=== PATIENT | male | born 1955 | race Caucasian/White ===

== ENCOUNTER 2022-02-26 17:17 | Emergency (ER) | payer MEDICARE, BC, SELFPAY ==
[2022-02-26 17:37] VITALS: BP 167/69; PULSE 69; RESP 18; TEMP 37.7; O2SAT 98; BMI 35.0
--- NOTE | 2022-02-26 17:44 | DI.RAD.S_ITS ---
PROCEDURE: XR CHEST 1V INDICATIONS: Shortness of breath TECHNIQUE: One view of the chest was acquired. COMPARISON: None. FINDINGS: Surgical changes and devices: None. Lungs and pleura: Lungs are clear. No pleural effusions or pneumothorax. There is linear platelike atelectasis on the right mid lung. Mediastinum: Mediastinal contours appear normal. Heart size is normal. Bones and chest wall: No suspicious bony lesions. Overlying soft tissues appear unremarkable. IMPRESSION: No acute cardiopulmonary abnormality. Dictated by: Daquan Alexander M.D. on 02/26/2022 at 18:36 Approved by: Daquan Alexander M.D. on 02/26/2022 at 18:36
[2022-02-26 18:28] LABS: Influenza A - CEPHEID Flu A NEGATIVE (NEGATIVE); Influenza B - CEPHEID Flu B NEGATIVE (NEGATIVE); Respiratory Syncytial Virus Negative (Negative)
[2022-02-26 18:50] LABS: COVID-19 CEPHEID 4-PLEX PCR Negative (Negative)
[2022-02-26 20:06] LABS: Add Manual Diff / Slide Review NO; Basophils Absolute Auto 0 /uL (0-100); Basophils Percent Auto 0.4 % (0-2); Eosinophils Absolute Auto 100 /uL (0-450); Eosinophils Percent Auto 1.1 % (2-4); Hematocrit 39.5 % (41-53); Hemoglobin 13.5 g/dL (13.5-17.5); Lymphocytes Absolute Auto 500 /uL (1100-4500); Lymphocytes Percent Auto 7.1 % (25-40); Mean Corpuscular HGB Conc 34.3 % (30-36); Mean Corpuscular Hemoglobin 29.3 PG (26-34); Mean Corpuscular Volume 85.6 fL (80-100); Monocytes Absolute Auto 600 /uL (0-900); Monocytes Percent Auto 7.5 % (3-14); Neutrophils Absolute Auto 6200 /uL (1500-7000); Neutrophils Percent Auto 83.9 % (50-75); Platelet Count 222 X10^3/uL (150-400); Red Blood Cell Count 4.61 X10^6/uL (4.5-5.9); Red Cell Distribution Width 14.7 % (11.6-14.8); White Blood Cell Count 7.4 X10^3/uL (4.5-11.0)
[2022-02-26 20:12] LABS: INR 1.1 (0.9-1.3); Prothrombin Time 13.1 SECONDS (10.1-12.7)
[2022-02-26 20:17] LABS: Lactate (Lactic Acid) 1.3 mmol/L (0.7-2.1)
[2022-02-26 20:18] LABS: Alanine Aminotransferase 43 IU/L (<50); Albumin 4.2 g/dL (3.5-5.0); Albumin Globulin Ratio 1.5 (1.0-2.8); Alkaline Phosphatase 68 U/L (38-126); Aspartate Aminotransferase 27 IU/L (17-59); BUN Creatinine Ratio 12.2 (6-22); Bilirubin Total 0.6 mg/dL (0.2-1.3); Blood Urea Nitrogen 12 mg/dL (9-20); Calcium 8.9 mg/dL (8.4-10.2); Carbon Dioxide 29 mmol/L (22-32); Chloride 98 mmol/L (98-107); Estimated Glomerular Filt Rate > 60 mL/min (>60); Globulin 2.8 g/dL (1.7-4.1); Glucose 156 mg/dL (80-110); HEMOLYSIS < 15 (0-50); Potassium 3.5 mmol/L (3.4-5.1); Sodium 135 mmol/L (137-145)
[2022-02-26 20:30] LABS: NT-proBNP (BNP-Adult 18+) 131 pg/mL (<125); Troponin I 0.018 ng/mL (0.01-0.034)
--- NOTE | 2022-02-26 22:30 | ED_ITS ---
HPI - General Adult General Chief complaint: Shortness of Breath/Dyspnea Stated complaint: fever is going up, cough Time Seen by Provider: 02/26/22 22:15 Source: patient Mode of arrival: Ambulatory Limitations: no limitations History of Present Illness HPI narrative: 66-year-old male who is here for evaluation for approximately 5 days of fever, shortness of breath, sore throat, sinus congestion. He did have COVID a little over 1 month ago but the symptoms he was experiencing at that time have resolved. He seemed to be new symptoms. No known sick contacts. No travel. has no symptoms. No vomiting. No change in bowel habits. Related Data Previous Rx's Medication Instructions Recorded albuterol sulfate 90 mcg/actuation 2 puff inhalation Q4-6H PRN 02/26/22 aerosol inhaler shortness of breath or wheezing #8.5 grams benzonatate 100 mg capsule 100 mg PO TID PRN cough #14 caps 02/26/22 Review of Systems Constitutional Constitutional: Reports system reviewed and no additional complaints, except as documented ENT Ears, Nose, Mouth, and Throat: Reports system reviewed and no additional complaints, except as documented Cardiovascular Cardiovascular: Reports system reviewed and no additional complaints, except as documented Respiratory Respiratory: Reports system reviewed and no additional complaints, except as documented Gastrointestinal Gastrointestinal: Reports system reviewed and no additional complaints, except as documented Integumentary/Breasts Skin/Breast: Reports system reviewed and no additional complaints, except as documented Hematologic/Lymphatic On Anticoagulants: No Allergic/Immunologic Allergic/Immunologic: Reports system reviewed and no additional complaints, except as documented Patient History alcohol intake frequency: a few times a month Substance Use Type: does not use Exam Initial Vital Signs Initial Vital Signs: Vital Signs Temperature 100 F H 02/26/22 17:37 Pulse Rate 69 02/26/22 17:37 Respiratory Rate 18 02/26/22 17:37 Blood Pressure 167/69 H 02/26/22 17:37 Pulse Oximetry 98 02/26/22 17:37 Oxygen Delivery Method 02/26/22 17:37 Const General: cooperative, healthy appearing, comfortable, well developed and No ill appearing Limitations: mental status not altered HENMT Head: normal to inspection and normocephalic Ears: TM's normal bilaterally Nose: external nose normal Mouth: oral mucosae normal and moist mucous membranes Resp Effort & Inspection: normal respiratory effort Auscultation: clear to auscultation bilaterally Cardio Rate: regular rate Rhythm: regular rhythm GI Inspection: non-distended Palpation: soft, No firm and No tender Skin Lesions: no lesions Neuro General: patient alert, patient awake, patient oriented x3 and moves all extremities Speech: speech normal Extrem General: capillary refill normal Psych Appearance: grossly normal and well kempt Course Orders Ordered: ED Orders 02/26/22 17:43 Covid-19 + FLU A/B + RSV - PCR Stat Throat Culture Stat 02/26/22 17:44 XR chest 1V Stat EKG-12 Lead Stat Measure peak expiratory flow ONCE RT Consult Eval and Treat NOW 02/26/22 19:43 Complete Blood Count AUTO DIFF Stat Comprehensive Metabolic Panel Stat Lactate (Lactic Acid) Stat NT-proBNP (BNP-Adult 18+) Stat Prothrombin Time INR Stat Troponin I Stat Vital Signs Vital signs: Vital Signs - 8 hr 02/26/22 22:47 Pulse Rate 58 L Respiratory Rate 16 Blood Pressure 138/68 Pulse Oximetry 95 Oxygen Delivery Method Room Air Medical Decision Making Lab Data Lab results reviewed: Yes I reviewed the patient's lab results. Result diagrams: 02/26/22 19:43 02/26/22 19:43 Labs: Lab Results 02/26/22 02/26/22 02/26/22 Range/Units 17:43 19:43 19:43 WBC 7.4 (4.5-11.0) X10^3/uL RBC 4.61 (4.5-5.9) X10^6/uL Hgb 13.5 (13.5-17.5) g/dL Hct 39.5 L (41-53) % MCV 85.6 (80-100) fL MCH 29.3 (26-34) PG MCHC 34.3 (30-36) % RDW 14.7 (11.6-14.8) % Plt Count 222 (150-400) X10^3/uL Neut % (Auto) 83.9 H (50-75) % Lymph % (Auto) 7.1 L (25-40) % Newton % (Auto) 7.5 (3-14) % Eos % (Auto) 1.1 L (2-4) % Baso % (Auto) 0.4 (0-2) % Neut # (Auto) 6200 (1587-4683) /uL Lymph # (Auto) 500 L (3452-8899) /uL Newton # (Auto) 600 (0-900) /uL Eos # (Auto) 100 (0-450) /uL Baso # (Auto) 0 (0-100) /uL PT 13.1 H (10.1-12.7) SECONDS INR 1.1 (0.9-1.3) Sodium (137-145) mmol/L Potassium (3.4-5.1) mmol/L Chloride (98-107) mmol/L Carbon Dioxide (22-32) mmol/L BUN (9-20) mg/dL Creatinine (0.66-1.25) mg/dL Estimated GFR (>60) mL/min BUN/Creatinine Ratio (6-22) Glucose (80-110) mg/dL Lactate (0.7-2.1) mmol/L Calcium (8.4-10.2) mg/dL Total Bilirubin (0.2-1.3) mg/dL AST (17-59) IU/L ALT (<50) IU/L Alkaline Phosphatase (38-126) U/L Troponin I (0.01-0.034) ng/mL NT-Pro-B Natriuret Pep (<125) pg/mL Total Protein (6.3-8.2) g/dL Albumin (3.5-5.0) g/dL Globulin (1.7-4.1) g/dL Albumin/Globulin Ratio (1.0-2.8) SARS-CoV-2 (PCR) Negative (Negative) Influenza A (RT-PCR) Flu a negative (NEGATIVE) Influenza B (RT-PCR) Flu b negative (NEGATIVE) RSV (PCR) Negative (Negative) 02/26/22 02/26/22 Range/Units 19:43 19:43 WBC (4.5-11.0) X10^3/uL RBC (4.5-5.9) X10^6/uL Hgb (13.5-17.5) g/dL Hct (41-53) % MCV (80-100) fL MCH (26-34) PG MCHC (30-36) % RDW (11.6-14.8) % Plt Count (150-400) X10^3/uL Neut % (Auto) (50-75) % Lymph % (Auto) (25-40) % Newton % (Auto) (3-14) % Eos % (Auto) (2-4) % Baso % (Auto) (0-2) % Neut # (Auto) (2828-6159) /uL Lymph # (Auto) (2081-2679) /uL Newton # (Auto) (0-900) /uL Eos # (Auto) (0-450) /uL Baso # (Auto) (0-100) /uL PT (10.1-12.7) SECONDS INR (0.9-1.3) Sodium 135 L (137-145) mmol/L Potassium 3.5 (3.4-5.1) mmol/L Chloride 98 (98-107) mmol/L Carbon Dioxide 29 (22-32) mmol/L BUN 12 (9-20) mg/dL Creatinine 0.98 (0.66-1.25) mg/dL Estimated GFR > 60 (>60) mL/min BUN/Creatinine Ratio 12.2 (6-22) Glucose 156 H (80-110) mg/dL Lactate 1.3 (0.7-2.1) mmol/L Calcium 8.9 (8.4-10.2) mg/dL Total Bilirubin 0.6 (0.2-1.3) mg/dL AST 27 (17-59) IU/L ALT 43 (<50) IU/L Alkaline Phosphatase 68 (38-126) U/L Troponin I 0.018 (0.01-0.034) ng/mL NT-Pro-B Natriuret Pep 131 H (<125) pg/mL Total Protein 7.0 (6.3-8.2) g/dL Albumin 4.2 (3.5-5.0) g/dL Globulin 2.8 (1.7-4.1) g/dL Albumin/Globulin Ratio 1.5 (1.0-2.8) SARS-CoV-2 (PCR) (Negative) Influenza A (RT-PCR) (NEGATIVE) Influenza B (RT-PCR) (NEGATIVE) RSV (PCR) (Negative) Point of Care Testing Rapid Strep A Negative Point of care testing: Point of Care Testing Rapid Strep A Negative Imaging Data Chest x-ray: Radiologist's Impression: [address] [address] XRay Report Signed Patient: Brayden Guo MR#: [id number] : 1955 Acct:[id number] Age/Sex: 66 / M Date of Service: 02/26/22 Loc: ED Accession Number: [id number] ?? Procedure: XR chest 1V Ordering Provider: David Beatty MD PROCEDURE:? XR CHEST 1V ? INDICATIONS:? Shortness of breath ? TECHNIQUE:? One view of the chest was acquired.? ? COMPARISON:? None. ? FINDINGS:? ? Surgical changes and devices:? None.? ? Lungs and pleura:? Lungs are clear.? No pleural effusions or pneumothorax.? There is linear platelike atelectasis on the right mid lung. ? Mediastinum:? Mediastinal contours appear normal.? Heart size is normal.? ? Bones and chest wall:? No suspicious bony lesions.? Overlying soft tissues appear unremarkable.? ? IMPRESSION:? No acute cardiopulmonary abnormality. ? ? ? Dictated by: Daquan Alexander M.D. on 02/26/2022 at 18:36 ? ? Approved by: Daquan Alexander M.D. on 02/26/2022 at 18:36?? MDM Narrative Medical decision making narrative: Patient is well-appearing. His COVID flu and RSV are negative. His chest x-ray is unremarkable. He has clear lung exam. No respiratory distress. Patient does have a URI like presentation. I did discuss this with him that we did not test for every possibility of a potential viral illness. There is no indication for antibiotics. We did discuss things he could try to help with his cough. We talked about [id number] medications. He states at night he is having some issues with wheezing so a prescription for albuterol was prescribed. He was given return precautions. He expressed understanding and agreement. Discharge Plan Departure Patient Disposition: Home Clinical Impression: Cough, Upper respiratory infection Instructions: DI for Cough -- Adult Activity Restrictions/Additional Instructions: You can take Tylenol or ibuprofen for any fevers. Prescription for a cough medication and also an inhaler was sent to the pharmacy of your choice and police take them as needed and as directed. Return to the emergency department for any new or worsening symptoms. Prescriptions: New benzonatate 100 mg capsule 100 mg PO TID PRN (Reason: cough) Qty: 14 0RF albuterol sulfate 90 mcg/actuation HFA aerosol inhaler 2 puff inhalation Q4-6H PRN (Reason: shortness of breath or wheezing) Qty: 8.5 0RF Stand Alone Forms: Patient Portal/API
[2022-02-26 22:47] VITALS: BP 138/68; PULSE 58; RESP 16; O2SAT 95
== END 2022-02-26 22:48 | disposition home or self-care (01) ==
PROVIDERS: Emergency Medicine; Emergency Provider Emergency Medicine
DX: J06.9 Acute upper respiratory infection, unspecified (principal); R05.9 Cough, unspecified; Z20.822 Contact with and (suspected) exposure to COVID-19
CPT/HCPCS: 0241U; 36415; 71045; 80053; 83605; 83880; 84484; 85025; 85610; 87070; 87880; 99283; 99284

== ENCOUNTER → 2022-12-29 12:59 | Outpatient (CLI) | payer MEDICARE, BC, SELFPAY | PROVIDERS: Visit Provider Physician Assistant | DX: R30.0 Dysuria (principal) | CPT/HCPCS: 87086 ==

== ENCOUNTER 2023-08-10 15:51 | Emergency (ER) | payer MEDICARE, BC, SELFPAY ==
[2023-08-10] VITALS (9 sets, daily range): BP systolic 150–191; BP diastolic 79–95; PULSE 59–75; RESP 16; TEMP 36.8; O2SAT 94–99; BMI 31.8
--- NOTE | 2023-08-10 19:34 | ED.GENADULT ---
HPI - General Adult General Chief complaint: Urogenital-Male Stated complaint: pst sx complication, surgery on 08/06 Time Seen by Provider: 08/10/23 19:34 Source: patient Mode of arrival: Family Vehicle History of Present Illness HPI narrative: 68-year-old gentleman with a history of asthma, hypertension, gout, diabetes, hyperlipidemia who reportedly had bladder surgery August 06 at [facility]. He has a history of prostate cancer in 2014 had brachytherapy, had a prostatectomy in 2019 and has had urinary incontinence since. He had a urethral stricture and the plan was to dilate the stricture and place a prosthetic valve however there was enough scar tissue that is valve was not able to be placed. Plan B was to open the stricture, have him return and create about flap with oral tissue at some point in the future. He has not appointment to see his oncologist (currently PSA levels are undetectable) on the and is supposed to contact [facility] to schedule telemedicine visit sometime in the next couple of days. He is scheduled to have his Butler catheter taken out tomorrow morning. He comes in today complaining that there is increasing discomfort, and mild purulent discharge from the meatus. He has not having fevers, cough, chills. He does not feel ill. He has not having increased abdominal pain. Vital signs do not suggest any evidence of sepsis. Related Data Home Medications Medication Instructions Recorded Confirmed allopurinol 100 mg tablet 100 mg PO DAILY 12/29/22 12/29/22 amlodipine 10 mg tablet 10 mg PO DAILY 12/29/22 12/29/22 hydrochlorothiazide 25 mg tablet 25 mg PO DAILY 12/29/22 12/29/22 lisinopril 40 mg tablet 40 mg PO DAILY 12/29/22 12/29/22 metformin 1,000 mg tablet 1,000 mg PO BID 12/29/22 12/29/22 potassium chloride 20 mEq 20 meq PO BID 12/29/22 12/29/22 tablet,extended release rosuvastatin PO 12/29/22 12/29/22 Previous Rx's Medication Instructions Recorded albuterol sulfate 90 mcg/actuation 2 puff inhalation Q4-6H PRN 02/26/22 aerosol inhaler shortness of breath or wheezing #8.5 grams benzonatate 100 mg capsule 100 mg PO TID PRN cough #14 caps 02/26/22 Allergies Allergy/AdvReac Type Severity Reaction Status Date / Time sulfamethoxazole Allergy Mild Rash Verified 12/29/22 13:00 [From Bactrim] trimethoprim [From Bactrim] Allergy Mild Rash Verified 12/29/22 13:00 Review of Systems Review of Systems Narrative: Pertinent positive and negative findings as per HPI Patient History Medical History (Updated 08/10/23 @ 20:21 by Deborah Franz MD) Hypertension Prostate cancer Social History Smoking Status: Former smoker Smoking Status: Former smoker alcohol intake frequency: a few times a month Substance Use Type: does not use Exam Initial Vital Signs Initial Vital Signs: Vital Signs Temperature 98.2 F 08/10/23 15:56 Pulse Rate 75 08/10/23 15:56 Respiratory Rate 16 08/10/23 15:56 Blood Pressure 163/95 H 08/10/23 15:56 Pulse Oximetry 96 08/10/23 15:56 Oxygen Delivery Method Room Air 08/10/23 15:56 General: Alert appropriate in no acute distress Respiratory: Able to speak in full sentences, no obvious respiratory distress Skin: No obvious rashes, warm and dry Abdomen: Nontender, good bowel tones Neurologic: Grossly intact no obvious asymmetries or abnormalities Psych: appropriate insight and affect, cooperative Genitals: He does not have any erosions at the penile meatus but the meatus does look somewhat irritated there is a minor amount of purulent discharge. There was no tenderness along the shaft of the penis and no suprapubic tenderness Course Vital Signs Vital signs: Vital Signs - 8 hr 08/10/23 15:56 08/10/23 19:14 08/10/23 19:15 Temperature 98.2 F Pulse Rate 75 69 Respiratory Rate 16 Blood Pressure 163/95 H 161/88 H Pulse Oximetry 96 95 Oxygen Delivery Method Room Air 08/10/23 19:15 08/10/23 19:30 08/10/23 19:30 Temperature Pulse Rate 63 61 Respiratory Rate Blood Pressure 150/79 H Pulse Oximetry 95 94 Oxygen Delivery Method 08/10/23 20:00 08/10/23 20:00 08/10/23 20:30 Temperature Pulse Rate 65 65 Respiratory Rate Blood Pressure 164/82 H Pulse Oximetry 95 99 Oxygen Delivery Method 08/10/23 20:30 08/10/23 21:00 08/10/23 21:00 Temperature Pulse Rate 59 L Respiratory Rate Blood Pressure 177/91 H 178/92 H Pulse Oximetry 97 Oxygen Delivery Method 08/10/23 21:30 08/10/23 21:30 Temperature Pulse Rate 59 L Respiratory Rate Blood Pressure 191/90 H Pulse Oximetry 98 Oxygen Delivery Method Medical Decision Making MDM Narrative Medical decision making narrative: CC: Pain from Butler catheter Complicating co-morbidities: History of prostate cancer, urethral stricture, surgery at [facility] with discharge yesterday. Data collected from: patient Medical records reviewed: Patient actually is quite a good historian, no other medical records are immediately available Differential considered: Irritation to the catheter, urinary tract infection, latex sensitivity, traction from the catheter Exam documented above, pertinent findings include: Minor discharge from the meatus around the catheter, urine itself looks unremarkable. No significant irritation to the meatus itself Discussion: 68-year-old gentleman with irritation from his Butler catheter that scheduled to be removed in less than 12 hours. It was placed postoperatively after urethral stricture was dilated. With shared decision-making we opted to simply remove the Butler catheter with the understanding that it would need to be replaced he is unable to void in the emergency department. With water and bladder increasingly full he is able to void with minimal difficulty, 300 cc out. We will have him keep his follow up appointments with both Urology as a tele medicine appointment and oncology coming up this Thursday. Encouraged him to return if he has worsening symptoms Discharge Plan Departure Patient Disposition: Home Clinical Impression: Butler catheter problem Qualifiers: Encounter type: initial encounter Qualified Code(s): T83.9XXA - Unspecified complication of genitourinary prosthetic device, implant and graft, initial encounter Activity Restrictions/Additional Instructions: Thank you for coming in today Typically symptoms like you are having our because your body is reacting to the catheter itself, infection, the catheter is pulling. At this point I suspect that your body is responding to the material of the catheter. As you are supposed to have catheter out tomorrow, which taken it out in the emergency department. You are able to void in the ER. If you find that you are unable to void through the evening or into the sales service promoter hours, you will need to return and have the catheter replaced. At this point, I do not think that you need any additional antibiotics or other treatment If you find that you are getting worse or develop any new symptoms, please feel free to return to the emergency department for further evaluation. Please do keep your follow up appointments with Urology and your oncologist. Prescriptions: No Action potassium chloride 20 mEq tablet extended release 20 meq PO BID lisinopril 40 mg tablet 40 mg PO DAILY hydrochlorothiazide 25 mg tablet 25 mg PO DAILY amlodipine 10 mg tablet 10 mg PO DAILY metformin 1,000 mg tablet 1,000 mg PO BID allopurinol 100 mg tablet 100 mg PO DAILY rosuvastatin PO benzonatate 100 mg capsule 100 mg PO TID PRN (Reason: cough) Qty: 14 0RF albuterol sulfate 90 mcg/actuation HFA aerosol inhaler 2 puff inhalation Q4-6H PRN (Reason: shortness of breath or wheezing) Qty: 8.5 0RF Referrals: Miscellaneous,Doctor, MD [Primary Care Provider] - Stand Alone Forms: Patient Portal/API
--- NOTE | 2023-08-10 20:25 | PC.NURSE ---
per verbal order from Dr. Franz this RN removed his mohamud catheter and gave him a big glass of ice water
== END 2023-08-10 21:40 | disposition home or self-care (01) ==
PROVIDERS: Emergency Provider Emergency Medicine
DX: T83.9XXA Unspecified complication of genitourinary prosthetic device, implant and graft, initial encounter (principal); Z98.890 Other specified postprocedural states
CPT/HCPCS: 99281

== ENCOUNTER 2023-08-12 08:52 | Emergency (ER) | payer MEDICARE, BC, SELFPAY ==
[2023-08-12 08:58] VITALS: BP 161/109; PULSE 77; PULSE 89; RESP 18; TEMP 36.8; O2SAT 97; O2SAT 98; BMI 31.8
[2023-08-12 09:00] VITALS: PULSE 78; O2SAT 97
--- NOTE | 2023-08-12 09:14 | ED.MALEGU ---
HPI - Male Genitourinary General Chief complaint: Urogenital-Male Stated complaint: Infection in his Penis Time Seen by Provider: 08/12/23 09:03 Source: patient Mode of arrival: Ambulatory History of Present Illness HPI Narrative: Patient 68-year-old male history of asthma hypertension gout diabetes pulmonary embolism in 2019 after radical prostatectomy had recent bladder surgery on August 06 [place] presents today with discharge from penis. He was seen and evaluated here on August 09 with Butler catheter in place. Butler catheter was removed he reports that he has been urinating he has urinary incontinence since 2019 in his prostatectomy. He continues to have the same. However he reports that there is some brownish spots. Denies any fever or abdominal pain. He is a postop follow-up appointment in a couple of days. Related Data Home Medications Medication Instructions Recorded Confirmed allopurinol 100 mg tablet 100 mg PO DAILY 12/29/22 12/29/22 amlodipine 10 mg tablet 10 mg PO DAILY 12/29/22 12/29/22 hydrochlorothiazide 25 mg tablet 25 mg PO DAILY 12/29/22 12/29/22 lisinopril 40 mg tablet 40 mg PO DAILY 12/29/22 12/29/22 metformin 1,000 mg tablet 1,000 mg PO BID 12/29/22 12/29/22 potassium chloride 20 mEq 20 meq PO BID 12/29/22 12/29/22 tablet,extended release rosuvastatin PO 12/29/22 12/29/22 Previous Rx's Medication Instructions Recorded albuterol sulfate 90 mcg/actuation 2 puff inhalation Q4-6H PRN 02/26/22 aerosol inhaler shortness of breath or wheezing #8.5 grams benzonatate 100 mg capsule 100 mg PO TID PRN cough #14 caps 02/26/22 cephalexin 500 mg capsule 500 mg PO BID 7 days #14 caps 08/12/23 Allergies Allergy/AdvReac Type Severity Reaction Status Date / Time sulfamethoxazole Allergy Mild Rash Verified 08/12/23 09:02 [From Bactrim] trimethoprim [From Bactrim] Allergy Mild Rash Verified 08/12/23 09:02 Patient History Medical History Hypertension Prostate cancer Social History Smoking Status: Former smoker Smoking Status: Former smoker alcohol intake frequency: a few times a month Substance Use Type: does not use Exam Initial Vital Signs Initial Vital Signs: Vital Signs Temperature 98.2 F 08/12/23 08:58 Pulse Rate 77 08/12/23 08:58 Respiratory Rate 18 08/12/23 08:58 Blood Pressure 161/109 H 08/12/23 08:58 Pulse Oximetry 98 08/12/23 08:58 Oxygen Delivery Method Room Air 08/12/23 08:58 GENERAL: 68 year old patient appears stated age. Well-developed patient, in mild distress. HEENT: Atraumatic. Normocephalic. EOMI, neck supple CARDIOVASCULAR: Peripheral pulses intact RESPIRATORY: Speaks in full sentences respiratory distress GASTROINTESTINAL: Soft nontender no distention : Nurse F in room for evaluation, meatus is nonbloody no gross discharge no obvious sores penis itself appears healthy EXTREMITIES: No edema or joint tenderness. BACK: Nontender without deformity or crepitance. No flank tenderness. NEURO: AOx3. SKIN: No rash or erythema of visible areas Course Orders Ordered: ED Orders 08/12/23 09:45 Ictotest Urine Stat UA Complete [Urinalysis and Microscopic] Stat Urine Culture Stat Vital Signs Vital signs: Vital Signs - 8 hr 08/12/23 08:58 08/12/23 08:58 08/12/23 08:58 Temperature 98.2 F Pulse Rate 77 89 Respiratory Rate 18 Blood Pressure 161/109 H 161/109 H Pulse Oximetry 98 97 Oxygen Delivery Method Room Air 08/12/23 09:00 08/12/23 09:30 08/12/23 10:14 Temperature Pulse Rate 78 69 69 Respiratory Rate Blood Pressure 135/73 Pulse Oximetry 97 95 95 Oxygen Delivery Method Room Air Room Air MDM - Male Genitourinary Lab Data Labs: Lab Results 08/12/23 Range/Units 09:45 Urine Color Yellow Urine Appearance Cloudy Urine pH 6.0 (4.5-8.0) Ur Specific [place] 1.015 (1.000-1.035) Urine Protein 3+ H (Negative) Urine Glucose (UA) Negative (Negative) g/dL Urine Ketones 1+ H (NEGATIVE) Urine Occult Blood 3+ H (Negative) Urine Nitrate Positive H (Negative) Urine Bilirubin 2+ H (NEGATIVE) Ur Bilirubin Confirm Negative (Negative) Urine Urobilinogen 1.0 (0.2) E.U./dL Ur Leukocyte Esterase Trace H (NEGATIVE) Urine RBC 10-30/hpf H (0-5/HPF) Urine WBC 5-10/hpf H (0-5/HPF) Ur Squamous Epith Cells 1-5 /hpf (0-5/HPF) Urine Bacteria Few (2-10) H (None) Hyaline Casts 0-1/lpf (None) Ur Culture Indicated? Specimen cultured Vol Urine Centrifuged Low vol <10ml (spun) A MDM Narrative Medical decision making narrative: Patient is a 68-year-old male with recent Butler catheter placement presenting today with some bloody discharge from his penis. No obvious sore or ulcer is noted on exam. Urinalysis is positive for nitrates and UTI. He again has no tachycardia hypotensive or fever. Reasonable to start him on 7 days of antibiotics. I discussed with him strict return precautions which she understands. Reports that he has had sepsis previously. Discharge Plan Departure Patient Disposition: Home Clinical Impression: Urinary tract infection Instructions: DI for Urinary Tract Infection (UTI) Activity Restrictions/Additional Instructions: *You have been diagnosed with UTI *What to do: At this time stay hydrated start antibiotics you should start feeling better in about 2-3 days *Continue to take medications as directed Keflex 500 mg twice a day for 7 days *Follow up with your primary care provider in 2-3 days or call [phone] *Return to ER if you should have increasing confusion decreasing intake of increasing abdominal pain or any new, worsening or concerning symptoms Prescriptions: New cephalexin 500 mg capsule 500 mg PO BID 7 Days Qty: 14 0RF No Action potassium chloride 20 mEq tablet extended release 20 meq PO BID lisinopril 40 mg tablet 40 mg PO DAILY hydrochlorothiazide 25 mg tablet 25 mg PO DAILY amlodipine 10 mg tablet 10 mg PO DAILY metformin 1,000 mg tablet 1,000 mg PO BID allopurinol 100 mg tablet 100 mg PO DAILY rosuvastatin PO benzonatate 100 mg capsule 100 mg PO TID PRN (Reason: cough) Qty: 14 0RF albuterol sulfate 90 mcg/actuation HFA aerosol inhaler 2 puff inhalation Q4-6H PRN (Reason: shortness of breath or wheezing) Qty: 8.5 0RF Referrals: Miscellaneous,DoctorMD [Primary Care Provider] - Stand Alone Forms: Patient Portal/API
--- NOTE | 2023-08-12 09:28 | PC.NURSE ---
Pt has chronic incontinence since surgery in 2020. Recent surgery on his bladder experienced complications and were unable to complete surgery to regain continence. Pt states planning to skin graft his bladder, allow that to heal, then move forward with regaining continence. Reports small amount of brown discharge/dribbling. Producing bright red urine prior to arrival.
[2023-08-12 09:30] VITALS: PULSE 69; O2SAT 95
[2023-08-12 09:50] LABS: Appearance Urine UA CLOUDY; Bilirubin Urine UA 2+ (NEGATIVE); Color Urine UA YELLOW; Glucose Urine UA NEGATIVE (Negative); Ketones Urine UA 1+ (NEGATIVE); Leukocyte Esterase Urine UA TRACE (NEGATIVE); Nitrite Urine UA POSITIVE (Negative); Occult Blood Urine UA 3+ (Negative); Protein Urine UA 3+ (Negative); Specific Gravity Urine UA 1.015 (1.000-1.035)
[2023-08-12 10:02] LABS: Bacteria Urine Few (2-10); Culture Indicated Urine Specimen Cultured; Hyaline Casts Urine 0-1/LPF; RBC Urine 10-30/HPF (0-5/HPF); Squamous Epithelial Cell Urine 1-5 /HPF (0-5/HPF); Urine Volume Low Vol <10mL (spun); WBC Urine 5-10/HPF (0-5/HPF)
[2023-08-12 10:14] VITALS: BP 135/73; PULSE 69; O2SAT 95
[2023-08-12 12:03] LABS: Ictotest Urine Negative (Negative)
== END 2023-08-12 10:14 | disposition home or self-care (01) ==
PROVIDERS: Emergency Provider Emergency Medicine
DX: N39.0 Urinary tract infection, site not specified (principal)
CPT/HCPCS: 51798; 81001; 87077; 87086; 87186; 99282; 99283

== ENCOUNTER 2024-01-28 10:26 | Emergency (ER) | payer MEDICARE, BC, SELFPAY ==
[2024-01-28] VITALS (7 sets, daily range): BP systolic 143–187; BP diastolic 75–88; PULSE 63–67; RESP 14; TEMP 36.7; O2SAT 96–99; BMI 29.7
--- NOTE | 2024-01-28 11:00 | ED_ITS ---
HPI - General Adult General Chief complaint: Urogenital-Male Stated complaint: per pt bleeding from bladder Time Seen by Provider: 01/28/24 10:46 Source: patient Mode of arrival: Ambulatory History of Present Illness HPI narrative: 68-year-old gentleman with background history of diabetes, hypertension, radical prostatectomy in 2019 and complicating pulmonary embolism for which he continues to be anticoagulated. Continued bladder and prostate issues followed with the [facility] on January 11 he had a suprapubic catheter placed in anticipation of reconstructive lower bladder surgery. He has been doing well with the catheter until last night when he noticed blood in the catheter that he describes as a ?merlot colored. No pain, fevers and catheter does continue to drain. He talked to the urology clinic at the [facility] who recommended ER evaluation. Related Data Home Medications Medication Instructions Recorded Confirmed allopurinol 100 mg tablet 100 mg PO DAILY 12/29/22 12/29/22 amlodipine 10 mg tablet 10 mg PO DAILY 12/29/22 12/29/22 hydrochlorothiazide 25 mg tablet 25 mg PO DAILY 12/29/22 12/29/22 lisinopril 40 mg tablet 40 mg PO DAILY 12/29/22 12/29/22 metformin 1,000 mg tablet 1,000 mg PO BID 12/29/22 12/29/22 potassium chloride 20 mEq 20 meq PO BID 12/29/22 12/29/22 tablet,extended release rosuvastatin PO 12/29/22 12/29/22 Previous Rx's Medication Instructions Recorded albuterol sulfate 90 mcg/actuation 2 puff inhalation Q4-6H PRN 02/26/22 aerosol inhaler shortness of breath or wheezing #8.5 grams benzonatate 100 mg capsule 100 mg PO TID PRN cough #14 caps 02/26/22 ciprofloxacin HCl 500 mg tablet 500 mg PO BID #14 tabs 01/28/24 (Cipro) Allergies Allergy/AdvReac Type Severity Reaction Status Date / Time sulfamethoxazole Allergy Mild Rash Verified 01/28/24 10:36 [From Bactrim] trimethoprim [From Bactrim] Allergy Mild Rash Verified 01/28/24 10:36 Review of Systems Review of Systems Narrative: Pertinent positive and negative findings as per HPI Patient History Medical History Hypertension Prostate cancer Social History Smoking Status: Former smoker Smoking Status: Former smoker alcohol intake frequency: a few times a month Exam Initial Vital Signs Initial Vital Signs: Vital Signs Temperature 98.0 F 01/28/24 10:27 Pulse Rate 66 01/28/24 10:27 Respiratory Rate 14 01/28/24 10:27 Blood Pressure 187/88 H 01/28/24 10:27 Pulse Oximetry 99 01/28/24 10:27 Oxygen Delivery Method Room Air 01/28/24 10:27 General: Alert appropriate in no acute distress Respiratory: Able to speak in full sentences, no obvious respiratory distress Skin: No obvious rashes, warm and dry Neurologic: Grossly intact no obvious asymmetries or abnormalities Abdomen: No tenderness to palpation, no flank pain Psych: appropriate insight and affect, cooperative : Suprapubic cath appropriately placed, light red urine without clots appreciated this time. Course Orders Ordered: ED Orders 01/28/24 10:55 Urinalysis and Microscopic Stat 01/28/24 12:45 Urine Culture Stat Vital Signs Vital signs: Vital Signs - 8 hr 01/28/24 10:27 Temperature 98.0 F Pulse Rate 66 Respiratory Rate 14 Blood Pressure 187/88 H Pulse Oximetry 99 Oxygen Delivery Method Room Air Medical Decision Making Lab Data Lab results narrative: Most recent urine culture from July of 2023: Urine Culture Final 08/14/23-0752 Organism 1 Morganella morganii ssp miki [place] Count 50,000 - 60,000 CFU/ml Action to follow No Further Workup Isolate may develop resistance upon exposure to third generation cephalosporins. When treating infections with a high bacterial burden and limited source control (e.g. endocarditis & ENROBER TENDER infections), consider alternative antibiotics; even if culture results show susceptibility to ceftriaxone and/or ceftazidime. 1. Morganella morganii ssp miki M.I.C. RX --------- --- * Amoxicillin/Clavulanate >=32 R * Ampicillin >=32 R * Ampicillin/Sulbactam >=32 R * Cefazolin >=64 R * Cefepime <=1 S * Ceftazidime <=1 S * Ceftriaxone <=1 S * Ciprofloxacin <=0.25 S * Ertapenem <=0.5 S * Gentamicin <=1 S * Imipenem 2 I * Levofloxacin <=0.12 S * Nitrofurantoin 128 R * Tobramycin <=1 S * Trimethoprim/Sulfamethoxazole <=20 S * Piperacillin/Tazobactam <=4 S Labs: Lab Results 01/28/24 Range/Units 10:55 Urine Color Red Urine Appearance Sl cloudy Urine pH 5.0 (4.5-8.0) Ur Specific [place] <=1.005 (1.000-1.035) Urine Protein 2+ H (Negative) Urine Glucose (UA) Negative (Negative) g/dL Urine Ketones 1+ H (NEGATIVE) Urine Occult Blood 3+ H (Negative) Urine Nitrate Positive H (Negative) Urine Bilirubin Negative (NEGATIVE) Urine Urobilinogen 0.2 (0.2) E.U./dL Ur Leukocyte Esterase Negative (NEGATIVE) Urine RBC 30-100/hpf H (0-5/HPF) Urine WBC 5-10/hpf H (0-5/HPF) Ur Squamous Epith Cells 10-30 /hpf H D (0-5/HPF) Amorphous Sediment 1+ Urine Bacteria Few (2-10) H (None) Urine Mucus 1+ H (Negative) Ur Culture Indicated? Cult not indicated Vol Urine Centrifuged 10ml (spun) MDM Narrative Medical decision making narrative: CC: Hematuria Complicating co-morbidities: Suprapubic catheter, bladder cancer, followed at the [facility] anticipated reconstructive surgery February 29, 2024, diabetes, hypertension, hyperlipidemia Data collected from: patient Medical records reviewed: Prior ER notes a similar findings reviewed. Patient is able to clearly describe recent interactions and previous interactions with the urology clinic at the [facility] Differential considered: Urinary tract infection, radiation cystitis, broken blood vessel, bladder cancer or erosion Exam documented above, pertinent findings include: Light red urine through suprapubic catheter with exam otherwise benign Lab Test results independently reviewed as above. Pertinent findings: Urinalysis shows significant number of red cells. Urine will be cultured Treatments: Irrigation of his Butler catheter with 2 L of sterile water Discussion: 68-year-old gentleman with complicated prostate Butler catheter and bladder history followed at the [facility]. Hematuria for the last 12 hours. It is beginning to clear after flushing. Urine has been cultured but we will go ahead and treat him with ciprofloxacin based on culture from 5 months ago showing Morganella sensitive to Cipro. He will follow up with his urologist at [facility] and return if there is continued problems with bleeding, clots or you are not returning through the Butler catheter. He is safe for discharge Discharge Plan Departure Patient Disposition: Home Clinical Impression: Prostate cancer Hematuria Qualifiers: Hematuria type: gross Qualified Code(s): R31.0 - Gross hematuria Activity Restrictions/Additional Instructions: Thank you for coming in today I am sorry that you are having so many difficulties with your prostate, bladder and catheter. We did irrigate your bladder with 2 L of sterile water and did get additional clots out in the bleeding looks like it is slowed significantly. Based on urine culture from July of this year showing Morganella growing, I placed you on ciprofloxacin which should be effective. It is 1 pill morning and night for the next 7 days Prescription was electronically sent to [facility] Please do follow up with your [facility] urologist and if you find that you are having clots, no drainage through her catheter or other concerns please feel free to return to the ER Prescriptions: New ciprofloxacin HCl [Cipro] 500 mg tablet 500 mg PO BID Qty: 14 0RF No Action potassium chloride 20 mEq tablet extended release 20 meq PO BID lisinopril 40 mg tablet 40 mg PO DAILY hydrochlorothiazide 25 mg tablet 25 mg PO DAILY amlodipine 10 mg tablet 10 mg PO DAILY metformin 1,000 mg tablet 1,000 mg PO BID allopurinol 100 mg tablet 100 mg PO DAILY rosuvastatin PO benzonatate 100 mg capsule 100 mg PO TID PRN (Reason: cough) Qty: 14 0RF albuterol sulfate 90 mcg/actuation HFA aerosol inhaler 2 puff inhalation Q4-6H PRN (Reason: shortness of breath or wheezing) Qty: 8.5 0RF Referrals: Miscellaneous,Doctor, MD [Primary Care Provider] - Stand Alone Forms: Patient Portal/API/Survey
[2024-01-28 11:42] LABS: Appearance Urine UA SL CLOUDY; Bilirubin Urine UA NEGATIVE (NEGATIVE); Color Urine UA RED; Glucose Urine UA NEGATIVE (Negative); Ketones Urine UA 1+ (NEGATIVE); Leukocyte Esterase Urine UA NEGATIVE (NEGATIVE); Nitrite Urine UA POSITIVE (Negative); Occult Blood Urine UA 3+ (Negative); Protein Urine UA 2+ (Negative); Specific Gravity Urine UA <=1.005 (1.000-1.035); Urobilinogen Urine UA 0.2 E.U./dL (0.2)
[2024-01-28 11:44] LABS: Bacteria Urine Few (2-10); RBC Urine 30-100/HPF (0-5/HPF); Urine Volume 10mL (spun); WBC Urine 5-10/HPF (0-5/HPF)
[2024-01-28 11:45] LABS: Amorphous Sediment Urine 1+; Culture Indicated Urine Cult Not Indicated; Mucus Urine 1+ (Negative); Squamous Epithelial Cell Urine 10-30 /HPF (0-5/HPF)
--- NOTE | 2024-01-28 11:57 | PC.NURSE ---
Patient having bladder irrigation and is showing clear liquid with scant intermittent clots. Does not complain of pain and can tolerate approx 120cc of irrigation
--- NOTE | 2024-01-28 12:40 | PC.NURSE ---
Dr. Franz ordered 2,000ml sterile water suprapubic catheter flush. Sterile water administered by flushing port and then draining leg bag multiple times. See output for catheter drainage. Urine catheter bag slightly pink after flushing out multiple clots. Pt tolerated procedure well.
== END 2024-01-28 13:49 | disposition home or self-care (01) ==
PROVIDERS: Emergency Provider Emergency Medicine
DX: C61 Malignant neoplasm of prostate (principal); R31.0 Gross hematuria; Z96.0 Presence of urogenital implants
CPT/HCPCS: 51700; 81001; 87077; 87086; 87186; 99283; 99284

== ENCOUNTER 2024-05-15 21:23 | Emergency (ER) | payer MEDICARE, BC, SELFPAY ==
[2024-05-15 21:32] VITALS: BP 182/88; PULSE 55; RESP 16; TEMP 36.8; O2SAT 97; BMI 29.7
[2024-05-15 21:51] LABS: Appearance Urine UA SL CLOUDY; Bilirubin Urine UA NEGATIVE (NEGATIVE); Color Urine UA YELLOW; Glucose Urine UA NEGATIVE (Negative); Ketones Urine UA 1+ (NEGATIVE); Leukocyte Esterase Urine UA 1+ (NEGATIVE); Nitrite Urine UA POSITIVE (Negative); Occult Blood Urine UA 3+ (Negative); Protein Urine UA 3+ (Negative); Specific Gravity Urine UA 1.025 (1.000-1.035); Urobilinogen Urine UA 0.2 E.U./dL (0.2)
[2024-05-15 21:59] LABS: RBC Urine 1-5/HPF (0-5/HPF); Urine Volume 10mL (spun); WBC Urine 10-30/HPF (0-5/HPF)
[2024-05-15 22:00] LABS: Bacteria Urine Many (>30); Culture Indicated Urine Specimen Cultured; Squamous Epithelial Cell Urine 0-1 /HPF (0-5/HPF)
[2024-05-15 23:35] VITALS: PULSE 47
[2024-05-15 23:37] VITALS: BP 185/87; PULSE 59; O2SAT 97
[2024-05-16] VITALS (8 sets, daily range): BP systolic 155–181; BP diastolic 80–89; PULSE 56–63; O2SAT 94–97
--- NOTE | 2024-05-16 00:39 | ED.MALEGU ---
HPI - Male Genitourinary General Chief complaint: Urogenital-Male Stated complaint: pain in groin, bleeding around suprapubic catheter Time Seen by Provider: 05/16/24 00:24 Source: patient, RN notes reviewed and old records reviewed Mode of arrival: Ambulatory Limitations: no limitations History of Present Illness HPI Narrative: 69-year-old gentleman with a history of diabetes, hypertension, radical prostatectomy in 2019 and suprapubic catheter. Patient presents with complaint of bleeding from around his suprapubic catheter which started today as well as some right sided abdominal/groin pain. Patient states but worse with movement but not consistently. Denies any fevers or chills. No nausea or vomiting. No issues with bowel movements. He states his urine has been eliminated color and normal he has not seen any blood within the urine itself states it was fairly small amount of blood from around the suprapubic catheter. Has had issues with hematuria in the past but not in the last several months. Patient states he was due to have his catheter changed out soon. He follows with Urology in [place]. Patient did take some Tylenol prior to arrival. He defers anything for pain. Related Data Home Medications Medication Instructions Recorded Confirmed allopurinol 100 mg tablet 100 mg PO DAILY 12/29/22 12/29/22 amlodipine 10 mg tablet 10 mg PO DAILY 12/29/22 12/29/22 hydrochlorothiazide 25 mg tablet 25 mg PO DAILY 12/29/22 12/29/22 lisinopril 40 mg tablet 40 mg PO DAILY 12/29/22 12/29/22 metformin 1,000 mg tablet 1,000 mg PO BID 12/29/22 12/29/22 potassium chloride 20 mEq 20 meq PO BID 12/29/22 12/29/22 tablet,extended release rosuvastatin PO 12/29/22 12/29/22 Previous Rx's Medication Instructions Recorded albuterol sulfate 90 mcg/actuation 2 puff inhalation Q4-6H PRN 02/26/22 aerosol inhaler shortness of breath or wheezing #8.5 grams benzonatate 100 mg capsule 100 mg PO TID PRN cough #14 caps 02/26/22 ciprofloxacin HCl 500 mg tablet 500 mg PO BID #14 tabs 01/28/24 (Cipro) ciprofloxacin HCl 500 mg tablet 500 mg PO Q12H #20 tabs 05/16/24 meloxicam 7.5 mg tablet 7.5 mg PO DAILY PRN pain #5 tabs 05/16/24 Allergies Allergy/AdvReac Type Severity Reaction Status Date / Time sulfamethoxazole AdvReac Mild Rash Verified 05/15/24 21:32 [From Bactrim] trimethoprim [From Bactrim] AdvReac Mild Rash Verified 05/15/24 21:32 Penicillins AdvReac Rash Verified 05/15/24 21:32 Sulfa (Sulfonamide AdvReac Rash Verified 05/15/24 21:32 Antibiotics) Review of Systems Review of Systems ROS Unobtainable: All systems reviewed & are unremarkable except as noted in HPI and below Patient History Medical History Hypertension Prostate cancer Social History Smoking Status: Former smoker Smoking Status: Former smoker alcohol intake frequency: a few times a month Exam Narrative Exam Narrative: GENERAL: Alert and oriented x three, mild distress HEENT: Head normocephalic, atraumatic, EOMI, pupils reactive, face symmetric, moist mucous membranes NECK: Supple, full range of motion CARDIOVASCULAR: Regular rate and rhythm without murmurs, rubs or gallops. RESPIRATORY: Breath sounds equal bilaterally, no wheezes rales or rhonchi. ABDOMEN: Soft, nontender. Normoactive bowel sounds all 4 quadrants. No guarding or rebound, rigidity, no mass : No CVA tenderness, patient has suprapubic catheter present, has some dried blood that is easily removed no active bleeding. There is a small area of granulation tissue at the 9 o'clock position patient states that his urologist did put a small amount of silver nitrate there about a month or 2 ago. No ecchymosis no other discoloration of the skin of the groin or lower abdomen. EXTREMITIES: Normal range of motion, no clubbing or edema. Neurovascularly intact NEUROLOGICAL: Cranial nerves II through XII grossly intact. Moving all extremities SKIN: Warm, dry, no petechiae, no rashes or lesions. Initial Vital Signs Initial Vital Signs: Vital Signs Temperature 98.2 F 05/15/24 21:32 Pulse Rate 55 L 05/15/24 21:32 Respiratory Rate 16 05/15/24 21:32 Blood Pressure 182/88 H 05/15/24 21:32 Pulse Oximetry 97 05/15/24 21:32 Oxygen Delivery Method Room Air 05/15/24 21:32 Course Orders Ordered: ED Orders 05/15/24 21:43 Urinalysis and Microscopic Stat Urine Culture Stat 05/16/24 01:01 CT kidney ureter bladder (KUB) Stat 05/16/24 01:25 CBC Auto Diff [Complete Blood Count AUTO DIFF] Stat CMP [Comprehensive Metabolic Panel] Stat Discontinued Medications Ciprofloxacin (Ciprofloxacin 250 Mg Tablet) 500 mg PO NOW ONE Stop: 05/16/24 01:03 Last Admin: 05/16/24 01:16 Dose: 500 mg Documented By: ROBINSON Meloxicam (Meloxicam 7.5 Mg Tablet) 7.5 mg PO NOW ONE Stop: 05/16/24 02:39 Last Admin: 05/16/24 03:12 Dose: 7.5 mg Documented By: Potassium Chloride (Potassium Chloride 20 Meq Tab) 40 meq PO NOW ONE Stop: 05/16/24 02:26 Last Admin: 05/16/24 03:11 Dose: 40 meq Documented By: Vital Signs Vital signs: Vital Signs - 8 hr 05/15/24 23:35 05/15/24 23:37 05/15/24 23:37 Pulse Rate 47 L 59 L Blood Pressure 185/87 H Pulse Oximetry 97 Oxygen Delivery Method Room Air 05/16/24 00:00 05/16/24 00:00 05/16/24 00:30 Pulse Rate 60 61 Blood Pressure 175/84 H Pulse Oximetry 95 94 Oxygen Delivery Method Room Air 05/16/24 00:30 05/16/24 01:00 05/16/24 01:00 Pulse Rate 63 Blood Pressure 159/85 H 181/89 H Pulse Oximetry 97 Oxygen Delivery Method 05/16/24 01:33 05/16/24 01:34 05/16/24 01:34 Pulse Rate 59 L 60 Blood Pressure 167/82 H Pulse Oximetry 97 97 Oxygen Delivery Method Room Air 05/16/24 02:00 05/16/24 02:00 05/16/24 02:30 Pulse Rate 56 L Blood Pressure 155/85 H 163/80 H Pulse Oximetry 97 Oxygen Delivery Method 05/16/24 02:30 05/16/24 03:00 05/16/24 03:00 Pulse Rate 58 L 59 L Blood Pressure 180/84 H Pulse Oximetry 96 97 Oxygen Delivery Method Room Air MDM - Male Genitourinary Lab Data 05/16/24 01:25 05/16/24 01:25 Labs: Lab Results 05/15/24 05/16/24 Range/Units 21:43 01:25 WBC 8.4 (4.5-11.0) X10^3/uL RBC 5.02 (4.5-5.9) X10^6/uL Hgb 14.9 (13.5-17.5) g/dL Hct 42.8 (41-53) % MCV 85.2 (80-100) fL MCH 29.6 (26-34) PG MCHC 34.8 (30-36) % RDW 15.0 H (11.6-14.8) % Plt Count 217 (150-400) X10^3/uL Neut % (Auto) 83.8 H (50-75) % Lymph % (Auto) 8.6 L (25-40) % [place] % (Auto) 5.4 (3-14) % Eos % (Auto) 1.2 L (2-4) % Baso % (Auto) 1.0 (0-2) % Neut # (Auto) 7000 (9322-5203) /uL Lymph # (Auto) 700 L (5258-2045) /uL [place] # (Auto) 500 (0-900) /uL Eos # (Auto) 100 (0-450) /uL Baso # (Auto) 100 (0-100) /uL Sodium 137 (137-145) mmol/L Potassium 3.3 L (3.4-5.1) mmol/L Chloride 97 L (98-107) mmol/L Carbon Dioxide 24 (22-32) mmol/L BUN 21 H (9-20) mg/dL Creatinine 1.05 (0.66-1.25) mg/dL Estimated GFR > 60 (>60) mL/min BUN/Creatinine Ratio 20.0 (6-22) Glucose 123 H (80-110) mg/dL Calcium 10.2 (8.4-10.2) mg/dL Total Bilirubin 0.7 (0.2-1.3) mg/dL AST 25 (17-59) IU/L ALT 23 (<50) IU/L Alkaline Phosphatase 48 (38-126) U/L Total Protein 7.1 (6.3-8.2) g/dL Albumin 4.6 (3.5-5.0) g/dL Globulin 2.5 (1.7-4.1) g/dL Albumin/Globulin Ratio 1.8 (1.0-2.8) Urine Color Yellow Urine Appearance Sl cloudy Urine pH 6.0 (4.5-8.0) Ur Specific [place] 1.025 (1.000-1.035) Urine Protein 3+ H (Negative) Urine Glucose (UA) Negative (Negative) g/dL Urine Ketones 1+ H (NEGATIVE) Urine Occult Blood 3+ H (Negative) Urine Nitrate Positive H (Negative) Urine Bilirubin Negative (NEGATIVE) Urine Urobilinogen 0.2 (0.2) E.U./dL Ur Leukocyte Esterase 1+ H (NEGATIVE) Urine RBC 1-5/hpf D (0-5/HPF) Urine WBC 10-30/hpf H (0-5/HPF) Ur Squamous Epith Cells 0-1 /hpf D (0-5/HPF) Urine Bacteria Many (>30) H (None) Ur Culture Indicated? Specimen cultured Vol Urine Centrifuged 10ml (spun) MDM Narrative Medical decision making narrative: Urine shows 3+ protein 1+ ketones 3+ blood positive for nitrates, 1+ leuks 10-30 WBCs many bacteria. Labs show normal white count hemoglobin of 14.9 platelets of 217. Chemistry show a potassium of 3.3 was replaced orally chloride 97 BUN 21 creatinine is 1.05 with a glucose of 123. CT KUB shows mild right hydroureteronephrosis with the associated perinephric stranding. Real stranding mild perivascular stranding and stranding surrounding suprapubic catheter could be representing infectious uropathy no obstructing renal or ureteral stone or mass lesion. Possible tiny punctate gallstone without evidence acute cholecystitis colonic diverticulosis without acute diverticulitis. 69-year-old male noted a little bit of bleeding from his suprapubic catheter urine does appear infected he was has a little bit of right lower abdominal pain with it rupture and a little bit towards his back he states it was pretty intense it is improved currently he overall is well-appearing suspect he may have an infection that is causing some of the irritation and bleeding he has not had any trauma or injury to the catheter it has not been pulled or gait. He has not had bleeding from around the site any time recently. There was no active bleeding. To since CT KUB as he was having some pain on his side and flank to evaluate for stone as he does have infected urine. Imaging shows infection but no obvious obstructive process creatinine is normal potassium was slightly low and replaced. We will start on oral antibiotics with plan for short term follow up with Urology. Discharge Plan Departure Patient Disposition: Home Clinical Impression: Pyelonephritis Instructions: DI for Kidney Infection Activity Restrictions/Additional Instructions: Call this morning to set up follow up with your urology team. Your imaging does show some stranding and changes consistent with infection in the bladder and kidney, your urine also showed changes consistent with infection. Take antibiotics until completed. Prescription sent to [facility] in [place]. Please return for fevers rapidly worsening pain, vomiting, new or worsening bleeding around your suprapubic catheter or any large clots or obstruction of your catheter without any urine draining or other new or concerning changes. Prescriptions: New ciprofloxacin HCl 500 mg tablet 500 mg PO Q12H Qty: 20 0RF meloxicam 7.5 mg tablet 7.5 mg PO DAILY PRN (Reason: pain) Qty: 5 0RF No Action potassium chloride 20 mEq tablet extended release 20 meq PO BID lisinopril 40 mg tablet 40 mg PO DAILY hydrochlorothiazide 25 mg tablet 25 mg PO DAILY amlodipine 10 mg tablet 10 mg PO DAILY metformin 1,000 mg tablet 1,000 mg PO BID allopurinol 100 mg tablet 100 mg PO DAILY rosuvastatin PO benzonatate 100 mg capsule 100 mg PO TID PRN (Reason: cough) Qty: 14 0RF albuterol sulfate 90 mcg/actuation HFA aerosol inhaler 2 puff inhalation Q4-6H PRN (Reason: shortness of breath or wheezing) Qty: 8.5 0RF ciprofloxacin HCl [Cipro] 500 mg tablet 500 mg PO BID Qty: 14 0RF Referrals: Miscellaneous,Doctor, MD [Primary Care Provider] - Stand Alone Forms: Patient Portal/API/Survey
--- NOTE | 2024-05-16 01:01 | DI.CT.S_ITS ---
PROCEDURE: CT KIDNEY URETER BLADDER (KUB) INDICATIONS: right groin/abd pain, small amt blood around suprapubic cath TECHNIQUE: Axial sections were acquired from the lung bases to the pubic symphysis. Coronal and sagittal reformats were performed. For radiation dose reduction, the following was used: automated exposure control, adjustment of mA and/or kV according to patient size. COMPARISON: None. FINDINGS: Image quality: Diagnostic. Lower Chest: Heart size is normal. Multivessel atherosclerotic calcifications of the coronary arteries. No pericardial effusion. Small hiatal hernia. ABDOMEN: Liver: No contour-deforming mass. Gallbladder: Possible tiny punctate gallstone. No CT evidence for acute cholecystitis. Biliary ducts: No biliary dilation. Pancreas: No ductal dilation. Spleen: Size is within normal limits. Adrenal Glands: No adrenal nodules. URINARY: Right Kidney/Ureter: Mild right hydroureteronephrosis with moderate right periureteral stranding. Mild perinephric stranding. No radiopaque renal stones or ureteral stones. Left Kidney/Ureter: No stones or hydronephrosis. No hydroureter. No perinephric or periureteral stranding. Multiple hypodense lesions in the left kidney, some exophytic and some partially exophytic. These are incompletely characterized with lack of intravenous contrast but likely represent cysts. Bladder: Urinary bladder is decompressed by a suprapubic catheter. There is mild stranding surrounding the course of the catheter as well as mild perivesicular stranding. Stomach and Bowel: Normal colonic caliber, without significant wall thickening. Scattered colonic diverticula without acute inflammation. The appendix is not definitively visualized. However, no secondary findings of acute inflammation are noted in the right lower quadrant. No evidence for small bowel obstruction or associated inflammatory changes. Peritoneum: No abnormal intraperitoneal fluid. No free air. Ventral Wall: No significant hernia. Abdominal Nodes: No enlarged retroperitoneal or mesenteric lymph nodes. Vessels: Aorta and inferior vena cava are normal in size. Atherosclerosis. PELVIS: Pelvic Organs: Unremarkable. Pelvic Nodes: Unremarkable. Miscellaneous: No inguinal hernias are seen. Bones: Unremarkable. No acute vertebral body compression fractures. Multilevel spondylitic changes throughout the imaged spine. No suspicious osseous lesions. IMPRESSION: Mild right hydroureteronephrosis with associated perinephric and periureteral stranding. Additionally, there is mild perivesicular stranding and stranding surrounding the suprapubic catheter. Findings may represent infectious uropathy. Recommend clinical and laboratory correlation. No obstructing renal/ureteral stone or mass lesion. Possible tiny punctate gallstone without evidence for acute cholecystitis. Colonic diverticulosis without acute diverticulitis. Other chronic findings as above. Dictated by: Gary Guadalupe M.D. on 05/16/2024 at 1:22 Approved by: Gary Guadalupe M.D. on 05/16/2024 at 1:30
[2024-05-16] MEDS: CIPROFLOXACIN 250 MG TABLET 500 MG PO (01:16)
[2024-05-16 01:40] LABS: Add Manual Diff / Slide Review NO; Basophils Absolute Auto 100 /uL (0-100); Eosinophils Absolute Auto 100 /uL (0-450); Eosinophils Percent Auto 1.2 % (2-4); Hematocrit 42.8 % (41-53); Hemoglobin 14.9 g/dL (13.5-17.5); Lymphocytes Absolute Auto 700 /uL (1100-4500); Lymphocytes Percent Auto 8.6 % (25-40); Mean Corpuscular HGB Conc 34.8 % (30-36); Mean Corpuscular Hemoglobin 29.6 PG (26-34); Mean Corpuscular Volume 85.2 fL (80-100); Monocytes Absolute Auto 500 /uL (0-900); Monocytes Percent Auto 5.4 % (3-14); Neutrophils Absolute Auto 7000 /uL (1500-7000); Neutrophils Percent Auto 83.8 % (50-75); Platelet Count 217 X10^3/uL (150-400); Red Blood Cell Count 5.02 X10^6/uL (4.5-5.9); White Blood Cell Count 8.4 X10^3/uL (4.5-11.0)
[2024-05-16 01:53] LABS: Alanine Aminotransferase 23 IU/L (<50); Albumin 4.6 g/dL (3.5-5.0); Albumin Globulin Ratio 1.8 (1.0-2.8); Alkaline Phosphatase 48 U/L (38-126); Aspartate Aminotransferase 25 IU/L (17-59); Bilirubin Total 0.7 mg/dL (0.2-1.3); Blood Urea Nitrogen 21 mg/dL (9-20); Calcium 10.2 mg/dL (8.4-10.2); Carbon Dioxide 24 mmol/L (22-32); Chloride 97 mmol/L (98-107); Estimated Glomerular Filt Rate > 60 mL/min (>60); Globulin 2.5 g/dL (1.7-4.1); Glucose 123 mg/dL (80-110); HEMOLYSIS < 15 (0-50); Potassium 3.3 mmol/L (3.4-5.1); Sodium 137 mmol/L (137-145); Total Protein 7.1 g/dL (6.3-8.2)
[2024-05-16] MEDS: POTASSIUM CHLORIDE 20 MEQ TAB 40 MEQ PO (03:11)
[2024-05-16] MEDS: MELOXICAM 7.5 MG TABLET PO (03:12)
== END 2024-05-16 03:22 | disposition home or self-care (01) ==
PROVIDERS: Emergency Provider Emergency Medicine
DX: N13.6 Pyonephrosis (principal); Z96.0 Presence of urogenital implants
CPT/HCPCS: 36415; 74176; 80053; 81001; 85025; 87077; 87086; 87186; 99283; 99284

== ENCOUNTER 2024-06-02 15:54 | Emergency (ER) | payer MEDICARE, BC, SELFPAY ==
[2024-06-02 15:59] VITALS: BP 153/82; PULSE 84; RESP 18; TEMP 37.6; O2SAT 96; BMI 29.0
[2024-06-02 16:47] LABS: Strep Grp A by PCR Rapid Negative (Negative)
--- NOTE | 2024-06-02 18:14 | ED.URI ---
HPI - URI/Sore Throat <Laila Shearer PA-C - Last Filed: 06/02/24 19:21> General Chief Complaint: Upper Respiratory Symptoms Stated Complaint: covid+, throat is constricting Time Seen by Provider: 06/02/24 18:14 History of Present Illness HPI Narrative: Mr. Guo is a pleasant 69-year-old male with a past medical history of hypertension, radical prostatectomy in 2019 with suprapubic catheter and subsequent pulmonary embolism no longer on AC who presents to the emergency department for difficulty swallowing and throat pain x 4 days. Patient reports on Thursday he started having a sore throat and fevers and took a home COVID test that was positive on Thursday. Was in the hospital for a family member who also had COVID and suspects he got it from the hospital. Reports that his sore throat has been progressively getting worse and he is now having trouble swallowing because of the severity of the pain and he has not sleeping. Describes the pain as in the front of his neck with swallowing and he is able to tolerate secretions and fluids however it hurts to drink so he feels like he is dehydrated. Reports even breathing hurts the throat. States that he took a dose of meloxicam last night which did help temporarily. He denies chest pain, shortness of breath, abdominal pain, nausea, vomiting, facial redness or swelling. Reports that he was treated with antibiotics for pyelonephritis on 05/16/2024 and was feeling much better after. Related Data Home Medications Medication Instructions Recorded Confirmed allopurinol 100 mg tablet 100 mg PO DAILY 12/29/22 12/29/22 amlodipine 10 mg tablet 10 mg PO DAILY 12/29/22 12/29/22 hydrochlorothiazide 25 mg tablet 25 mg PO DAILY 12/29/22 12/29/22 lisinopril 40 mg tablet 40 mg PO DAILY 12/29/22 12/29/22 metformin 1,000 mg tablet 1,000 mg PO BID 12/29/22 12/29/22 potassium chloride 20 mEq 20 meq PO BID 12/29/22 12/29/22 tablet,extended release rosuvastatin PO 12/29/22 12/29/22 Previous Rx's Medication Instructions Recorded albuterol sulfate 90 mcg/actuation 2 puff inhalation Q4-6H PRN 02/26/22 aerosol inhaler shortness of breath or wheezing #8.5 grams benzonatate 100 mg capsule 100 mg PO TID PRN cough #14 caps 02/26/22 ciprofloxacin HCl 500 mg tablet 500 mg PO BID #14 tabs 01/28/24 (Cipro) ciprofloxacin HCl 500 mg tablet 500 mg PO Q12H #20 tabs 05/16/24 meloxicam 7.5 mg tablet 7.5 mg PO DAILY PRN pain #5 tabs 05/16/24 methylprednisolone 4 mg tablets in See Rx Instructions PO .COMPLEX 06/02/24 a dose pack (Medrol (Ravinder)) #21 ea Allergies Allergy/AdvReac Type Severity Reaction Status Date / Time sulfamethoxazole AdvReac Mild Rash Verified 05/15/24 21:32 [From Bactrim] trimethoprim [From Bactrim] AdvReac Mild Rash Verified 05/15/24 21:32 Penicillins AdvReac Rash Verified 05/15/24 21:32 Sulfa (Sulfonamide AdvReac Rash Verified 05/15/24 21:32 Antibiotics) Review of Systems <Laila Shearer PA-C - Last Filed: 06/02/24 19:21> Review of Systems ROS Unobtainable: All systems reviewed & are unremarkable except as noted in HPI and below Patient History <Laila Shearer PA-C - Last Filed: 06/02/24 19:21> Medical History Hypertension Prostate cancer alcohol intake frequency: a few times a month Exam <Laila Shearer PA-C - Last Filed: 06/02/24 19:21> Narrative Exam Narrative: GENERAL: 69 year old patient appears stated age. Well-developed patient, in no acute distress. HEAD: Atraumatic. Normocephalic. EYES: Extraocular motions intact. No scleral icterus. No injection or drainage. ENT: Right cerumen impaction, left canal clear with normal TM. Nose without bleeding, purulent drainage. Throat with erythema of the posterior oropharynx and uvula, no swelling or visible abscess. Tonsils have been surgically removed. Floor of the mouth and submandibular region are soft. NECK: Trachea midline. Cervical ROM intact. No palpable masses overlying the anterior neck. No erythema or edema of the neck. No stridor. CARDIOVASCULAR: Regular rate and rhythm. RESPIRATORY: ?Nonlabored respirations. ?Speaking in clear, full sentences. ?Clear to auscultation. Breath sounds equal bilaterally. No wheezes, rales, or rhonchi. ? GASTROINTESTINAL: Abdomen soft, non-tender, nondistended. Suprapubic catheter site without surrounding erythema or infection. EXTREMITIES: No edema or joint tenderness. No tenderness to palpation of bilateral calves. NEURO: AOx3. ?Clear speech. ?Moves all 4 extremities appropriately. SKIN: No rash or erythema of visible areas Initial Vital Signs Initial Vital Signs: Vital Signs Temperature 99.6 F 06/02/24 15:59 Pulse Rate 84 06/02/24 15:59 Respiratory Rate 18 06/02/24 15:59 Blood Pressure 153/82 H 06/02/24 15:59 Pulse Oximetry 96 06/02/24 15:59 Oxygen Delivery Method Room Air 06/02/24 15:59 <Armen Anglin DO - Last Filed: 06/02/24 22:38> Initial Vital Signs Initial Vital Signs: Vital Signs Temperature 99.6 F 06/02/24 15:59 Pulse Rate 84 06/02/24 15:59 Respiratory Rate 18 06/02/24 15:59 Blood Pressure 153/82 H 06/02/24 15:59 Pulse Oximetry 96 06/02/24 15:59 Oxygen Delivery Method Room Air 06/02/24 15:59 Course <Laila Shearer PA-C - Last Filed: 06/02/24 19:21> Orders Ordered: ED Orders 06/02/24 16:00 Strep Grp A by PCR Rapid Stat 06/02/24 18:28 CT soft tissue neck w con Stat XR chest 1V Stat 06/02/24 18:55 CBC Auto Diff [Complete Blood Count AUTO DIFF] Stat CMP [Comprehensive Metabolic Panel] Stat Discontinued Medications Acetaminophen (Acetaminophen 325 Mg Tablet) 650 mg PO NOW ONE Stop: 06/02/24 18:29 Last Admin: 06/02/24 18:54 Dose: 650 mg Documented By: XIAO Dexamethasone (Dexamethasone 10 Mg/Ml Vial) 10 mg IV NOW ONE Stop: 06/02/24 18:29 Last Admin: 06/02/24 18:55 Dose: 10 mg Documented By: XIAO Sodium Chloride (Normal Saline 0.9%) 1,000 mls @ 1,000 mls/hr IV BOLUS ONE Stop: 06/02/24 19:27 Last Infusion: 06/02/24 20:33 Dose: Infused Documented By: Admin: 06/02/24 19:23 Dose: 1,000 mls/hr Documented By: ROSIE Ketorolac Tromethamine (Ketorolac 30 Mg/Ml Vial) 15 mg IV NOW ONE Stop: 06/02/24 18:29 Last Admin: 06/02/24 18:54 Dose: 15 mg Documented By: XIAO Vital Signs Vital signs: Vital Signs - 8 hr 06/02/24 15:59 06/02/24 20:03 Temperature 99.6 F Pulse Rate 84 65 Respiratory Rate 18 14 Blood Pressure 153/82 H 128/69 Pulse Oximetry 96 99 Oxygen Delivery Method Room Air Room Air <Armen Anglin DO - Last Filed: 06/02/24 22:38> Orders Ordered: ED Orders 06/02/24 16:00 Strep Grp A by PCR Rapid Stat 06/02/24 18:28 CT soft tissue neck w con Stat XR chest 1V Stat 06/02/24 18:55 CBC Auto Diff [Complete Blood Count AUTO DIFF] Stat CMP [Comprehensive Metabolic Panel] Stat Discontinued Medications Acetaminophen (Acetaminophen 325 Mg Tablet) 650 mg PO NOW ONE Stop: 06/02/24 18:29 Last Admin: 06/02/24 18:54 Dose: 650 mg Documented By: XIAO Dexamethasone (Dexamethasone 10 Mg/Ml Vial) 10 mg IV NOW ONE Stop: 06/02/24 18:29 Last Admin: 06/02/24 18:55 Dose: 10 mg Documented By: XIAO Sodium Chloride (Normal Saline 0.9%) 1,000 mls @ 1,000 mls/hr IV BOLUS ONE Stop: 06/02/24 19:27 Last Infusion: 06/02/24 20:33 Dose: Infused Documented By: Admin: 06/02/24 19:23 Dose: 1,000 mls/hr Documented By: ROSIE Ketorolac Tromethamine (Ketorolac 30 Mg/Ml Vial) 15 mg IV NOW ONE Stop: 06/02/24 18:29 Last Admin: 06/02/24 18:54 Dose: 15 mg Documented By: XIAO Vital Signs Vital signs: Vital Signs - 8 hr 06/02/24 15:59 06/02/24 20:03 Temperature 99.6 F Pulse Rate 84 65 Respiratory Rate 18 14 Blood Pressure 153/82 H 128/69 Pulse Oximetry 96 99 Oxygen Delivery Method Room Air Room Air MDM - URI/Sore Throat <Laila Shearer PA-C - Last Filed: 06/02/24 19:21> Medical Records Attestation: I reviewed the patient's medical records. Medical records narrative: ED visit on 05/16/2024, diagnosed with pyelonephritis and treated with ciprofloxacin. Lab Data 06/02/24 18:55 06/02/24 18:55 Labs: Lab Results 06/02/24 06/02/24 Range/Units 16:00 18:55 WBC 8.7 (4.5-11.0) X10^3/uL RBC 4.93 (4.5-5.9) X10^6/uL Hgb 14.9 (13.5-17.5) g/dL Hct 41.9 (41-53) % MCV 85.0 (80-100) fL MCH 30.1 (26-34) PG MCHC 35.5 (30-36) % RDW 14.7 (11.6-14.8) % Plt Count 215 (150-400) X10^3/uL Neut % (Auto) 86.1 H (50-75) % Lymph % (Auto) 5.4 L (25-40) % [place] % (Auto) 7.8 (3-14) % Eos % (Auto) 0.3 L (2-4) % Baso % (Auto) 0.4 (0-2) % Neut # (Auto) 7500 H (6040-5529) /uL Lymph # (Auto) 500 L (6834-3366) /uL [place] # (Auto) 700 (0-900) /uL Eos # (Auto) 0 (0-450) /uL Baso # (Auto) 0 (0-100) /uL Sodium 135 L (137-145) mmol/L Potassium 3.6 (3.4-5.1) mmol/L Chloride 95 L (98-107) mmol/L Carbon Dioxide 20 L (22-32) mmol/L BUN 18 (9-20) mg/dL Creatinine 1.04 (0.66-1.25) mg/dL Estimated GFR > 60 (>60) mL/min BUN/Creatinine Ratio 17.3 (6-22) Glucose 117 H (80-110) mg/dL Calcium 9.8 (8.4-10.2) mg/dL Total Bilirubin 0.9 (0.2-1.3) mg/dL AST 27 (17-59) IU/L ALT 19 (<50) IU/L Alkaline Phosphatase 46 (38-126) U/L Total Protein 6.8 (6.3-8.2) g/dL Albumin 4.4 (3.5-5.0) g/dL Globulin 2.4 (1.7-4.1) g/dL Albumin/Globulin Ratio 1.8 (1.0-2.8) Group A Strep (PCR) Negative (Negative) MDM Narrative Medical decision making narrative: 69-year-old male with a past medical history of hypertension, radical prostatectomy in 2019 with suprapubic catheter and subsequent pulmonary embolism no longer on AC who presents to the emergency department for difficulty swallowing and throat pain x 4 days. Differential diagnosis includes but is not limited to retropharyngeal abscess, vallecula abscess, viral pharyngitis, strep pharyngitis, laryngitis, pneumonia, etc. On exam patient is in no acute distress, nontoxic appearing, vital signs appropriate except for mildly elevated blood pressure, temperature 99.6? and O2 saturation 96% on room air, he is not tachycardic. Physical exam reveals a mildly erythematous posterior oropharynx, surgical absence of tonsils, no obvious explanation for patient's difficulty swallowing. Patient is able to tolerate his secretions but is visibly having a hard time swallowing secondary to the pain. We will check CT soft tissue neck to rule out deep abscess, will treat with Decadron, Toradol and fluids. We will also check chest x-ray given cough and COVID infection. No difficulty breathing. Due to shift change, case was discussed with nighttime attending physician Dr. Ojeda who will follow labs, imaging. Patient is stable at this time. <Aremn Anglin, DO - Last Filed: 06/02/24 22:38> Lab Data Labs: Lab Results 06/02/24 06/02/24 Range/Units 16:00 18:55 WBC 8.7 (4.5-11.0) X10^3/uL RBC 4.93 (4.5-5.9) X10^6/uL Hgb 14.9 (13.5-17.5) g/dL Hct 41.9 (41-53) % MCV 85.0 (80-100) fL MCH 30.1 (26-34) PG MCHC 35.5 (30-36) % RDW 14.7 (11.6-14.8) % Plt Count 215 (150-400) X10^3/uL Neut % (Auto) 86.1 H (50-75) % Lymph % (Auto) 5.4 L (25-40) % [place] % (Auto) 7.8 (3-14) % Eos % (Auto) 0.3 L (2-4) % Baso % (Auto) 0.4 (0-2) % Neut # (Auto) 7500 H (0868-0329) /uL Lymph # (Auto) 500 L (4801-3712) /uL [place] # (Auto) 700 (0-900) /uL Eos # (Auto) 0 (0-450) /uL Baso # (Auto) 0 (0-100) /uL Sodium 135 L (137-145) mmol/L Potassium 3.6 (3.4-5.1) mmol/L Chloride 95 L (98-107) mmol/L Carbon Dioxide 20 L (22-32) mmol/L BUN 18 (9-20) mg/dL Creatinine 1.04 (0.66-1.25) mg/dL Estimated GFR > 60 (>60) mL/min BUN/Creatinine Ratio 17.3 (6-22) Glucose 117 H (80-110) mg/dL Calcium 9.8 (8.4-10.2) mg/dL Total Bilirubin 0.9 (0.2-1.3) mg/dL AST 27 (17-59) IU/L ALT 19 (<50) IU/L Alkaline Phosphatase 46 (38-126) U/L Total Protein 6.8 (6.3-8.2) g/dL Albumin 4.4 (3.5-5.0) g/dL Globulin 2.4 (1.7-4.1) g/dL Albumin/Globulin Ratio 1.8 (1.0-2.8) Group A Strep (PCR) Negative (Negative) Imaging Data Chest x-ray: Radiologist's Impression: [address] [address] XRay Report Signed Patient: Brayden Guo MR#: [id number] : 1955 Acct:[id number] Age/Sex: 69 / M Date of Service: 06/02/24 Loc: ED Accession Number: [id number] Procedure: XR chest 1V Ordering Provider: Laila Shearer PA-C PROCEDURE: XR CHEST 1V INDICATIONS: covid; cough; trouble swallowing TECHNIQUE: One view of the chest was acquired. COMPARISON: [facility], , XR CHEST 1V, 02/26/2022, 17:55. FINDINGS: Surgical changes and devices: None. Lungs and pleura: Similar linear opacity in the right mid lung zone favored to represent atelectasis versus scarring. No pleural effusions or pneumothorax. Mediastinum: Mediastinal contours appear normal. Heart size is normal. Bones and chest wall: No suspicious bony lesions. Overlying soft tissues appear unremarkable. IMPRESSION: Compared to prior radiograph 02/26/2022, similar plate like opacity in the right mid lung zone favored to represent atelectasis versus scarring. No focal dense airspace consolidation. CT soft tissue neck: Radiologist's Impression: [place] [address] CT Scan Report Signed Patient: Brayden Guo MR#: [id number] : 1955 Acct:[id number] Age/Sex: 69 / M Date of Service: 06/02/24 Loc: ED Accession Number: [id number] Procedure: CT soft tissue neck w con Ordering Provider: Laila Shearer PA-C PROCEDURE: CT SOFT TISSUE NECK W CON INDICATIONS: trouble swallowing; throat pain; covid TECHNIQUE: After the administration of intravenous contrast, 3.0 mm axial sections acquired from the sella to the aortic arch. Additional oblique axial 3.0 mm sections acquired through the pharynx. 3 mm thick coronal and sagittal reformats were generated. For radiation dose reduction, the following was used: automated exposure control. COMPARISON: None. FINDINGS: Image quality: Diagnostic. Lymph nodes: No enlarged lymph nodes seen throughout the neck. Vessels: Visualized vasculature appears patent. Neck spaces: The oropharynx, nasopharynx, and pharynx demonstrate no mucosal lesions. The vocal cords, false vocal cords, pyriform sinuses, epiglottis, vallecula, and tongue base all appear normal. Extramucosal spaces appear unremarkable. Glands: The parotid and submandibular glands appear normal. Thyroid gland is unremarkable. Miscellaneous: Visualized brain and orbits appear normal. Lung apices appear clear. Superficial soft tissues appear normal. Bones: No suspicious bony lesions. Visualized sinuses and mastoids appear unremarkable. Mild straightening of the normal cervical lordosis. C6-C7 mild degenerative changes. No acute vertebral body compression fracture. IMPRESSION: No acute process. MDM Narrative Medical decision making narrative: 69-year-old male with a past medical history of hypertension, radical prostatectomy in 2019 with suprapubic catheter and subsequent pulmonary embolism no longer on AC who presents to the emergency department for difficulty swallowing and throat pain x 4 days. Differential diagnosis includes but is not limited to retropharyngeal abscess, vallecula abscess, viral pharyngitis, strep pharyngitis, laryngitis, pneumonia, etc. On exam patient is in no acute distress, nontoxic appearing, vital signs appropriate except for mildly elevated blood pressure, temperature 99.6? and O2 saturation 96% on room air, he is not tachycardic. Physical exam reveals a mildly erythematous posterior oropharynx, surgical absence of tonsils, no obvious explanation for patient's difficulty swallowing. Patient is able to tolerate his secretions but is visibly having a hard time swallowing secondary to the pain. We will check CT soft tissue neck to rule out deep abscess, will treat with Decadron, Toradol and fluids. We will also check chest x-ray given cough and COVID infection. No difficulty breathing. Due to shift change, case was discussed with nighttime attending physician Dr. Ojeda who will follow labs, imaging. Patient is stable at this time. 2235: Patient was re-evaluated by me, patient states he had complete resolution of his symptoms here in the emergency department on exam patient is speaking full sentences no voice changes no stridor no trismus, posterior oropharynx is clear without any signs of obstruction, patient tolerating secretions, was able to pass p.o. challenge here in the emergency department, CT scan without any acute findings, chest x-ray at baseline, patient instructed to follow up with the primary care in outpatient setting verbalized understanding of this and agrees to being discharged home with outpatient follow up Discharge Plan Departure Patient Disposition: Home Clinical Impression: Acute viral pharyngitis Activity Restrictions/Additional Instructions: Please follow up with your Primary care doctor Prescriptions: New methylprednisolone [Medrol (Ravinder)] 4 mg tablets,dose pack See Rx Instructions .ROUTE .COMPLEX Qty: 21 0RF Rx Instructions: for 6 days No Action potassium chloride 20 mEq tablet extended release 20 meq PO BID lisinopril 40 mg tablet 40 mg PO DAILY hydrochlorothiazide 25 mg tablet 25 mg PO DAILY amlodipine 10 mg tablet 10 mg PO DAILY metformin 1,000 mg tablet 1,000 mg PO BID allopurinol 100 mg tablet 100 mg PO DAILY rosuvastatin PO ciprofloxacin HCl 500 mg tablet 500 mg PO Q12H Qty: 20 0RF meloxicam 7.5 mg tablet 7.5 mg PO DAILY PRN (Reason: pain) Qty: 5 0RF benzonatate 100 mg capsule 100 mg PO TID PRN (Reason: cough) Qty: 14 0RF albuterol sulfate 90 mcg/actuation HFA aerosol inhaler 2 puff inhalation Q4-6H PRN (Reason: shortness of breath or wheezing) Qty: 8.5 0RF ciprofloxacin HCl [Cipro] 500 mg tablet 500 mg PO BID Qty: 14 0RF Referrals: Miscellaneous,Doctor, MD [Primary Care Provider] - Stand Alone Forms: Patient Portal/API/Survey
--- NOTE | 2024-06-02 18:28 | DI.CT.S_ITS ---
PROCEDURE: CT SOFT TISSUE NECK W CON INDICATIONS: trouble swallowing; throat pain; covid TECHNIQUE: After the administration of intravenous contrast, 3.0 mm axial sections acquired from the sella to the aortic arch. Additional oblique axial 3.0 mm sections acquired through the pharynx. 3 mm thick coronal and sagittal reformats were generated. For radiation dose reduction, the following was used: automated exposure control. COMPARISON: None. FINDINGS: Image quality: Diagnostic. Lymph nodes: No enlarged lymph nodes seen throughout the neck. Vessels: Visualized vasculature appears patent. Neck spaces: The oropharynx, nasopharynx, and pharynx demonstrate no mucosal lesions. The vocal cords, false vocal cords, pyriform sinuses, epiglottis, vallecula, and tongue base all appear normal. Extramucosal spaces appear unremarkable. Glands: The parotid and submandibular glands appear normal. Thyroid gland is unremarkable. Miscellaneous: Visualized brain and orbits appear normal. Lung apices appear clear. Superficial soft tissues appear normal. Bones: No suspicious bony lesions. Visualized sinuses and mastoids appear unremarkable. Mild straightening of the normal cervical lordosis. C6-C7 mild degenerative changes. No acute vertebral body compression fracture. IMPRESSION: No acute process. Approved by: Rosemary Plascencia M.D.,Ph.D. on 06/02/2024 at 19:47
--- NOTE | 2024-06-02 18:28 | DI.RAD.S_ITS ---
PROCEDURE: XR CHEST 1V INDICATIONS: covid; cough; trouble swallowing TECHNIQUE: One view of the chest was acquired. COMPARISON: [facility], CR, XR CHEST 1V, 02/26/2022, 17:55. FINDINGS: Surgical changes and devices: None. Lungs and pleura: Similar linear opacity in the right mid lung zone favored to represent atelectasis versus scarring. No pleural effusions or pneumothorax. Mediastinum: Mediastinal contours appear normal. Heart size is normal. Bones and chest wall: No suspicious bony lesions. Overlying soft tissues appear unremarkable. IMPRESSION: Compared to prior radiograph 02/26/2022, similar plate like opacity in the right mid lung zone favored to represent atelectasis versus scarring. No focal dense airspace consolidation. Approved by: Rosemary Plascencia M.D.,Ph.D. on 06/02/2024 at 22:02
[2024-06-02] MEDS: KETOROLAC 30 MG/ML VIAL 15 MG IV (18:54)
[2024-06-02] MEDS: ACETAMINOPHEN 325 MG TABLET 650 MG PO (18:54)
[2024-06-02] MEDS: DEXAMETHASONE 10 MG/ML VIAL IV (18:55)
--- NOTE | 2024-06-02 19:11 | PC.NURSE ---
Difficulty swallowing. Voice clear and pt able to swallow own saliva. Respirations regular and unlabored.
--- NOTE | 2024-06-02 19:15 | PC.NURSE ---
Pt ambulatory to imaging with electrical controls technician.
[2024-06-02 19:17] LABS: Alanine Aminotransferase 19 IU/L (<50); Albumin 4.4 g/dL (3.5-5.0); Albumin Globulin Ratio 1.8 (1.0-2.8); Alkaline Phosphatase 46 U/L (38-126); Aspartate Aminotransferase 27 IU/L (17-59); BUN Creatinine Ratio 17.3 (6-22); Bilirubin Total 0.9 mg/dL (0.2-1.3); Blood Urea Nitrogen 18 mg/dL (9-20); Calcium 9.8 mg/dL (8.4-10.2); Carbon Dioxide 20 mmol/L (22-32); Chloride 95 mmol/L (98-107); Estimated Glomerular Filt Rate > 60 mL/min (>60); Globulin 2.4 g/dL (1.7-4.1); Glucose 117 mg/dL (80-110); HEMOLYSIS 22 (0-50); Potassium 3.6 mmol/L (3.4-5.1); Sodium 135 mmol/L (137-145); Total Protein 6.8 g/dL (6.3-8.2)
[2024-06-02 19:19] LABS: Add Manual Diff / Slide Review NO; Basophils Absolute Auto 0 /uL (0-100); Basophils Percent Auto 0.4 % (0-2); Eosinophils Absolute Auto 0 /uL (0-450); Eosinophils Percent Auto 0.3 % (2-4); Hematocrit 41.9 % (41-53); Hemoglobin 14.9 g/dL (13.5-17.5); Lymphocytes Absolute Auto 500 /uL (1100-4500); Lymphocytes Percent Auto 5.4 % (25-40); Mean Corpuscular HGB Conc 35.5 % (30-36); Mean Corpuscular Hemoglobin 30.1 PG (26-34); Monocytes Absolute Auto 700 /uL (0-900); Monocytes Percent Auto 7.8 % (3-14); Neutrophils Absolute Auto 7500 /uL (1500-7000); Neutrophils Percent Auto 86.1 % (50-75); Platelet Count 215 X10^3/uL (150-400); Red Blood Cell Count 4.93 X10^6/uL (4.5-5.9); Red Cell Distribution Width 14.7 % (11.6-14.8); White Blood Cell Count 8.7 X10^3/uL (4.5-11.0)
[2024-06-02] MEDS: SODIUM CHLORIDE 0.9% 1,000 ML 1000 ML IV (19:23)
[2024-06-02 20:03] VITALS: BP 128/69; PULSE 65; RESP 14; O2SAT 99
[2024-06-02 22:42] VITALS: BP 127/74; PULSE 74; RESP 14; O2SAT 98
== END 2024-06-02 22:42 | disposition home or self-care (01) ==
PROVIDERS: Emergency Medicine; Physician Assistant; Emergency Provider Student in an Organized Health Care Education/Training Program
DX: J02.8 Acute pharyngitis due to other specified organisms (principal); R13.10 Dysphagia, unspecified; Z86.16 Personal history of COVID-19
CPT/HCPCS: 36415; 70491; 71045; 80053; 85025; 87651; 96361; 96374; 96375; 99284; J1100; J1885; Q9967

== ENCOUNTER 2024-06-17 22:18 | Emergency (ER) | payer MEDICARE, BC, SELFPAY ==
[2024-06-17] VITALS (7 sets, daily range): BP systolic 133–175; BP diastolic 72–81; PULSE 67–82; RESP 21–22; TEMP 37.1; O2SAT 93–96; BMI 29.7
--- NOTE | 2024-06-17 22:39 | ED_ITS ---
HPI - Male Genitourinary General Chief complaint: Urogenital-Male Stated complaint: poss kidney infection Time Seen by Provider: 06/17/24 22:32 Source: patient Mode of arrival: Ambulatory History of Present Illness HPI Narrative: 69-year-old gentleman history of diabetes high blood pressure dyslipidemia radical prostatectomy in 2021 and suprapubic pubic catheter placement presents with left flank pain that started earlier today concern for kidney infection. Patient reports he was treated a few months ago here for right-sided kidney infection and feels similar in presentation today wanted to be evaluated. Patient denies fever, chills, body aches, abdominal pain, nausea, vomiting, diarrhea, constipation or hematuria. Other than what is stated 14 point review of system is negative Related Data Home Medications Medication Instructions Recorded Confirmed allopurinol 100 mg tablet 100 mg PO DAILY 12/29/22 12/29/22 amlodipine 10 mg tablet 10 mg PO DAILY 12/29/22 12/29/22 hydrochlorothiazide 25 mg tablet 25 mg PO DAILY 12/29/22 12/29/22 lisinopril 40 mg tablet 40 mg PO DAILY 12/29/22 12/29/22 metformin 1,000 mg tablet 1,000 mg PO BID 12/29/22 12/29/22 potassium chloride 20 mEq 20 meq PO BID 12/29/22 12/29/22 tablet,extended release rosuvastatin PO 12/29/22 12/29/22 Previous Rx's Medication Instructions Recorded albuterol sulfate 90 mcg/actuation 2 puff inhalation Q4-6H PRN 02/26/22 aerosol inhaler shortness of breath or wheezing #8.5 grams benzonatate 100 mg capsule 100 mg PO TID PRN cough #14 caps 02/26/22 ciprofloxacin HCl 500 mg tablet 500 mg PO BID #14 tabs 01/28/24 (Cipro) ciprofloxacin HCl 500 mg tablet 500 mg PO Q12H #20 tabs 05/16/24 meloxicam 7.5 mg tablet 7.5 mg PO DAILY PRN pain #5 tabs 05/16/24 methylprednisolone 4 mg tablets in See Rx Instructions PO .COMPLEX 06/02/24 a dose pack (Medrol (Ravinder)) #21 ea ciprofloxacin HCl 500 mg tablet 500 mg PO Q12H #20 tabs 06/18/24 (Cipro) Allergies Allergy/AdvReac Type Severity Reaction Status Date / Time sulfamethoxazole AdvReac Mild Rash Verified 05/15/24 21:32 [From Bactrim] trimethoprim [From Bactrim] AdvReac Mild Rash Verified 05/15/24 21:32 Penicillins AdvReac Rash Verified 05/15/24 21:32 Sulfa (Sulfonamide AdvReac Rash Verified 05/15/24 21:32 Antibiotics) Review of Systems Review of Systems ROS Unobtainable: All systems reviewed & are unremarkable except as noted in HPI and below Patient History Medical History Hypertension Prostate cancer alcohol intake frequency: a few times a month Exam Narrative Exam Narrative: GENERAL: [69] year old patient appears stated age. Well-developed patient, in mild distress. HEAD: Atraumatic. Normocephalic. EYES: Pupils equal round and reactive. Extraocular motions intact. No scleral icterus. No injection or drainage. ENT: Nose without bleeding, purulent drainage. Throat without erythema, tonsillar hypertrophy or exudate. Airway patent. NECK: Trachea midline. Non tender CARDIOVASCULAR: Regular rate and rhythm without murmurs, gallops, or rubs. RESPIRATORY: Clear to auscultation. Breath sounds equal bilaterally. No wheezes, rales, or rhonchi. GASTROINTESTINAL: Abdomen soft, non-tender, nondistended. EXTREMITIES: No edema or joint tenderness. BACK: Nontender without deformity or crepitance. L CVA TTP NEURO: AOx3. SKIN: No rash or erythema of visible areas Initial Vital Signs Initial Vital Signs: Vital Signs Temperature 98.7 F 06/17/24 22:20 Pulse Rate 74 06/17/24 22:20 Respiratory Rate 21 06/17/24 22:20 Blood Pressure 175/81 H 06/17/24 22:20 Pulse Oximetry 96 06/17/24 22:20 Oxygen Delivery Method Room Air 06/17/24 22:20 Course Orders Ordered: ED Orders 06/17/24 22:39 Complete Blood Count AUTO DIFF Stat Comprehensive Metabolic Panel Stat Lipase Stat 06/17/24 23:28 CT abdomen pelvis w con Stat 06/17/24 23:55 Ammonia (NH3) Stat 06/18/24 00:04 Urine Microscopic Stat Sodium Chloride (Normal Saline 0.9%) 1,000 mls @ 1,000 mls/hr IV BOLUS PRN PRN Reason: Fluid replacement Last Admin: 06/17/24 23:42 Dose: 1,000 mls/hr Documented By: MR Discontinued Medications Ketorolac Tromethamine (Ketorolac 30 Mg/Ml Vial) 30 mg IV NOW ONE Stop: 06/17/24 23:28 Last Admin: 06/17/24 23:42 Dose: 30 mg Documented By: Vital Signs Vital signs: Vital Signs - 8 hr 06/17/24 22:20 06/17/24 22:23 06/17/24 22:24 Temperature 98.7 F Pulse Rate 74 82 73 Respiratory Rate 21 Blood Pressure 175/81 H Pulse Oximetry 96 96 95 Oxygen Delivery Method Room Air 06/17/24 22:24 06/17/24 22:30 06/17/24 23:00 Temperature Pulse Rate 74 69 Respiratory Rate Blood Pressure 175/81 H Pulse Oximetry 96 93 Oxygen Delivery Method 06/17/24 23:30 06/17/24 23:53 06/17/24 23:53 Temperature Pulse Rate 72 67 Respiratory Rate 22 Blood Pressure 133/72 Pulse Oximetry 93 95 Oxygen Delivery Method 06/18/24 00:00 Temperature Pulse Rate 67 Respiratory Rate 21 Blood Pressure Pulse Oximetry 94 Oxygen Delivery Method MDM - Male Genitourinary Lab Data 06/17/24 22:39 06/17/24 22:39 Labs: Lab Results 06/17/24 06/17/24 Range/Units 22:39 23:55 WBC 9.7 (4.5-11.0) X10^3/uL RBC 4.74 (4.5-5.9) X10^6/uL Hgb 14.0 (13.5-17.5) g/dL Hct 40.7 L (41-53) % MCV 85.9 (80-100) fL MCH 29.5 (26-34) PG MCHC 34.3 (30-36) % RDW 14.2 (11.6-14.8) % Plt Count 216 (150-400) X10^3/uL Neut % (Auto) 85.7 H (50-75) % Lymph % (Auto) 5.8 L (25-40) % [place] % (Auto) 6.8 (3-14) % Eos % (Auto) 1.4 L (2-4) % Baso % (Auto) 0.3 (0-2) % Neut # (Auto) 8300 H (9347-5347) /uL Lymph # (Auto) 600 L (0302-6788) /uL [place] # (Auto) 700 (0-900) /uL Eos # (Auto) 100 (0-450) /uL Baso # (Auto) 0 (0-100) /uL Sodium 132 L (137-145) mmol/L Potassium 3.8 (3.4-5.1) mmol/L Chloride 95 L (98-107) mmol/L Carbon Dioxide 25 (22-32) mmol/L BUN 28 H (9-20) mg/dL Creatinine 1.00 (0.66-1.25) mg/dL Estimated GFR > 60 (>60) mL/min BUN/Creatinine Ratio 28.0 H (6-22) Glucose 130 H (70-99) mg/dL Calcium 9.7 (8.4-10.2) mg/dL Total Bilirubin 0.9 (0.2-1.3) mg/dL AST 22 (17-59) IU/L ALT 17 (<50) IU/L Alkaline Phosphatase 46 (38-126) U/L Ammonia < 9 L (9-30) umol/L Total Protein 6.5 (6.3-8.2) g/dL Albumin 4.3 (3.5-5.0) g/dL Globulin 2.2 (1.7-4.1) g/dL Albumin/Globulin Ratio 2.0 (1.0-2.8) Lipase 64 (23-300) U/L Imaging Data CT scan - abdomen/pelvis: Radiologist's Impression: [place] [address] CT Scan Report Signed Patient: Brayden Guo MR#: [id number] : 1955 Acct:[id number] Age/Sex: 69 / M Date of Service: 06/17/24 Loc: ED Accession Number: [id number] Procedure: CT abdomen pelvis w con Ordering Provider: Quirino Rodriguez D.O. PROCEDURE: CT ABDOMEN PELVIS W CON INDICATIONS: L flank pain/ suprapubic catheter TECHNIQUE: After the administration of intravenous contrast, axial sections acquired from the lung bases to the pubic symphysis. Coronal and sagittal reformats were performed. For radiation dose reduction, the following was used: automated exposure control, adjustment of mA and/or kV according to patient size. COMPARISON: None. FINDINGS: Image quality: Diagnostic. Lower Chest: Left basilar atelectasis. ABDOMEN: Liver: No solid mass. Gallbladder: Focal contraction of the gallbladder fundus. Biliary ducts: No biliary dilation. Pancreas: No ductal dilation. Spleen: Size is within normal limits. Adrenal Glands: Benign left adrenal myelolipoma measuring 1.1 cm. Kidneys and Ureters: Symmetric enhancement of the kidneys. There is left-sided urothelial wall thickening extending to the right renal pelvis. Asymmetric left-sided perinephric fat stranding. No cortical striation. Macro cysts Stomach and Bowel: Normal colonic caliber, without significant wall thickening. Colonic diverticulosis without evidence of diverticulitis. Peritoneum: No abnormal intraperitoneal fluid. No free air. Ventral Wall: No significant ventral hernia. Abdominal Nodes: No retroperitoneal or mesenteric adenopathy by size criteria. Vessels: Aorta and inferior vena cava are normal in size. PELVIS: Pelvic Organs: Unremarkable. Bladder: Suprapubic catheter. Diffuse bladder wall thickening. Perivesicular fat stranding. Pelvic Nodes: No enlarged lymph nodes. Miscellaneous: No inguinal hernias are seen. Bones: No aggressive osseous abnormality. IMPRESSION: Cystitis with diffuse bladder wall thickening and perivesicular fat stranding. Ascending urinary tract infection within the left ureter, with urothelial wall thickening extending to the left renal pelvis. Symmetric enhancement of the kidneys without cortical striation to suggest pyelonephritis at this time. Other chronic findings as above. Dictated by: Biju Woo M.D. on 06/18/2024 at 0:34 Approved by: Biju Woo M.D. on 06/18/2024 at 0:37 MDM Narrative Medical decision making narrative: All lab work CT scan vital signs nurse triage note medication list and all previous ER visits and imaging reviewed. Patient was given Rocephin 1 g IV here and will be discharged on Cipro prescription. Differential diagnosis includes UTI kidney stone kidney infection sepsis. Patient will follow up with PCP in 1- 2 weeks for follow up. Discharge Plan Departure Patient Disposition: Home Clinical Impression: Acute pyelonephritis Instructions: DI for Kidney Infection Activity Restrictions/Additional Instructions: Return with new or worsening symptoms. Take your medicines as directed. Follow up with your PCP in 1-2 weeks for re-evaluation. Prescriptions: New ciprofloxacin HCl [Cipro] 500 mg tablet 500 mg PO Q12H Qty: 20 0RF No Action potassium chloride 20 mEq tablet extended release 20 meq PO BID lisinopril 40 mg tablet 40 mg PO DAILY hydrochlorothiazide 25 mg tablet 25 mg PO DAILY amlodipine 10 mg tablet 10 mg PO DAILY metformin 1,000 mg tablet 1,000 mg PO BID allopurinol 100 mg tablet 100 mg PO DAILY rosuvastatin PO ciprofloxacin HCl 500 mg tablet 500 mg PO Q12H Qty: 20 0RF meloxicam 7.5 mg tablet 7.5 mg PO DAILY PRN (Reason: pain) Qty: 5 0RF methylprednisolone [Medrol (Ravinder)] 4 mg tablets,dose pack See Rx Instructions .ROUTE .COMPLEX Qty: 21 0RF Rx Instructions: for 6 days benzonatate 100 mg capsule 100 mg PO TID PRN (Reason: cough) Qty: 14 0RF albuterol sulfate 90 mcg/actuation HFA aerosol inhaler 2 puff inhalation Q4-6H PRN (Reason: shortness of breath or wheezing) Qty: 8.5 0RF ciprofloxacin HCl [Cipro] 500 mg tablet 500 mg PO BID Qty: 14 0RF Referrals: Miscellaneous,Doctor, MD [Primary Care Provider] - Stand Alone Forms: Patient Portal/API/Survey
--- NOTE | 2024-06-17 23:28 | DI.CT.S_ITS ---
PROCEDURE: CT ABDOMEN PELVIS W CON INDICATIONS: L flank pain/ suprapubic catheter TECHNIQUE: After the administration of intravenous contrast, axial sections acquired from the lung bases to the pubic symphysis. Coronal and sagittal reformats were performed. For radiation dose reduction, the following was used: automated exposure control, adjustment of mA and/or kV according to patient size. COMPARISON: None. FINDINGS: Image quality: Diagnostic. Lower Chest: Left basilar atelectasis. ABDOMEN: Liver: No solid mass. Gallbladder: Focal contraction of the gallbladder fundus. Biliary ducts: No biliary dilation. Pancreas: No ductal dilation. Spleen: Size is within normal limits. Adrenal Glands: Benign left adrenal myelolipoma measuring 1.1 cm. Kidneys and Ureters: Symmetric enhancement of the kidneys. There is left-sided urothelial wall thickening extending to the right renal pelvis. Asymmetric left-sided perinephric fat stranding. No cortical striation. Macro cysts Stomach and Bowel: Normal colonic caliber, without significant wall thickening. Colonic diverticulosis without evidence of diverticulitis. Peritoneum: No abnormal intraperitoneal fluid. No free air. Ventral Wall: No significant ventral hernia. Abdominal Nodes: No retroperitoneal or mesenteric adenopathy by size criteria. Vessels: Aorta and inferior vena cava are normal in size. PELVIS: Pelvic Organs: Unremarkable. Bladder: Suprapubic catheter. Diffuse bladder wall thickening. Perivesicular fat stranding. Pelvic Nodes: No enlarged lymph nodes. Miscellaneous: No inguinal hernias are seen. Bones: No aggressive osseous abnormality. IMPRESSION: Cystitis with diffuse bladder wall thickening and perivesicular fat stranding. Ascending urinary tract infection within the left ureter, with urothelial wall thickening extending to the left renal pelvis. Symmetric enhancement of the kidneys without cortical striation to suggest pyelonephritis at this time. Other chronic findings as above. Dictated by: Biju Woo M.D. on 06/18/2024 at 0:34 Approved by: Biju Woo M.D. on 06/18/2024 at 0:37
[2024-06-17] MEDS: KETOROLAC 30 MG/ML VIAL IV (23:42)
[2024-06-17] MEDS: SODIUM CHLORIDE 0.9% 1,000 ML 1000 ML IV (23:42)
[2024-06-17 23:46] LABS: Add Manual Diff / Slide Review NO; Basophils Absolute Auto 0 /uL (0-100); Basophils Percent Auto 0.3 % (0-2); Eosinophils Absolute Auto 100 /uL (0-450); Eosinophils Percent Auto 1.4 % (2-4); Hematocrit 40.7 % (41-53); Lymphocytes Absolute Auto 600 /uL (1100-4500); Lymphocytes Percent Auto 5.8 % (25-40); Mean Corpuscular HGB Conc 34.3 % (30-36); Mean Corpuscular Hemoglobin 29.5 PG (26-34); Mean Corpuscular Volume 85.9 fL (80-100); Monocytes Absolute Auto 700 /uL (0-900); Monocytes Percent Auto 6.8 % (3-14); Neutrophils Absolute Auto 8300 /uL (1500-7000); Neutrophils Percent Auto 85.7 % (50-75); Platelet Count 216 X10^3/uL (150-400); Red Blood Cell Count 4.74 X10^6/uL (4.5-5.9); Red Cell Distribution Width 14.2 % (11.6-14.8); White Blood Cell Count 9.7 X10^3/uL (4.5-11.0)
[2024-06-17 23:51] LABS: Alanine Aminotransferase 17 IU/L (<50); Albumin 4.3 g/dL (3.5-5.0); Alkaline Phosphatase 46 U/L (38-126); Aspartate Aminotransferase 22 IU/L (17-59); Bilirubin Total 0.9 mg/dL (0.2-1.3); Blood Urea Nitrogen 28 mg/dL (9-20); Calcium 9.7 mg/dL (8.4-10.2); Carbon Dioxide 25 mmol/L (22-32); Chloride 95 mmol/L (98-107); Estimated Glomerular Filt Rate > 60 mL/min (>60); Globulin 2.2 g/dL (1.7-4.1); Glucose 130 mg/dL (70-99); HEMOLYSIS 24 (0-50); Lipase 64 U/L (23-300); Potassium 3.8 mmol/L (3.4-5.1); Sodium 132 mmol/L (137-145); Total Protein 6.5 g/dL (6.3-8.2)
[2024-06-18] VITALS: PULSE 67; RESP 21; O2SAT 94
[2024-06-18 00:09] LABS: Ammonia (NH3) < 9 umol/L (9-30)
[2024-06-18] MEDS: cefTRIAXone 1,000 MG in SODIUM CHLORIDE 0.9% 100 ML 200 MG IV (01:14)
[2024-06-18 01:43] LABS: Appearance Urine UA CLEAR; Bilirubin Urine UA NEGATIVE (NEGATIVE); Color Urine UA YELLOW; Glucose Urine UA NEGATIVE (Negative); Ketones Urine UA 1+ (NEGATIVE); Leukocyte Esterase Urine UA NEGATIVE (NEGATIVE); Nitrite Urine UA POSITIVE (Negative); Occult Blood Urine UA 3+ (Negative); Protein Urine UA 2+ (Negative); Specific Gravity Urine UA >=1.030 (1.000-1.035); Urobilinogen Urine UA 0.2 E.U./dL (0.2)
[2024-06-18 01:44] VITALS: BP 131/72; PULSE 60; RESP 14; O2SAT 94
[2024-06-18 01:51] LABS: Bacteria Urine Moderate (10-30); RBC Urine 10-30/HPF (0-5/HPF); Urine Volume 10mL (spun); WBC Urine 10-30/HPF (0-5/HPF)
[2024-06-18 01:52] LABS: Culture Indicated Urine Specimen Cultured; Mucus Urine 1+ (Negative); Squamous Epithelial Cell Urine 0-1 /HPF (0-5/HPF)
== END 2024-06-18 01:45 | disposition home or self-care (01) ==
PROVIDERS: Emergency Provider Family Medicine
DX: N10 Acute pyelonephritis (principal)
CPT/HCPCS: 36415; 74177; 80053; 81001; 82140; 83690; 85025; 87077; 87086; 87186; 96361; 96365; 96375; 99284; J0696; J1885; Q9967

== ENCOUNTER → 2024-06-28 09:50 | Outpatient (CLI) | payer MEDICARE, BC, SELFPAY | LOC: WC 09:52 | PROVIDERS: Referring Provider Nurse Practitioner; Visit Provider Surgery | DX: N30.41 Irradiation cystitis with hematuria (principal); E11.628 Type 2 diabetes mellitus with other skin complications; I10 Essential (primary) hypertension | CPT/HCPCS: 99203; 99212 ==

== ENCOUNTER → 2024-08-04 13:06 | Outpatient (CLI) | payer MEDICARE, BC, SELFPAY | LOC: WC 13:10 | PROVIDERS: Visit Provider Surgery | DX: N30.41 Irradiation cystitis with hematuria (principal); Z85.46 Personal history of malignant neoplasm of prostate; E11.622 Type 2 diabetes mellitus with other skin ulcer; I10 Essential (primary) hypertension; Z86.711 Personal history of pulmonary embolism; Z87.891 Personal history of nicotine dependence | CPT/HCPCS: 99183; 99213; G0277 ==

== ENCOUNTER → 2024-08-05 11:18 | Outpatient (CLI) | payer MEDICARE, BC, SELFPAY | LOC: WC 11:23 | PROVIDERS: Visit Provider Physician Assistant | DX: N30.41 Irradiation cystitis with hematuria (principal) | CPT/HCPCS: 99183; G0277 ==

== ENCOUNTER → 2024-08-08 14:26 | Outpatient (CLI) | payer MEDICARE, BC, SELFPAY | LOC: WC 14:44 | PROVIDERS: Visit Provider Surgery | DX: N30.41 Irradiation cystitis with hematuria (principal) | CPT/HCPCS: 99183; G0277 ==

== ENCOUNTER → 2024-08-09 16:12 | Outpatient (CLI) | payer MEDICARE, BC, SELFPAY | LOC: WC 16:28 | PROVIDERS: Visit Provider Surgery | DX: N30.41 Irradiation cystitis with hematuria (principal) | CPT/HCPCS: 99183; G0277 ==

== ENCOUNTER → 2024-08-10 15:47 | Outpatient (CLI) | payer MEDICARE, BC, SELFPAY | LOC: WC 15:49 | PROVIDERS: Visit Provider Surgery | DX: N30.41 Irradiation cystitis with hematuria (principal) | CPT/HCPCS: 99183; G0277 ==

== ENCOUNTER → 2024-08-11 13:53 | Outpatient (CLI) | payer MEDICARE, BC, SELFPAY | PROVIDERS: Visit Provider Surgery | DX: N30.41 Irradiation cystitis with hematuria (principal) | CPT/HCPCS: 99183; G0277 ==

== ENCOUNTER → 2024-08-12 14:57 | Outpatient (CLI) | payer MEDICARE, BC, SELFPAY | LOC: WC 14:59 | PROVIDERS: Visit Provider Physician Assistant | DX: N30.41 Irradiation cystitis with hematuria (principal) | CPT/HCPCS: 99183; G0277 ==

== ENCOUNTER → 2024-08-17 11:23 | Outpatient (CLI) | payer MEDICARE, BC, SELFPAY | PROVIDERS: Visit Provider Surgery | DX: N30.41 Irradiation cystitis with hematuria (principal) | CPT/HCPCS: 99183; G0277 ==

== ENCOUNTER → 2024-08-18 10:18 | Outpatient (CLI) | payer MEDICARE, BC, SELFPAY | PROVIDERS: Visit Provider Surgery | DX: N30.41 Irradiation cystitis with hematuria (principal) | CPT/HCPCS: 99183; G0277 ==

== ENCOUNTER 2024-08-18 16:54 | Emergency (ER) | payer MEDICARE, BC, SELFPAY ==
[2024-08-18] VITALS (9 sets, daily range): BP systolic 140–193; BP diastolic 76–100; PULSE 59–96; RESP 18; TEMP 37.1; O2SAT 91–99; BMI 29.7
--- NOTE | 2024-08-18 18:08 | DI.CT.S_ITS ---
PROCEDURE: CT KIDNEY URETER BLADDER (KUB) INDICATIONS: flank pain TECHNIQUE: CT of the abdomen and pelvis was obtained without intravenous contrast. Coronal and sagittal reformats were performed. For radiation dose reduction, the following was used: automated exposure control, adjustment of mA and/or kV according to patient size. COMPARISON: [facility], CT, CT KIDNEY URETER BLADDER (KUB), 05/16/2024, 1:16. FINDINGS: Image quality: Diagnostic. Lower Chest: No significant findings. ABDOMEN: Liver: No contour-deforming mass. Gallbladder: No radiopaque gallstones or wall thickening. Biliary ducts: No biliary dilation. Pancreas: No ductal dilation. Spleen: Size is within normal limits. Adrenal Glands: Benign left adrenal myelolipoma measuring 1.3 centimeter, benign. Kidneys and Ureters: Mild right-sided ureterectasis and pelvocaliectasis, with periureteric fat stranding. Stomach and Bowel: Normal colonic caliber, without significant wall thickening. Colonic diverticulosis without evidence of diverticulitis. Peritoneum: No abnormal intraperitoneal fluid. No free air. Ventral Wall: No significant hernia. Abdominal Nodes: No retroperitoneal or mesenteric adenopathy by size criteria. Vessels: Aorta and inferior vena cava are normal in size. PELVIS: Pelvic Organs: Unremarkable. Bladder: Decompressed around a suprapubic catheter. Pelvic Nodes: No enlarged lymph nodes. Miscellaneous: Small indirect inguinal hernias containing fat. Bones: No aggressive osseous abnormality. IMPRESSION: There is right-sided ureterectasis and pelvocaliectasis, with right-sided periureteric fat stranding. Findings suggest ascending urinary tract infection. Bladder is decompressed around a Butler catheter. Dictated by: Biju Woo M.D. on 08/18/2024 at 18:50 Approved by: Biju Woo M.D. on 08/18/2024 at 18:53
[2024-08-18] MEDS: SODIUM CHLORIDE 0.9% 1,000 ML 1000 ML IV (18:13)
[2024-08-18] MEDS: ONDANSETRON 4 MG/2 ML INJ IV (18:13)
[2024-08-18] MEDS: HYDROMORPHONE 0.5 MG INJ IV (18:13)
[2024-08-18 18:19] LABS: Add Manual Diff / Slide Review NO; Basophils Absolute Auto 0 /uL (0-100); Basophils Percent Auto 0.5 % (0-2); Eosinophils Absolute Auto 200 /uL (0-450); Eosinophils Percent Auto 2.6 % (2-4); Hematocrit 37.9 % (41-53); Hemoglobin 12.7 g/dL (13.5-17.5); Lymphocytes Absolute Auto 700 /uL (1100-4500); Lymphocytes Percent Auto 8.8 % (25-40); Mean Corpuscular HGB Conc 33.6 % (30-36); Mean Corpuscular Volume 86.2 fL (80-100); Monocytes Absolute Auto 500 /uL (0-900); Neutrophils Absolute Auto 6200 /uL (1500-7000); Neutrophils Percent Auto 82.1 % (50-75); Platelet Count 238 X10^3/uL (150-400); Red Blood Cell Count 4.39 X10^6/uL (4.5-5.9); Red Cell Distribution Width 15.7 % (11.6-14.8); White Blood Cell Count 7.6 X10^3/uL (4.5-11.0)
[2024-08-18 18:26] LABS: Alanine Aminotransferase 18 IU/L (<50); Albumin 4.5 g/dL (3.5-5.0); Albumin Globulin Ratio 1.8 (1.0-2.8); Alkaline Phosphatase 55 U/L (38-126); Aspartate Aminotransferase 24 IU/L (17-59); Bilirubin Total 0.6 mg/dL (0.2-1.3); Blood Urea Nitrogen 19 mg/dL (9-20); Calcium 9.9 mg/dL (8.4-10.2); Carbon Dioxide 22 mmol/L (22-32); Chloride 106 mmol/L (98-107); Estimated Glomerular Filt Rate > 60 mL/min (>60); Globulin 2.5 g/dL (1.7-4.1); Glucose 126 mg/dL (70-99); HEMOLYSIS < 15 (0-50); Potassium 3.7 mmol/L (3.4-5.1); Sodium 139 mmol/L (137-145)
--- NOTE | 2024-08-18 18:42 | ED_ITS ---
HPI - General Adult General Chief complaint: Urogenital-Male Stated complaint: Rt Kidney Pain Time Seen by Provider: 08/18/24 17:07 Source: patient Mode of arrival: Ambulatory History of Present Illness HPI narrative: 69-year-old male with history of prostate cancer status post resection surgery 2019, subsequent problems with urinary incontinence, urethral stricture unable to pass trans urethral catheter, leading to suprapubic catheter placement at [facility] December 2023, still in place, plan was for catheter removal and urethroplasty but on repeat ureteroscopy there was complete occlusion, ongoing hyperbaric therapy through [facility], anticipating repeat ureteroscopy and hopefully treatment of the urethral stricture and removal of the suprapubic catheter. Suprapubic catheter changed out on Thursday. History of urinary tract infections. Most recent infection was May 2024, initially treated with ciprofloxacin but was resistant, changed to cephalosporin Keflex which was tolerated well. History of penicillin allergy noted, has taken cephalosporins. Complains of right-sided flank pain today, similar sensation to his previous kidney infections. Denies nausea or vomiting. No chills. No loose stools diarrhea. No black or red stools. No chest pain shortness of breath. Related Data Home Medications ?Medication ?Instructions ?Recorded ?Confirmed allopurinol 100 mg tablet 100 mg PO DAILY 12/29/2208/15 amlodipine 10 mg tablet 10 mg PO DAILY 12/29/2208/15 hydrochlorothiazide 25 mg tablet 25 mg PO DAILY 12/29/22 lisinopril 40 mg tablet 40 mg PO DAILY 12/29/2208/15 metformin 1,000 mg tablet 1,000 mg PO BID 12/29/2208/15 potassium chloride 20 mEq 20 meq PO BID 12/29/2212/29 tablet,extended release rosuvastatin PO 12/29/22 12/29/22 Previous Rx's ?Medication ?Instructions ?Recorded albuterol sulfate 90 mcg/actuation 2 puff inhalation Q 4-6H PRN 02/26/22 aerosol inhaler shortness of breath or wheez ing #8.5 grams benzonatate 100 mg capsule 100 mg PO TID PRN cough #14 caps 02/26/22 ciprofloxacin HCl 500 mg tablet 500 mg PO BID #14 tabs 01/28/24 (Cipro) ciprofloxacin HCl 500 mg tablet 500 mg PO Q12H #20 tab s 05/16/24 meloxicam 7.5 mg tablet 7.5 mg PO DAILY PRN pain #5 tabs 05/16/24 methylprednisolone 4 mg tablets in See Rx Instructions PO .COMPLEX 06/02/24 a dose pack (Medrol (Ravinder)) #21 ea ciprofloxacin HCl 500 mg tablet 500 mg PO Q12H #20 tab s 06/18/24 (Cipro) cefpodoxime 100 mg tablet 100 mg PO BID #10 tabs 06/21 cephalexin 500 mg capsule 500 mg PO BID #20 caps 06/21 cefdinir 300 mg capsule 300 mg PO BID 10 days #20 ca ps 08/18/24 Allergies Allergy/AdvReac Type Severity Reaction Status Date / Time sulfamethoxazole (From AdvReac Mild Rash Verified 08/18/24 17:00 Bactrim) trimethoprim (From Bactrim) AdvReac Mild Rash Verified 08/18/24 17:00 Penicillins AdvReac Rash Verified 08/18/24 17:00 Sulfa (Sulfonamide AdvReac Rash Verified 08/18/24 17:00 Antibiotics) Patient History Medical History Hypertension Prostate cancer Social History Smoking Status: Never smoker Smoking Status: Never smoker alcohol intake frequency: a few times a month Exam Narrative Exam Narrative: GENERAL: Well-developed patient, in mild distress. HEAD: Atraumatic. Normocephalic. EYES: Pupils equal round and reactive. Extraocular motions intact. No scleral icterus. No injection or drainage. ENT: Nose without bleeding, purulent drainage. Throat without erythema, tonsillar hypertrophy or exudate. Airway patent. NECK: Trachea midline. Non tender CARDIOVASCULAR: Regular rate and rhythm without murmurs, gallops, or rubs. RESPIRATORY: Clear to auscultation. Breath sounds equal bilaterally. No wheezes, rales, or rhonchi. GASTROINTESTINAL: Abdomen soft, non-tender, nondistended. Suprapubic catheter in place, site appears clean, no redness or induration, no expressible fluid. Catheter was placed on Thursday last week. EXTREMITIES: No edema or joint tenderness. BACK: Nontender without deformity or crepitance. No flank tenderness. NEURO: AOx3. Motor functions grossly nonfocal SKIN: No rash or erythema of visible areas Initial Vital Signs Initial Vital Signs: Vital Signs Temperature 98.8 F 08/18/24 16:59 Pulse Rate 96 H 08/18/24 16:59 Respiratory Rate 18 08/18/24 16:59 Blood Pressure 193/91 H 08/18/24 16:59 Pulse Oximetry 99 08/18/24 16:59 Oxygen Delivery Method Room Air 08/18/24 16:59 Course Orders Ordered: Discontinued Medications Hydrocodone Bitart/Acetaminophen (Hydrocodone/Acet 5/325 Prepack) 1 bottle MISC DIRECTED ONE Stop: 08/18/24 20:14 Last Admin: 08/18/24 20:58 Dose: 1 bottle Documented By: Hydromorphone HCl (Hydromorphone 0.5 Mg Inj) 0.5 mg IV Q15MIN PRN PRN Reason: Pain, Last Admin: 08/18/24 18:13 Dose: 0.5 mg Documented By: KIRILL Sodium Chloride (Normal Saline 0.9%) 1,000 mls @ 1,000 mls/hr IV BOLUS ONE Stop: 08/18/24 19:06 Last Infusion: 08/18/24 19:25 Dose: Infused Documented By: Admin: 08/18/24 18:13 Dose: 1,000 mls/hr Documented By: KIRILL Ciprofloxacin (Cipro) 400 mg in 200 mls @ 200 mls/hr IV NOW ONE Stop: 08/18/24 20:00 Last Admin: 08/18/24 20:04 Dose: Not Given Documented By: Ceftriaxone Sodium 1,000 mg/ (Sodium Chloride) 100 mls @ 200 mls/hr IV NOW ONE Stop: 08/18/24 19:35 Last Infusion: 08/18/24 20:20 Dose: Infused Documented By: Admin: 08/18/24 19:43 Dose: 200 mls/hr Documented By: Ondansetron HCl (Ondansetron 4 Mg/2 Ml Inj) 4 mg IV NOW ONE Stop: 08/18/24 18:08 Last Admin: 08/18/24 18:13 Dose: 4 mg Documented By: KIRILL Vital Signs Vital signs: Vital Signs - 8 hr 08/18/24 16:59 08/18/24 18:30 08/18/24 18:31 Temperature 98.8 F Pulse Rate 96 H 59 L 60 Respiratory Rate 18 Blood Pressure 193/91 H Pulse Oximetry 99 97 96 Oxygen Delivery Method Room Air Room Air 08/18/24 18:31 08/18/24 19:00 08/18/24 19:00 Temperature Pulse Rate 62 Respiratory Rate Blood Pressure 178/90 H 155/80 H Pulse Oximetry 91 Oxygen Delivery Method 08/18/24 19:30 08/18/24 19:31 08/18/24 19:31 Temperature Pulse Rate 69 65 Respiratory Rate Blood Pressure 188/100 H Pulse Oximetry 98 98 Oxygen Delivery Method 08/18/24 19:46 08/18/24 19:46 Temperature Pulse Rate 60 Respiratory Rate Blood Pressure 151/78 H Pulse Oximetry 93 Oxygen Delivery Method Room Air Medical Decision Making Lab Data Lab results reviewed: Yes I reviewed the patient's lab results. Lab results narrative: White blood cell count 7600, hemoglobin 12.7, platelets 238,000. Glucose 126. BUN creatinine normal. Serum CO2 22. Electrolytes normal. LFTs normal. Urinalysis with bacteriuria and pyuria, urine culture triggered. 08/18/24 17:41 08/18/24 17:41 Labs: Lab Results 08/18/24 08/18/24 Range/Units 17:41 18:48 WBC 7.6 (4.5-11.0) X10^3/uL RBC 4.39 L (4.5-5.9) X10^6/uL Hgb 12.7 L (13.5-17.5) g/dL Hct 37.9 L (41-53) % MCV 86.2 (80-100) fL MCH 29.0 (26-34) PG MCHC 33.6 (30-36) % RDW 15.7 H (11.6-14.8) % Plt Count 238 (150-400) X10^3/uL Neut % (Auto) 82.1 H (50-75) % Lymph % (Auto) 8.8 L (25-40) % [place] % (Auto) 6.0 (3-14) % Eos % (Auto) 2.6 (2-4) % Baso % (Auto) 0.5 (0-2) % Neut # (Auto) 6200 (2881-9593) /uL Lymph # (Auto) 700 L (5509-3272) /uL [place] # (Auto) 500 (0-900) /uL Eos # (Auto) 200 (0-450) /uL Baso # (Auto) 0 (0-100) /uL Sodium 139 (137-145) mmol/L Potassium 3.7 (3.4-5.1) mmol/L Chloride 106 (98-107) mmol/L Carbon Dioxide 22 (22-32) mmol/L BUN 19 (9-20) mg/dL Creatinine 0.95 (0.66-1.25) mg/dL Estimated GFR > 60 (>60) mL/min BUN/Creatinine Ratio 20.0 (6-22) Glucose 126 H (70-99) mg/dL Calcium 9.9 (8.4-10.2) mg/dL Total Bilirubin 0.6 (0.2-1.3) mg/dL AST 24 (17-59) IU/L ALT 18 (<50) IU/L Alkaline Phosphatase 55 (38-126) U/L Total Protein 7.0 (6.3-8.2) g/dL Albumin 4.5 (3.5-5.0) g/dL Globulin 2.5 (1.7-4.1) g/dL Albumin/Globulin Ratio 1.8 (1.0-2.8) Urine Color Yellow Urine Appearance Cloudy Urine pH 5.5 (4.5-8.0) Ur Specific Bivalve 1.010 (1.000-1.035) Urine Protein 1+ H (Negative) Urine Glucose (UA) Negative (Negative) g/dL Urine Ketones Negative (NEGATIVE) Urine Occult Blood 2+ H (Negative) Urine Nitrate Positive H (Negative) Urine Bilirubin Negative (NEGATIVE) Urine Urobilinogen 0.2 (0.2) E.U./dL Ur Leukocyte Esterase Trace H (NEGATIVE) Urine RBC 1-5/hpf D (0-5/HPF) Urine WBC 10-30/hpf H (0-5/HPF) Ur Squamous Epith Cells None seen (0-5/HPF) Urine Bacteria Many (>30) H (None) Urine Mucus 2+ H (Negative) Ur Culture Indicated? Specimen cultured Vol Urine Centrifuged 10ml (spun) Imaging Data CT scan - abdomen/pelvis: Radiologist's Impression: [address] [place] [address] CT Scan Report Signed Patient: Brayden Guo MR#: [id number] : 1955 Acct:[id number] Age/Sex: 69 / M Date of Service: 08/18/24 Loc: ED Accession Number: [id number] Procedure: CT kidney ureter bladder (KUB) Ordering Provider: Deborah Franz MD PROCEDURE: CT KIDNEY URETER BLADDER (KUB) INDICATIONS: flank pain TECHNIQUE: CT of the abdomen and pelvis was obtained without intravenous contrast. Coronal and sagittal reformats were performed. For radiation dose reduction, the following was used: automated exposure control, adjustment of mA and/or kV according to patient size. COMPARISON: Located Within [facility], CT, CT KIDNEY URETER BLADDER (KUB), 05/16/2024, 1:16. FINDINGS: Image quality: Diagnostic. Lower Chest: No significant findings. ABDOMEN: Liver: No contour-deforming mass. Gallbladder: No radiopaque gallstones or wall thickening. Biliary ducts: No biliary dilation. Pancreas: No ductal dilation. Spleen: Size is within normal limits. Adrenal Glands: Benign left adrenal myelolipoma measuring 1.3 centimeter, benign. Kidneys and Ureters: Mild right-sided ureterectasis and pelvocaliectasis, with periureteric fat stranding. Stomach and Bowel: Normal colonic caliber, without significant wall thickening. Colonic diverticulosis without evidence of diverticulitis. Peritoneum: No abnormal intraperitoneal fluid. No free air. Ventral Wall: No significant hernia. Abdominal Nodes: No retroperitoneal or mesenteric adenopathy by size criteria. Vessels: Aorta and inferior vena cava are normal in size. PELVIS: Pelvic Organs: Unremarkable. Bladder: Decompressed around a suprapubic catheter. Pelvic Nodes: No enlarged lymph nodes. Miscellaneous: Small indirect inguinal hernias containing fat. Bones: No aggressive osseous abnormality. IMPRESSION: There is right-sided ureterectasis and pelvocaliectasis, with right-sided periureteric fat stranding. Findings suggest ascending urinary tract infection. Bladder is decompressed around a Butler catheter. Dictated by: Biju Woo M.D. on 08/18/2024 at 18:50 Approved by: Biju Woo M.D. on 08/18/2024 at 18:53 [facility] Narrative Medical decision making narrative: 69-year-old male with history of suprapubic catheter, prior prostate cancer surgery 2019, subsequent urinary incontinence, urethral stricture, unable to have surgery with complete occlusion, suprapubic catheter, possible future attempt at transurethral opening, current hyperbaric therapy through Urology at [facility], recurrent UTI, last UTI May 2024 was resistant to initial Cipro, recalls changes of antibiotics to cephalosporin. Nontraumatic right-sided flank pain today, worried that he has kidney infection again. Afebrile, sirs screen negative. Suprapubic site clean, last catheter change on Thursday 2 days ago, abdomen otherwise soft nontender. Urinalysis suspicious for infection, many bacteria. IV ceftriaxone started. CT Abdomen Pelvis. IMPRESSION: There is right-sided ureterectasis and pelvocaliectasis, with right-sided periureteric fat stranding. Findings suggest ascending urinary tract infection. Bladder is decompressed around a Butler catheter. See radiology report. CT suspicious for pyelonephritis, urinalysis suspicious for infection, IV ceftriaxone started. Most recent urinary tract infection May 2024 had changed from Cipro to cephalosporin antibiotic, due to resistance to Cipro per his report. We will give oral cefdinir antibiotic for now. Follow up with PCP early this week to check symptoms and urine culture results. Follow up with [facility] urology for re-attempted trans urethral stricture treatment, ongoing hyperbaric therapy. Also gave contact information for local urologist Dr. Mcgregor to liaison with [facility], and for interim follow up as needed. Good response to IV Dilaudid, we will give home pack hydrocodone which he has tolerated in the past. Discharged home. Return precautions discussed. Discharge Plan Departure Patient Disposition: Home Clinical Impression: Pyelonephritis Activity Restrictions/Additional Instructions: History of recurrent urine infections, last urine infection May 2024 with initial ciprofloxacin antibiotic change to cephalosporin antibiotic due to likely resistance, no allergic reaction to ciprofloxacin. History of suprapubic catheter, ongoing hyperbaric treatments through Urology [facility], possible re- attempt at trans urethral catheter placement and maybe there could be future successful takedown of suprapubic catheter, however the suprapubic catheter still in place, last changed on Thursday. CT imaging due to right flank pain performed, suspicious for infection on the right side, no obstructing ureteral stone, no abscess formation. IV ceftriaxone cephalosporin given. We will give prescription for oral cefdinir antibiotic, prescription sent to your pharmacy. Take antibiotics as directed. Consider follow up early next week with your local doctor, or with [facility] Urology. We will also give contact information for local urologist Dr. Mcgregor for liaison contact as well. Return earlier to this/nearest emergency department for any change worsening symptoms or any concerns prior. Prescriptions: New cefdinir 300 mg capsule 300 mg PO BID 10 Days Qty: 20 0RF No Action potassium chloride 20 mEq tablet extended release 20 meq PO BID lisinopril 40 mg tablet 40 mg PO DAILY hydrochlorothiazide 25 mg tablet 25 mg PO DAILY amlodipine 10 mg tablet 10 mg PO DAILY metformin 1,000 mg tablet 1,000 mg PO BID allopurinol 100 mg tablet 100 mg PO DAILY rosuvastatin PO ciprofloxacin HCl 500 mg tablet 500 mg PO Q12H Qty: 20 0RF meloxicam 7.5 mg tablet 7.5 mg PO DAILY PRN (Reason: pain) Qty: 5 0RF methylprednisolone [Medrol (Ravinder)] 4 mg tablets,dose pack See Rx Instructions .ROUTE .COMPLEX Qty: 21 0RF Rx Instructions: for 6 days benzonatate 100 mg capsule 100 mg PO TID PRN (Reason: cough) Qty: 14 0RF albuterol sulfate 90 mcg/actuation HFA aerosol inhaler 2 puff inhalation Q4-6H PRN (Reason: shortness of breath or wheezing) Qty: 8.5 0RF ciprofloxacin HCl [Cipro] 500 mg tablet 500 mg PO BID Qty: 14 0RF ciprofloxacin HCl [Cipro] 500 mg tablet 500 mg PO Q12H Qty: 20 0RF cefpodoxime 100 mg tablet 100 mg PO BID Qty: 10 0RF Rx Instructions: must administer with a meal/food cephalexin 500 mg capsule 500 mg PO BID Qty: 20 0RF Referrals: Phillip Mcgregor DO [Physician, Urology] Miscellaneous,Doctor, MD [Primary Care Provider, Medical] Stand Alone Forms: Patient Portal/API
[2024-08-18] MEDS: cefTRIAXone 1,000 MG in SODIUM CHLORIDE 0.9% 100 ML 200 MG IV (19:43)
[2024-08-18 19:55] LABS: Bilirubin Urine UA NEGATIVE (NEGATIVE); Color Urine UA YELLOW; Glucose Urine UA NEGATIVE (Negative); Ketones Urine UA NEGATIVE (NEGATIVE); Leukocyte Esterase Urine UA TRACE (NEGATIVE); Nitrite Urine UA POSITIVE (Negative); Occult Blood Urine UA 2+ (Negative); Protein Urine UA 1+ (Negative); Urobilinogen Urine UA 0.2 E.U./dL (0.2); pH Urine UA 5.5 (4.5-8.0)
[2024-08-18 19:57] LABS: Appearance Urine UA CLOUDY
[2024-08-18 20:04] LABS: Bacteria Urine Many (>30); Culture Indicated Urine Specimen Cultured; Mucus Urine 2+ (Negative); RBC Urine 1-5/HPF (0-5/HPF); Squamous Epithelial Cell Urine None Seen (0-5/HPF); Urine Volume 10mL (spun); WBC Urine 10-30/HPF (0-5/HPF)
[2024-08-18] MEDS: HYDROCODONE/ACET 5/325 PREPACK 1 BOTTLE MISC (20:58)
== END 2024-08-18 21:04 | disposition home or self-care (01) ==
PROVIDERS: Emergency Medicine; Emergency Provider Emergency Medicine
DX: N12 Tubulo-interstitial nephritis, not specified as acute or chronic (principal); Z93.6 Other artificial openings of urinary tract status; Z85.46 Personal history of malignant neoplasm of prostate
CPT/HCPCS: 36415; 74176; 80053; 81001; 85025; 87077; 87086; 87186; 96361; 96365; 96375; 99284; G0277; J0696; J1171; J2405

== ENCOUNTER → 2024-08-19 14:26 | Outpatient (CLI) | payer MEDICARE, BC, SELFPAY | LOC: WC 14:27 | PROVIDERS: Visit Provider Surgery | DX: N30.41 Irradiation cystitis with hematuria (principal) | CPT/HCPCS: 99183; G0277 ==

== ENCOUNTER → 2024-08-22 12:12 | Outpatient (CLI) | payer MEDICARE, BC, SELFPAY | LOC: WC 12:13 | PROVIDERS: Visit Provider Surgery | DX: N30.41 Irradiation cystitis with hematuria (principal) | CPT/HCPCS: 99183; G0277 ==

== ENCOUNTER → 2024-08-23 08:57 | Outpatient (CLI) | payer MEDICARE, BC, SELFPAY | LOC: WC 09:29 | PROVIDERS: Visit Provider Surgery | DX: N30.41 Irradiation cystitis with hematuria (principal) | CPT/HCPCS: 99183; G0277 ==

== ENCOUNTER → 2024-08-24 09:31 | Outpatient (CLI) | payer MEDICARE, BC, SELFPAY | LOC: WC 09:33 | PROVIDERS: Visit Provider Surgery | DX: N30.41 Irradiation cystitis with hematuria (principal) | CPT/HCPCS: 99183; G0277 ==

== ENCOUNTER → 2024-08-25 08:47 | Outpatient (CLI) | payer MEDICARE, BC, SELFPAY | LOC: WC 09:05 | PROVIDERS: Visit Provider Surgery | DX: N30.41 Irradiation cystitis with hematuria (principal) | CPT/HCPCS: 99183; G0277 ==

== ENCOUNTER → 2024-08-29 11:20 | Outpatient (CLI) | payer MEDICARE, BC, SELFPAY | PROVIDERS: Visit Provider Surgery | DX: N30.41 Irradiation cystitis with hematuria (principal) | CPT/HCPCS: 99183; G0277 ==

== ENCOUNTER → 2024-08-30 10:47 | Outpatient (CLI) | payer MEDICARE, BC, SELFPAY | PROVIDERS: Visit Provider Surgery | DX: N30.41 Irradiation cystitis with hematuria (principal) | CPT/HCPCS: 99183; G0277 ==

== ENCOUNTER → 2024-08-31 09:01 | Outpatient (CLI) | payer MEDICARE, BC, SELFPAY | PROVIDERS: Visit Provider Surgery | DX: N30.41 Irradiation cystitis with hematuria (principal) | CPT/HCPCS: 99183; G0277 ==

== ENCOUNTER → 2024-09-01 09:57 | Outpatient (CLI) | payer MEDICARE, BC, SELFPAY | PROVIDERS: Visit Provider Surgery | DX: N30.41 Irradiation cystitis with hematuria (principal) | CPT/HCPCS: 99183; G0277 ==

== ENCOUNTER → 2024-09-02 08:58 | Outpatient (CLI) | payer MEDICARE, BC, SELFPAY | LOC: WC 08:59 | PROVIDERS: Visit Provider Nurse Practitioner Family | DX: N30.41 Irradiation cystitis with hematuria (principal) | CPT/HCPCS: 99183; G0277 ==

== ENCOUNTER → 2024-09-05 14:12 | Outpatient (CLI) | payer MEDICARE, BC, SELFPAY | LOC: WC 14:14 | PROVIDERS: Visit Provider Surgery | DX: N30.41 Irradiation cystitis with hematuria (principal) | CPT/HCPCS: 99183; G0277 ==

== ENCOUNTER → 2024-09-06 14:39 | Outpatient (CLI) | payer MEDICARE, BC, SELFPAY | LOC: WC 14:40 | PROVIDERS: Visit Provider Surgery | DX: N30.41 Irradiation cystitis with hematuria (principal); C61 Malignant neoplasm of prostate; E11.622 Type 2 diabetes mellitus with other skin ulcer; I10 Essential (primary) hypertension; I26.09 Other pulmonary embolism with acute cor pulmonale | CPT/HCPCS: 99183; 99212; 99213; G0277 ==

== ENCOUNTER → 2024-09-07 08:35 | Outpatient (CLI) | payer MEDICARE, BC, SELFPAY | LOC: WC 08:38 | PROVIDERS: Visit Provider Nurse Practitioner Family | DX: N30.41 Irradiation cystitis with hematuria (principal) | CPT/HCPCS: 99183; G0277 ==

== ENCOUNTER → 2024-09-08 09:24 | Outpatient (CLI) | payer MEDICARE, BC, SELFPAY | LOC: WC 09:26 | PROVIDERS: Visit Provider Nurse Practitioner Family | DX: N30.41 Irradiation cystitis with hematuria (principal) | CPT/HCPCS: 99183; G0277 ==

== ENCOUNTER → 2024-09-09 12:02 | Outpatient (CLI) | payer MEDICARE, BC, SELFPAY | LOC: WC 12:04 | PROVIDERS: Visit Provider Physician Assistant | DX: N30.41 Irradiation cystitis with hematuria (principal) | CPT/HCPCS: 99183; G0277 ==

== ENCOUNTER → 2024-09-12 09:32 | Outpatient (CLI) | payer MEDICARE, BC, SELFPAY | LOC: WC 09:33 | PROVIDERS: Visit Provider Surgery | DX: N30.41 Irradiation cystitis with hematuria (principal) | CPT/HCPCS: 99183; G0277 ==

== ENCOUNTER → 2024-09-13 08:26 | Outpatient (CLI) | payer MEDICARE, BC, SELFPAY | LOC: WC 08:26 | PROVIDERS: Visit Provider Surgery | DX: N30.41 Irradiation cystitis with hematuria (principal) | CPT/HCPCS: 99183; G0277 ==

== ENCOUNTER → 2024-09-14 15:26 | Outpatient (CLI) | payer MEDICARE, BC, SELFPAY | LOC: WC 15:28 | PROVIDERS: Visit Provider Surgery | DX: N30.41 Irradiation cystitis with hematuria (principal) | CPT/HCPCS: 99183; G0277 ==

== ENCOUNTER → 2024-09-15 09:08 | Outpatient (CLI) | payer MEDICARE, BC, SELFPAY | LOC: WC 09:09 | PROVIDERS: Visit Provider Surgery | DX: N30.41 Irradiation cystitis with hematuria (principal) | CPT/HCPCS: 99183; G0277 ==

== ENCOUNTER → 2024-09-16 09:57 | Outpatient (CLI) | payer MEDICARE, BC, SELFPAY | LOC: WC 09:59 | PROVIDERS: Visit Provider Physician Assistant | DX: N30.41 Irradiation cystitis with hematuria (principal) | CPT/HCPCS: 99183; G0277 ==

== ENCOUNTER → 2024-09-19 13:04 | Outpatient (CLI) | payer MEDICARE, BC, SELFPAY | LOC: WC 13:06 | PROVIDERS: Visit Provider Surgery | DX: N30.41 Irradiation cystitis with hematuria (principal) | CPT/HCPCS: 99183; G0277 ==

== ENCOUNTER → 2024-09-21 09:30 | Outpatient (CLI) | payer MEDICARE, BC, SELFPAY | LOC: WC 09:31 | PROVIDERS: Visit Provider Surgery | DX: N30.41 Irradiation cystitis with hematuria (principal) | CPT/HCPCS: 99183; G0277 ==

== ENCOUNTER 2024-10-04 16:09 | Emergency (ER) | payer MEDICARE, BC, SELFPAY ==
[2024-10-04 16:17] VITALS: BP 174/84; PULSE 66; RESP 17; TEMP 37; O2SAT 95; BMI 29.7
--- NOTE | 2024-10-04 16:29 | ED.MALEGU ---
HPI - Male Genitourinary <Vivian Infante PA-C - Last Filed: 10/04/24 18:39> General Chief complaint: Urogenital-Male Stated complaint: possible kidney infection Time Seen by Provider: 10/04/24 16:15 Source: patient Mode of arrival: Ambulatory History of Present Illness HPI Narrative: Patient is a 69-year-old male with past medical history prostate cancer, status post resection in 2019, subsequent urinary incontinence and urethral stricture, failed trans urethral catheter, currently with a suprapubic catheter in place. Patient suffers from frequent urinary tract infections, the last infection was in July 2024. Patient is here today for 2 days of bilateral flank pain, left greater than right and blood clots from his catheter. No fever, chills, nausea, vomiting, chest pain, shortness of breath, abdominal pain, lightheadedness, dizziness, syncope. Patient sees a urologist at [facility] and is also scheduled to see Dr. Dent later this week. Related Data Home Medications ?Medication ?Instructions ?Recorded ?Confirmed allopurinol 100 mg tablet 100 mg PO DAILY 12/29/22 12/29/22 amlodipine 10 mg tablet 10 mg PO DAILY 12/29/22 12/29/22 hydrochlorothiazide 25 mg tablet 25 mg PO DAILY 12/29/22 12/29/22 lisinopril 40 mg tablet 40 mg PO DAILY 12/29/22 12/29/22 metformin 1,000 mg tablet 1,000 mg PO BID 12/29/22 12/29/22 potassium chloride 20 mEq 20 meq PO BID 12/29/22 12/29/22 tablet,extended release rosuvastatin PO 12/29/22 12/29/22 Previous Rx's ?Medication ?Instructions ?Recorded albuterol sulfate 90 mcg/actuation 2 puff inhalation Q4-6H PRN 02/26/22 aerosol inhaler shortness of breath or wheezing #8.5 grams benzonatate 100 mg capsule 100 mg PO TID PRN cough #14 caps 02/26/22 ciprofloxacin HCl 500 mg tablet 500 mg PO BID #14 tabs 01/28/24 (Cipro) ciprofloxacin HCl 500 mg tablet 500 mg PO Q12H #20 tabs 05/16/24 meloxicam 7.5 mg tablet 7.5 mg PO DAILY PRN pain #5 tabs 05/16/24 methylprednisolone 4 mg tablets in See Rx Instructions PO .COMPLEX 06/02/24 a dose pack (Medrol (Ravinder)) #21 ea ciprofloxacin HCl 500 mg tablet 500 mg PO Q12H #20 tabs 06/18/24 (Cipro) cefpodoxime 100 mg tablet 100 mg PO BID #10 tabs 06/21/24 cephalexin 500 mg capsule 500 mg PO BID #20 caps 06/21/24 cefdinir 300 mg capsule 300 mg PO Q12H 10 days #20 caps 10/04/24 Allergies Allergy/AdvReac Type Severity Reaction Status Date / Time sulfamethoxazole (From AdvReac Mild Rash Verified 10/04/24 16:17 Bactrim) trimethoprim (From Bactrim) AdvReac Mild Rash Verified 10/04/24 16:17 Penicillins AdvReac Rash Verified 10/04/24 16:17 Sulfa (Sulfonamide AdvReac Rash Verified 10/04/24 16:17 Antibiotics) Review of Systems <Vivian Infante PA-C - Last Filed: 10/04/24 18:39> Constitutional Constitutional: Denies chills, Denies fatigue, Denies fever(s), Denies frequent falls, Denies lethargy and Denies weakness Eyes Eyes: Denies change in vision, Denies eye discharge, Denies irritation and Denies loss of vision ENT Ears, Nose, Mouth, and Throat: Denies change in voice, Denies dizziness, Denies neck pain, Denies sore throat and Denies throat swelling Cardiovascular Cardiovascular: Denies chest pain, Denies irregular heart rhythm, Denies lightheadedness, Denies palpitations, Denies dyspnea, Denies dyspnea on exertion and Denies orthopnea Respiratory Respiratory: Denies cough, Denies dyspnea, Denies dyspnea on exertion and Denies wheezing Gastrointestinal Gastrointestinal: Denies abdominal pain, Denies change in bowel habits, Denies diarrhea, Denies nausea and Denies vomiting Genitourinary Comments: Flank pain, left greater than right. Blood clots from suprapubic catheter. Musculoskeletal Musculoskeletal: Denies neck pain and Denies numbness Integumentary/Breasts Skin/Breast: Denies pruritus, Denies erythema, Denies rash and Denies wounds Neurologic Neurologic: Denies behavioral changes, Denies confusion, Denies dizziness, Denies frequent falls, Denies loss of vision, Denies numbness and Denies weakness Psychiatric Psychiatric: Denies anxiety, Denies behavioral changes, Denies confusion, Denies depression, Denies homicidal ideation and Denies suicidal ideation Endocrine Endocrine: Denies fatigue, Denies flushing and Denies palpitations Hematologic/Lymphatic Hematologic/Lymphatic: Denies easy bruising Allergic/Immunologic Allergic/Immunologic: Denies urticaria, Denies throat swelling and Denies wheezing Patient History <Vivian Infante PA-C - Last Filed: 10/04/24 18:39> Medical History Hypertension Prostate cancer alcohol intake frequency: a few times a month Exam <Vivian Infante PA-C - Last Filed: 10/04/24 18:39> Narrative Exam Narrative: Const General:?cooperative, healthy appearing and comfortable HENMI Head:?normal to inspection Ears:?hearing grossly normal bilaterally Nose:?external nose normal Face and sinus:?normal facial exam and sinuses nontender Mouth:?oral mucosae normal Throat:?posterior oropharynx normal Eyes General:?appearance normal, both eyes and all related structures Neck Neck:?normal visual inspection and no lymphadenopathy noted Resp Effort & Inspection:?normal respiratory effort Auscultation:?clear to auscultation bilaterally Cardio Rate:?regular rate Rhythm:?regular rhythm GI/ Abdomen is soft, nondistended, nontender to palpation. There is CVA tenderness, left greater than right. Suprapubic catheter in place, draining appropriately. Neuro General:?patient alert, patient awake and patient oriented x3 Initial Vital Signs Initial Vital Signs: Vital Signs Temperature 98.6 F 10/04/24 16:17 Pulse Rate 66 10/04/24 16:17 Respiratory Rate 17 10/04/24 16:17 Blood Pressure 174/84 H 10/04/24 16:17 Pulse Oximetry 95 10/04/24 16:17 Oxygen Delivery Method Room Air 10/04/24 16:17 <Quirino Rodriguez DO - Last Filed: 10/05/24 18:26> Initial Vital Signs Initial Vital Signs: Vital Signs Temperature 98.6 F 10/04/24 16:17 Pulse Rate 66 10/04/24 16:17 Respiratory Rate 17 10/04/24 16:17 Blood Pressure 174/84 H 10/04/24 16:17 Pulse Oximetry 95 10/04/24 16:17 Oxygen Delivery Method Room Air 10/04/24 16:17 Course <Vivian Infante PA-C - Last Filed: 10/04/24 18:39> Orders Ordered: Discontinued Medications Ceftriaxone Sodium 1,000 mg/ (Sodium Chloride) 100 mls @ 200 mls/hr IV NOW ONE Stop: 10/04/24 17:46 Last Infusion: 10/04/24 18:40 Dose: Infused Documented By: Admin: 10/04/24 18:05 Dose: 200 mls/hr Documented By: RLC Vital Signs Vital signs: Vital Signs - 8 hr 10/04/24 16:17 Temperature 98.6 F Pulse Rate 66 Respiratory Rate 17 Blood Pressure 174/84 H Pulse Oximetry 95 Oxygen Delivery Method Room Air <Quirino Rodriguez DO - Last Filed: 10/05/24 18:26> Orders Ordered: Discontinued Medications Ceftriaxone Sodium 1,000 mg/ (Sodium Chloride) 100 mls @ 200 mls/hr IV NOW ONE Stop: 10/04/24 17:46 Last Infusion: 10/04/24 18:40 Dose: Infused Documented By: Admin: 10/04/24 18:05 Dose: 200 mls/hr Documented By: RLC Vital Signs Vital signs: Vital Signs - 8 hr 10/04/24 16:17 Temperature 98.6 F Pulse Rate 66 Respiratory Rate 17 Blood Pressure 174/84 H Pulse Oximetry 95 Oxygen Delivery Method Room Air MDM - Male Genitourinary <Vivian Infante PA-C - Last Filed: 10/04/24 18:39> Lab Data Labs: Lab Results 10/04/24 Range/Units 16:52 Urine Color Yellow Urine Appearance Sl cloudy Urine pH 5.0 (4.5-8.0) Ur Specific [place] 1.025 (1.000-1.035) Urine Protein 2+ H (Negative) Urine Glucose (UA) Negative (Negative) g/dL Urine Ketones Trace H (NEGATIVE) Urine Occult Blood 2+ H (Negative) Urine Nitrate Positive H (Negative) Urine Bilirubin Negative (NEGATIVE) Urine Urobilinogen 1.0 (0.2) E.U./dL Ur Leukocyte Esterase 1+ H (NEGATIVE) Urine RBC 10-30/hpf H (0-5/HPF) Urine WBC >100/hpf H (0-5/HPF) Ur Squamous Epith Cells 1-5 /hpf (0-5/HPF) Urine Bacteria Few (2-10) H (None) Ur Culture Indicated? Specimen cultured Vol Urine Centrifuged Low vol <10ml (spun) [facility] Narrative Medical decision making narrative: Patient is a 69-year-old male with past medical history prostate cancer, status post resection in 2019, subsequent urinary incontinence and urethral stricture, failed trans urethral catheter, currently with a suprapubic catheter in place. Patient suffers from frequent urinary tract infections, the last infection was in July 2024. Patient is here today for 2 days of bilateral flank pain, left greater than right and blood clots from his catheter. Urinalysis positive for UTI. 2+ urine protein, trace urine ketones, 2+ urine occult blood. Urine nitrate positive. 1+ leukocyte esterase, 10-30 urine RBC, greater than 100 urine WBC. Patient given a dose of IV ceftriaxone in the ED. prescription for cefdinir sent to the pharmacy. Patient's last micro shows resistance to ciprofloxacin and levofloxacin. Patient states that he had good resolution with cefdinir. ED return precautions discussed with patient. Patient verbalized understanding. Medical records reviewed: Yes <Quirino Rodriguez, DO - Last Filed: 10/05/24 18:26> Lab Data Labs: Lab Results 10/04/24 Range/Units 16:52 Urine Color Yellow Urine Appearance Sl cloudy Urine pH 5.0 (4.5-8.0) Ur Specific [place] 1.025 (1.000-1.035) Urine Protein 2+ H (Negative) Urine Glucose (UA) Negative (Negative) g/dL Urine Ketones Trace H (NEGATIVE) Urine Occult Blood 2+ H (Negative) Urine Nitrate Positive H (Negative) Urine Bilirubin Negative (NEGATIVE) Urine Urobilinogen 1.0 (0.2) E.U./dL Ur Leukocyte Esterase 1+ H (NEGATIVE) Urine RBC 10-30/hpf H (0-5/HPF) Urine WBC >100/hpf H (0-5/HPF) Ur Squamous Epith Cells 1-5 /hpf (0-5/HPF) Urine Bacteria Few (2-10) H (None) Ur Culture Indicated? Specimen cultured Vol Urine Centrifuged Low vol <10ml (spun) [facility] Narrative Medical decision making narrative: Patient is a 69-year-old male with past medical history prostate cancer, status post resection in 2019, subsequent urinary incontinence and urethral stricture, failed trans urethral catheter, currently with a suprapubic catheter in place. Patient suffers from frequent urinary tract infections, the last infection was in July 2024. Patient is here today for 2 days of bilateral flank pain, left greater than right and blood clots from his catheter. Urinalysis positive for UTI. 2+ urine protein, trace urine ketones, 2+ urine occult blood. Urine nitrate positive. 1+ leukocyte esterase, 10-30 urine RBC, greater than 100 urine WBC. Patient given a dose of IV ceftriaxone in the ED. prescription for cefdinir sent to the pharmacy. Patient's last micro shows resistance to ciprofloxacin and levofloxacin. Patient states that he had good resolution with cefdinir. ED return precautions discussed with patient. Patient verbalized understanding. Medical records reviewed: Yes Co-sign statement: I was available for consultation during this patient's emergency department visit. This chart is signed by myself for administrative purposes only. I did not have direct contact with this patient during this visit. They were seen independently by the [facility]. Discharge Plan Departure Patient Disposition: Home Clinical Impression: Urinary tract infection Qualifiers: Urinary tract infection type: site unspecified Hematuria presence: with hematuria Qualified Code(s): N39.0 - Urinary tract infection, site not specified Instructions: DI for Kidney Infection Activity Restrictions/Additional Instructions: You were evaluated in the ED today for symptoms of a kidney infection. Your you urine did test positive for a urinary tract infection. You were given a dose of IV antibiotics in the emergency room today. You were also being prescribed oral antibiotics for the next 10 days. Your urine has already been sent for culture. It is reassuring to note that you have a urology appointment with Dr. Mcgregor that is coming up in the next 2 days. In the meanwhile, please return to the ED if you have worsening symptoms. Prescriptions: New cefdinir 300 mg capsule 300 mg PO Q12H 10 Days Qty: 20 0RF No Action potassium chloride 20 mEq tablet extended release 20 meq PO BID lisinopril 40 mg tablet 40 mg PO DAILY hydrochlorothiazide 25 mg tablet 25 mg PO DAILY amlodipine 10 mg tablet 10 mg PO DAILY metformin 1,000 mg tablet 1,000 mg PO BID allopurinol 100 mg tablet 100 mg PO DAILY rosuvastatin PO ciprofloxacin HCl 500 mg tablet 500 mg PO Q12H Qty: 20 0RF meloxicam 7.5 mg tablet 7.5 mg PO DAILY PRN (Reason: pain) Qty: 5 0RF methylprednisolone [Medrol (Ravinder)] 4 mg tablets,dose pack See Rx Instructions .ROUTE .COMPLEX Qty: 21 0RF Rx Instructions: for 6 days benzonatate 100 mg capsule 100 mg PO TID PRN (Reason: cough) Qty: 14 0RF albuterol sulfate 90 mcg/actuation HFA aerosol inhaler 2 puff inhalation Q4-6H PRN (Reason: shortness of breath or wheezing) Qty: 8.5 0RF ciprofloxacin HCl [Cipro] 500 mg tablet 500 mg PO BID Qty: 14 0RF ciprofloxacin HCl [Cipro] 500 mg tablet 500 mg PO Q12H Qty: 20 0RF cefpodoxime 100 mg tablet 100 mg PO BID Qty: 10 0RF Rx Instructions: must administer with a meal/food cephalexin 500 mg capsule 500 mg PO BID Qty: 20 0RF Referrals: Miscellaneous,Doctor, MD [Primary Care Provider, Medical] Stand Alone Forms: Patient Portal/API
[2024-10-04 17:20] LABS: Bilirubin Urine UA NEGATIVE (NEGATIVE); Color Urine UA YELLOW; Glucose Urine UA NEGATIVE (Negative); Ketones Urine UA TRACE (NEGATIVE); Leukocyte Esterase Urine UA 1+ (NEGATIVE); Nitrite Urine UA POSITIVE (Negative); Occult Blood Urine UA 2+ (Negative); Protein Urine UA 2+ (Negative); Specific Gravity Urine UA 1.025 (1.000-1.035); Urobilinogen Urine UA 1.0 E.U./dL (0.2); pH Urine UA 5.0 (4.5-8.0)
[2024-10-04 17:37] LABS: Appearance Urine UA SL CLOUDY
[2024-10-04 17:50] LABS: Culture Indicated Urine Specimen Cultured
== END 2024-10-04 18:55 | disposition home or self-care (01) ==
PROVIDERS: Emergency Provider Student in an Organized Health Care Education/Training Program
DX: N39.0 Urinary tract infection, site not specified (principal); R31.9 Hematuria, unspecified; Z96.0 Presence of urogenital implants
CPT/HCPCS: 81001; 87077; 87086; 87186; 96365; 99283; 99284; J0696

== ENCOUNTER → 2024-10-17 15:05 | Outpatient (CLI) | payer MEDICARE, BC, SELFPAY | LOC: WC 15:07 | PROVIDERS: Visit Provider Surgery | DX: N30.41 Irradiation cystitis with hematuria (principal); Z85.46 Personal history of malignant neoplasm of prostate; Z90.79 Acquired absence of other genital organ(s); Z93.6 Other artificial openings of urinary tract status; I10 Essential (primary) hypertension; Z87.891 Personal history of nicotine dependence; Z86.711 Personal history of pulmonary embolism; E11.9 Type 2 diabetes mellitus without complications | CPT/HCPCS: 99211; 99213 ==

== ENCOUNTER → 2024-10-31 10:45 | Outpatient (CLI) | payer MEDICARE, BC, SELFPAY | LOC: WC 10:47 | PROVIDERS: Visit Provider Surgery | DX: N30.41 Irradiation cystitis with hematuria (principal) | CPT/HCPCS: 99183; G0277 ==

== ENCOUNTER → 2024-11-01 11:56 | Outpatient (CLI) | payer MEDICARE, BC, SELFPAY | LOC: WC 11:59 | PROVIDERS: Visit Provider Surgery | DX: N30.41 Irradiation cystitis with hematuria (principal) | CPT/HCPCS: 99183; G0277 ==

== ENCOUNTER → 2024-11-02 11:03 | Outpatient (CLI) | payer MEDICARE, BC, SELFPAY | LOC: WC 11:13 | PROVIDERS: Visit Provider Surgery | DX: N30.41 Irradiation cystitis with hematuria (principal) | CPT/HCPCS: 99183; G0277 ==

== ENCOUNTER → 2024-11-03 16:32 | Outpatient (CLI) | payer MEDICARE, BC, SELFPAY | LOC: WC 16:34 | PROVIDERS: Visit Provider Surgery | DX: N30.41 Irradiation cystitis with hematuria (principal) | CPT/HCPCS: 99183; G0277 ==

== ENCOUNTER → 2024-11-04 11:09 | Outpatient (CLI) | payer MEDICARE, BC, SELFPAY | LOC: WC 11:09 | PROVIDERS: Visit Provider Surgery | DX: N30.41 Irradiation cystitis with hematuria (principal) | CPT/HCPCS: 99183; G0277 ==

== ENCOUNTER 2024-11-05 20:29 | Emergency (ER) | payer MEDICARE, BC, SELFPAY ==
[2024-11-05 20:50] VITALS: BP 191/92; PULSE 72; RESP 16; TEMP 37.2; O2SAT 97; BMI 29.9
[2024-11-05 22:52] VITALS: PULSE 64; O2SAT 91
[2024-11-05 22:54] VITALS: BP 205/91; PULSE 61; O2SAT 97
[2024-11-05 23:00] VITALS: BP 179/76; PULSE 63; O2SAT 96
[2024-11-05 23:08] LABS: Culture Indicated Urine Specimen Cultured
[2024-11-05 23:30] VITALS: PULSE 60; O2SAT 94
[2024-11-05 23:31] VITALS: BP 166/79; PULSE 64; O2SAT 94
[2024-11-06] VITALS: BP 164/82; PULSE 62; O2SAT 95
--- NOTE | 2024-11-06 00:05 | ED.MALEGU ---
HPI - Male Genitourinary General Chief complaint: Urogenital-Male Stated complaint: kidney infection Time Seen by Provider: 11/06/24 00:05 Source: patient Mode of arrival: Ambulatory History of Present Illness HPI Narrative: 69-year-old male with history of prostate cancer 2013 1st diagnosis, initial surgery, subsequent radiation treatment 2019, bladder irritation and urethral strictures sequelae, status post suprapubic catheter placement December 2023 because of urethral strictures, follow up by [facility] Dr. Berman, recently treated with hyperbaric oxygen times 40 around, some improvement in the bladder appearance, starting new round of 20 hyperbaric treatments, had hyperbaric treatment earlier today. Due to see local urologist Dr. Mcgregor later this month. After his hyperbaric treatment today, had increasing discomfort in the lower abdomen, typical of his previous urine infections. Last UTI treated with cefdinir 1 month ago. Previous resistance to ciprofloxacin recalled. Currently not taking any antibiotic. No fevers or chills. No nausea or vomiting. No black or red or loose stools. Denies chest pain or shortness of breath or cough. Related Data Home Medications ?Medication ?Instructions ?Recorded ?Confirmed allopurinol 100 mg tablet 100 mg PO DAILY 12/29/22 11/05/24 amlodipine 10 mg tablet 10 mg PO DAILY 12/29/22 11/05/24 lisinopril 40 mg tablet 40 mg PO DAILY 12/29/22 11/05/24 metformin 1,000 mg tablet 1,000 mg PO BID 12/29/22 11/05/24 acetaminophen 500 mg tablet 500 mg PO Q6H PRN pain 10/06/24 11/05/24 (Tylenol Extra Strength) blood-glucose sensor (FreeStyle 11/05/24 11/05/24 [place] 3 Plus Sensor device) oxybutynin chloride 10 mg 10 mg PO DAILY 11/05/24 11/05/24 tablet,extended release 24 hr potassium chloride 20 mEq 20 meq PO BID 11/05/24 11/05/24 tablet,extended release(part/cryst) rosuvastatin 40 mg tablet 40 mg PO ONCE PM 11/05/24 11/05/24 Previous Rx's ?Medication ?Instructions ?Recorded cefdinir 300 mg capsule 300 mg PO BID 10 days #20 caps 11/06/24 Allergies Allergy/AdvReac Type Severity Reaction Status Date / Time sulfamethoxazole (From AdvReac Mild Rash Verified 11/05/24 20:48 Bactrim) trimethoprim (From Bactrim) AdvReac Mild Rash Verified 11/05/24 20:48 Penicillins AdvReac Rash Verified 11/05/24 20:48 Sulfa (Sulfonamide AdvReac Rash Verified 11/05/24 20:48 Antibiotics) Patient History Medical History (Updated 11/06/24 @ 00:17 by German Diop MD) Hx of brachytherapy History of gout Hx of diabetes mellitus History of depression Hypertension Prostate cancer Surgical History (Updated 10/06/24 @ 11:42 by Vicky Vallejo, RN) Hx of vasectomy Hx of prostatectomy Hx of prostate biopsy Hx of cataract surgery Family History (Updated 10/06/24 @ 11:44 by Vicky Vallejo, RN) Uncle Cancer Mother CVA (cerebral vascular accident) Coronary artery disease Diabetes mellitus Hyperlipidemia Father Hyperlipidemia Kidney stones Social History (Updated 10/06/24 @ 11:45 by Vicky Vallejo, RN) marital status: number of children: 3 Smoking Status: Former smoker Tobacco: How many years used: 5 alcohol intake: current caffeine: Yes Type(s) of exercise: yoga frequency: 3-4 times per week duration: > 90 minutes/day Smoking Status: Former smoker tobacco type: cigarettes and pipe alcohol intake frequency: a few times a month Exam Narrative Exam Narrative: GENERAL: Well-developed patient, in mild distress. HEAD: Atraumatic. Normocephalic. EYES: Pupils equal round and reactive. Extraocular motions intact. No scleral icterus. No injection or drainage. ENT: Nose without bleeding, purulent drainage. Throat without erythema, tonsillar hypertrophy or exudate. Airway patent. NECK: Trachea midline. Non tender CARDIOVASCULAR: Regular rate and rhythm without murmurs, gallops, or rubs. RESPIRATORY: Clear to auscultation. Breath sounds equal bilaterally. No wheezes, rales, or rhonchi. GASTROINTESTINAL: Abdomen soft, non-tender, nondistended. Suprapubic catheter in place, site well-appearing, no expressible fluid. Cloudy urine in collection bad, without blood flecks or red color. EXTREMITIES: No edema or joint tenderness. BACK: Nontender without deformity or crepitance. No flank tenderness. NEURO: AOx3. Motor functions grossly nonfocal. SKIN: No rash or erythema of visible areas Initial Vital Signs Initial Vital Signs: Vital Signs Temperature 99 F 11/05/24 20:50 Pulse Rate 72 11/05/24 20:50 Respiratory Rate 16 11/05/24 20:50 Blood Pressure 191/92 H 11/05/24 20:50 Pulse Oximetry 97 11/05/24 20:50 Oxygen Delivery Method Room Air 11/05/24 20:50 Course Orders Ordered: Discontinued Medications Cefdinir (Cefdinir 300 Mg Capsule) 300 mg PO NOW ONE Stop: 11/06/24 00:44 Last Admin: 11/06/24 00:48 Dose: 300 mg Documented By: KIMBER Vital Signs Vital signs: Vital Signs - 8 hr 11/05/24 20:50 11/05/24 22:52 11/05/24 22:54 Temperature 99 F Pulse Rate 72 64 Respiratory Rate 16 Blood Pressure 191/92 H 205/91 H Pulse Oximetry 97 91 Oxygen Delivery Method Room Air 11/05/24 22:54 11/05/24 23:00 11/05/24 23:00 Temperature Pulse Rate 61 63 Respiratory Rate Blood Pressure 179/76 H Pulse Oximetry 97 96 Oxygen Delivery Method 11/05/24 23:30 11/05/24 23:31 11/05/24 23:31 Temperature Pulse Rate 60 64 Respiratory Rate Blood Pressure 166/79 H Pulse Oximetry 94 94 Oxygen Delivery Method 11/06/24 00:00 11/06/24 00:00 Temperature Pulse Rate 62 Respiratory Rate Blood Pressure 164/82 H Pulse Oximetry 95 Oxygen Delivery Method MDM - Male Genitourinary Lab Data Attestation: I reviewed the patient's lab results. Lab results narrative: Urine shows moderate bacteria with inflammatory cells, urine culture by protocol. Labs: Lab Results 11/05/24 Range/Units 22:53 Urine RBC 1-5/hpf D (0-5/HPF) Urine WBC 30-100/hpf H (0-5/HPF) Ur Squamous Epith Cells 0-1 /hpf (0-5/HPF) Urine Bacteria Moderate (10-30) H (None) Ur Culture Indicated? Specimen cultured Vol Urine Centrifuged 10ml (spun) [facility] Narrative Medical decision making narrative: 69-year-old male with history of prostate cancer, surgery, radiation therapy, subsequent urethral stricture status post suprapubic catheter placement last fall 2023, last urine infection last month treated with cefdinir, prior resistance to ciprofloxacin antibiotic, ongoing hyperbaric treatment, followed by [facility] and upcoming local urology appointment. Afebrile, sirs screen negative. Urinalysis suspicious for infection, and patient is symptomatic typical of urinary infection symptoms. We will treat with antibiotics. Oral dose of cefdinir given, prescription sent for further course cefdinir to his designated pharmacy. Encouraged to take antibiotic as directed for full course. Follow up with Urology as planned. Return precautions discussed. Discharged home. Discharge Plan Departure Patient Disposition: Home Clinical Impression: Urinary tract infection Activity Restrictions/Additional Instructions: Complex urology history, with history of remote prostate cancer diagnosis treated with surgery and radiation treatment, subsequent bladder sequelae and urethral strictures, suprapubic catheter placement December 2023, recurrent urinary tract infections, last month treated with cefdinir for urinary tract infection, prior urinary tract infection resistance to ciprofloxacin. No fever on triage. Typical urinary tract infection symptoms through the day today, ongoing hyperbaric treatments. Urinalysis suspicious for infection today, and you are symptomatic, we will treat with antibiotics. Oral dose of cefdinir given, prescription sent to your pharmacy for further cefdinir course. Follow up with Urology as planned. Return to this/nearest emergency department for any change worsening symptoms or any concerns prior. Prescriptions: New cefdinir 300 mg capsule 300 mg PO BID 10 Days Qty: 20 0RF No Action lisinopril 40 mg tablet 40 mg PO DAILY amlodipine 10 mg tablet 10 mg PO DAILY metformin 1,000 mg tablet 1,000 mg PO BID allopurinol 100 mg tablet 100 mg PO DAILY potassium chloride 20 mEq tablet,ER particles/crystals 20 meq PO BID rosuvastatin 40 mg tablet 40 mg PO ONCE PM (DME) [employer] [place] 3 Plus Sensor Device MISCELLANEOUS DAILY oxybutynin chloride 10 mg tablet extended release 24hr 10 mg PO DAILY acetaminophen [Tylenol Extra Strength] 500 mg tablet 500 mg PO Q6H PRN (Reason: pain) Referrals: Thierry,DoctorMD [Primary Care Provider, Medical] Stand Alone Forms: Patient Portal/API
[2024-11-06 00:30] VITALS: BP 177/83; PULSE 60; O2SAT 94
[2024-11-06] MEDS: CEFDINIR 300 MG CAPSULE PO (00:48)
[2024-11-06 00:52] VITALS: RESP 18; TEMP 36.8
== END 2024-11-06 00:52 | disposition home or self-care (01) ==
PROVIDERS: Emergency Provider Emergency Medicine
DX: N39.0 Urinary tract infection, site not specified (principal); N99.114 Postprocedural urethral stricture, male, unspecified; Z85.46 Personal history of malignant neoplasm of prostate; Z96.0 Presence of urogenital implants; Z87.891 Personal history of nicotine dependence
CPT/HCPCS: 81015; 87077; 87086; 87186; 99283

== ENCOUNTER → 2024-11-07 15:47 | Outpatient (CLI) | payer MEDICARE, BC, SELFPAY | LOC: WC 15:49 | PROVIDERS: Visit Provider Surgery | DX: N30.41 Irradiation cystitis with hematuria (principal) | CPT/HCPCS: 99183; G0277 ==

== ENCOUNTER → 2024-11-08 14:41 | Outpatient (CLI) | payer MEDICARE, BC, SELFPAY | PROVIDERS: Visit Provider Surgery | DX: N30.41 Irradiation cystitis with hematuria (principal) | CPT/HCPCS: 99183; G0277 ==

== ENCOUNTER 2024-11-08 15:48 | Emergency (ER) | payer MEDICARE, BC, SELFPAY ==
[2024-11-08] VITALS (15 sets, daily range): BP systolic 159–206; BP diastolic 72–98; PULSE 49–67; RESP 14–31; TEMP 36.8; O2SAT 93–100; BMI 29.7
--- NOTE | 2024-11-08 16:23 | ED.GENADULT ---
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 Patient presents today complaining that his bladder feels full and painful, he is also having urinary incontinence which is unusual for him. He was seen on November 05 diagnosed with urinary tract infection currently on cefdinir. Currently tolerating antibiotics, no flank pain no abdominal pain and no reports of fever or chills Related Data Home Medications ?Medication ?Instructions ?Recorded ?Confirmed allopurinol 100 mg tablet 100 mg PO DAILY 12/29/22 11/05/24 amlodipine 10 mg tablet 10 mg PO DAILY 12/29/22 11/05/24 lisinopril 40 mg tablet 40 mg PO DAILY 12/29/22 11/05/24 metformin 1,000 mg tablet 1,000 mg PO BID 12/29/22 11/05/24 acetaminophen 500 mg tablet 500 mg PO Q6H PRN pain 10/06/24 11/05/24 (Tylenol Extra Strength) blood-glucose sensor (FreeStyle 11/05/24 11/05/24 Cary 3 Plus Sensor device) oxybutynin chloride 10 mg 10 mg PO DAILY 11/05/24 11/05/24 tablet,extended release 24 hr potassium chloride 20 mEq 20 meq PO BID 11/05/24 11/05/24 tablet,extended release(part/cryst) rosuvastatin 40 mg tablet 40 mg PO ONCE PM 11/05/24 11/05/24 Previous Rx's ?Medication ?Instructions ?Recorded cefdinir 300 mg capsule 300 mg PO BID 10 days #20 caps 11/06/24 levofloxacin 750 mg tablet 750 mg PO DAILY #5 tabs 11/08/24 Allergies Allergy/AdvReac Type Severity Reaction Status Date / Time sulfamethoxazole (From AdvReac Mild Rash Verified 11/08/24 16:17 Bactrim) trimethoprim (From Bactrim) AdvReac Mild Rash Verified 11/08/24 16:17 Penicillins AdvReac Rash Verified 11/08/24 16:17 Sulfa (Sulfonamide AdvReac Rash Verified 11/08/24 16:17 Antibiotics) Review of Systems Review of Systems Narrative: Pertinent positive and negative findings as per HPI Patient History Medical History Hx of brachytherapy History of gout Hx of diabetes mellitus History of depression Hypertension Prostate cancer Surgical History Hx of vasectomy Hx of prostatectomy Hx of prostate biopsy Hx of cataract surgery Family History Uncle Cancer Mother CVA (cerebral vascular accident) Coronary artery disease Diabetes mellitus Hyperlipidemia Father Hyperlipidemia Kidney stones Social History marital status: number of children: 3 Tobacco: How many years used: 5 alcohol intake: current caffeine: Yes Type(s) of exercise: yoga frequency: 3-4 times per week duration: > 90 minutes/day tobacco type: cigarettes and pipe alcohol intake frequency: a few times a month Exam Initial Vital Signs Initial Vital Signs: Vital Signs Pulse Rate 63 11/08/24 16:13 Blood Pressure 206/98 H 11/08/24 16:13 Pulse Oximetry 98 11/08/24 16:13 General: Healthy appearing, in no acute distress. Able to give a complete and coherent history. Well-nourished well-developed HEENT: Moist mucous membranes, normal sclera with reactive pupils, Respiratory: Lungs are clear to auscultation, no wheezing no rales no rhonchi. Full and symmetrical air movement Cardiac: Regular rate and rhythm no murmurs no bruits Abdomen: Soft, minor suprapubic tenderness. Genitals: Does have some irritation from moisture secondary to urinary incontinence over his scrotum Skin: Warm and dry, no rashes Neurologic: Grossly neurologically intact with no obvious asymmetries or abnormalities Extremities: No trauma, well perfused Psych: Cooperative, appropriate insight and affect Course Orders Ordered: ED Orders 11/08/24 16:28 CBC Auto Diff [Complete Blood Count AUTO DIFF] Stat CMP [Comprehensive Metabolic Panel] Stat Lactate (Lactic Acid) Stat Procalcitonin Stat 11/08/24 16:30 Urinalysis and Microscopic Stat Urine Culture Stat Vital Signs Vital signs: Vital Signs - 8 hr 11/08/24 16:13 11/08/24 16:13 11/08/24 16:17 Temperature 98.2 F Pulse Rate 63 65 Respiratory Rate 18 Blood Pressure 206/98 H 206/98 H Pulse Oximetry 98 100 Oxygen Delivery Method Room Air 11/08/24 16:30 11/08/24 17:00 11/08/24 17:30 Temperature Pulse Rate 63 60 58 L Respiratory Rate 24 23 20 Blood Pressure 163/72 H Pulse Oximetry 98 98 95 Oxygen Delivery Method 11/08/24 17:50 11/08/24 17:50 11/08/24 18:00 Temperature Pulse Rate 57 L Respiratory Rate 25 H Blood Pressure 160/76 H 163/72 H Pulse Oximetry 96 Oxygen Delivery Method 11/08/24 18:00 11/08/24 18:30 11/08/24 18:30 Temperature Pulse Rate 67 56 L Respiratory Rate 31 H 14 Blood Pressure 159/73 H Pulse Oximetry 98 97 Oxygen Delivery Method 11/08/24 19:00 11/08/24 19:00 11/08/24 19:30 Temperature Pulse Rate 56 L Respiratory Rate 19 Blood Pressure 164/75 H 181/85 H Pulse Oximetry 94 Oxygen Delivery Method 11/08/24 19:30 11/08/24 20:00 11/08/24 20:00 Temperature Pulse Rate 55 L 54 L Respiratory Rate 28 H 18 Blood Pressure 167/78 H Pulse Oximetry 98 97 Oxygen Delivery Method 11/08/24 20:30 11/08/24 20:30 Temperature Pulse Rate 50 L Respiratory Rate 17 Blood Pressure 164/79 H Pulse Oximetry 95 Oxygen Delivery Method Medical Decision Making Lab Data 11/08/24 16:28 11/08/24 16:28 Labs: Lab Results 11/08/24 11/08/24 Range/Units 16:28 16:30 WBC 4.7 (4.5-11.0) X10^3/uL RBC 5.00 (4.5-5.9) X10^6/uL Hgb 14.7 (13.5-17.5) g/dL Hct 41.6 (41-53) % MCV 83.1 (80-100) fL MCH 29.4 (26-34) PG MCHC 35.4 (30-36) % RDW 14.3 (11.6-14.8) % Plt Count 194 (150-400) X10^3/uL Neut % (Auto) 74.0 (50-75) % Lymph % (Auto) 12.9 L (25-40) % Real % (Auto) 10.0 (3-14) % Eos % (Auto) 2.4 (2-4) % Baso % (Auto) 0.7 (0-2) % Neut # (Auto) 3500 (4154-7134) /uL Lymph # (Auto) 600 L (9990-4907) /uL Real # (Auto) 500 (0-900) /uL Eos # (Auto) 100 (0-450) /uL Baso # (Auto) 0 (0-100) /uL Sodium 137 (137-145) mmol/L Potassium 4.1 (3.4-5.1) mmol/L Chloride 102 (98-107) mmol/L Carbon Dioxide 22 (22-32) mmol/L BUN 14 (9-20) mg/dL Creatinine 1.20 (0.66-1.25) mg/dL Estimated GFR > 60 (>60) mL/min BUN/Creatinine Ratio 11.7 (6-22) Glucose 98 (70-99) mg/dL Lactate 0.9 (0.7-2.1) mmol/L Calcium 10.1 (8.4-10.2) mg/dL Total Bilirubin 1.0 (0.2-1.3) mg/dL AST 32 (17-59) IU/L ALT 20 (<50) IU/L Alkaline Phosphatase 50 (38-126) U/L Total Protein 7.5 (6.3-8.2) g/dL Albumin 4.8 (3.5-5.0) g/dL Globulin 2.7 (1.7-4.1) g/dL Albumin/Globulin Ratio 1.8 (1.0-2.8) Procalcitonin 0.130 (<0.5) ng/mL Urine Color Yellow Urine Appearance Clear Urine pH 6.0 (4.5-8.0) Ur Specific [place] <=1.005 (1.000-1.035) Urine Protein Negative (Negative) Urine Glucose (UA) Negative (Negative) g/dL Urine Ketones 1+ H (NEGATIVE) Urine Occult Blood 3+ H (Negative) Urine Nitrate Negative (Negative) Urine Bilirubin Negative (NEGATIVE) Urine Urobilinogen 0.2 (0.2) E.U./dL Ur Leukocyte Esterase Trace H (NEGATIVE) Urine RBC 1-5/hpf (0-5/HPF) Urine WBC 1-5/hpf (0-5/HPF) Ur Squamous Epith Cells 0-1 /hpf (0-5/HPF) Urine Bacteria Occasional (0-1) D (None) Urine Yeast 1-5/hpf H (None) Ur Culture Indicated? Specimen cultured Vol Urine Centrifuged 10ml (spun) MDM Narrative Medical decision making narrative: CC: Bladder pain, urinary incontinence with suprapubic catheter in place Complicating co-morbidities: Prostate cancer, suprapubic catheter, currently on cefdinir for urinary tract infection diagnosed 914 Data collected from: patient Medical records reviewed: Urine culture from 11/05 shows Organism 1 Escherichia coli Mcnabb Count 80,000 - 90,000 CFU/ml Action to follow No Further Workup Organism 2 Stenotrophomonas maltophilia Mcnabb Count 80,000 - 90,000 CFU/ml Action to follow Sent to Reference Lab for Workup E. COLI: Isolates that test susceptible to tetracycline are considered susceptible to doxycycline and minocycline. S. MALTOPHILIA: TREATMENT WITH LEVOFLOXACIN MONOTHERAPY IS NOT RECOMMENDED. ISOLATE SENT TO REFERENCE LAB FOR SUSCEPTIBILITY TESTING 1. Escherichia coli M.I.C. RX --------- --- * Amoxicillin/Clavulanate 4 S * Ampicillin 8 S * Cefazolin <=1 S * Ceftriaxone <=0.25 S * Ciprofloxacin >=4 R * Ertapenem <=0.12 S * Gentamicin <=1 S * Levofloxacin >=8 R * Meropenem <=0.25 S * Nitrofurantoin <=16 S * Tetracycline 2 S * Trimethoprim/Sulfamethoxazole <=20 S * Piperacillin/Tazobactam <=4 S Differential considered: Worsening urinary tract infection, pyelonephritis, sepsis, blocked urinary catheter Exam documented above, pertinent findings include: Benign without evidence of acute infection. Lab Test results independently reviewed as above. Pertinent findings: CBC is unremarkable Chemistries are reassuring Urine through catheter once it has been flushed is similar to previous, trace leukocyte esterase today he does not have any nitrites Treatments: Butler catheter is flushed draining better, with better drainage he is not noticing as much incontinence through his penis Oral levofloxacin Discussion: 69-year-old gentleman with prostate cancer, suprapubic Butler catheter recurrent urinary tract infections from the he is growing E coli and Stenotrophomonas maltophilia I suspect that his symptoms were combination of debris and partially blocked Butler catheter that has now been resolved. With better drainage the urine discomfort has improved. Will ask him to continue with the cefdinir, levofloxacin was added for the 2nd organism growing from urine culture on the . Patient is wondering why he continues to have recurrent urinary tract infections. Given his Butler catheter I do not have a complete explanation for that. I did ask that he discuss this with his urologist, he will be seeing him later in the week for Btuler catheter change. I believe it discussion of prophylactic antibiotics is worth having and certainly complicated by the fact that he does have a Butler catheter at this time there was no evidence of sepsis, severe pyelonephritis or reason for hospitalization and he will be discharged home Discharge Plan Departure Patient Disposition: Home Clinical Impression: Urinary tract infection, Suprapubic catheter, Obstructed suprapubic catheter Instructions: DI for Urinary Tract Infection (UTI) Activity Restrictions/Additional Instructions: Thank you for coming in today Your urine from the 16 is growing 2 different types of bacteria. To the cefdinir that you are currently taking I am going to add levofloxacin for an additional 5 days. Prescription for the new antibiotic was electronically transmitted to [facility] in [place] Please discuss this recurrent urinary tract infection with Dr. Mcgregor when you see him. CT feels there is any indication for prophylactic low-dose antibiotics chronically. If you find that you are getting worse or develop any new symptoms, please feel free to return to the emergency department for further evaluation. Prescriptions: New levofloxacin 750 mg tablet 750 mg PO DAILY Qty: 5 0RF No Action lisinopril 40 mg tablet 40 mg PO DAILY amlodipine 10 mg tablet 10 mg PO DAILY metformin 1,000 mg tablet 1,000 mg PO BID allopurinol 100 mg tablet 100 mg PO DAILY potassium chloride 20 mEq tablet,ER particles/crystals 20 meq PO BID rosuvastatin 40 mg tablet 40 mg PO ONCE PM (DME) FreeStyle Cary 3 Plus Sensor Device MISCELLANEOUS DAILY oxybutynin chloride 10 mg tablet extended release 24hr 10 mg PO DAILY cefdinir 300 mg capsule 300 mg PO BID 10 Days Qty: 20 0RF acetaminophen [Tylenol Extra Strength] 500 mg tablet 500 mg PO Q6H PRN (Reason: pain) Referrals: Miscellaneous,Doctor, MD [Primary Care Provider, Medical] Stand Alone Forms: Patient Portal/API
[2024-11-08 19:17] LABS: Alanine Aminotransferase 20 IU/L (<50); Albumin 4.8 g/dL (3.5-5.0); Albumin Globulin Ratio 1.8 (1.0-2.8); Alkaline Phosphatase 50 U/L (38-126); Blood Urea Nitrogen 14 mg/dL (9-20); Calcium 10.1 mg/dL (8.4-10.2); Carbon Dioxide 22 mmol/L (22-32); Chloride 102 mmol/L (98-107); Estimated Glomerular Filt Rate > 60 mL/min (>60); Globulin 2.7 g/dL (1.7-4.1); Glucose 98 mg/dL (70-99); HEMOLYSIS 41 (0-50); Potassium 4.1 mmol/L (3.4-5.1); Sodium 137 mmol/L (137-145); Total Protein 7.5 g/dL (6.3-8.2)
[2024-11-08 19:18] LABS: Lactate (Lactic Acid) 0.9 mmol/L (0.7-2.1)
[2024-11-08 19:34] LABS: Add Manual Diff / Slide Review NO; Hematocrit 41.6 % (41-53); Hemoglobin 14.7 g/dL (13.5-17.5); Lymphocytes Absolute Auto 600 /uL (1100-4500); Mean Corpuscular HGB Conc 35.4 % (30-36); Mean Corpuscular Hemoglobin 29.4 PG (26-34); Mean Corpuscular Volume 83.1 fL (80-100); Platelet Count 194 X10^3/uL (150-400); Procalcitonin 0.130 ng/mL (<0.5)
[2024-11-08 19:34] LABS: Appearance Urine UA CLEAR; Bilirubin Urine UA NEGATIVE (NEGATIVE); Color Urine UA YELLOW; Glucose Urine UA NEGATIVE (Negative); Ketones Urine UA 1+ (NEGATIVE); Leukocyte Esterase Urine UA TRACE (NEGATIVE); Nitrite Urine UA NEGATIVE (Negative); Occult Blood Urine UA 3+ (Negative); Protein Urine UA NEGATIVE (Negative); Specific Gravity Urine UA <=1.005 (1.000-1.035); Urobilinogen Urine UA 0.2 E.U./dL (0.2); pH Urine UA 6.0 (4.5-8.0)
[2024-11-08 19:45] LABS: Culture Indicated Urine Specimen Cultured
== END 2024-11-08 22:24 | disposition home or self-care (01) ==
PROVIDERS: Emergency Provider Emergency Medicine
DX: T83.090A Other mechanical complication of cystostomy catheter, initial encounter (principal); N30.41 Irradiation cystitis with hematuria
CPT/HCPCS: 36415; 80053; 81001; 83605; 84145; 85025; 87077; 87086; 87186; 99283; G0277

== ENCOUNTER → 2024-11-09 14:02 | Outpatient (CLI) | payer MEDICARE, BC, SELFPAY | LOC: WC 14:03 | PROVIDERS: Visit Provider Surgery | DX: N30.41 Irradiation cystitis with hematuria (principal) | CPT/HCPCS: 99183; G0277 ==

== ENCOUNTER → 2024-11-10 12:46 | Outpatient (CLI) | payer MEDICARE, BC, SELFPAY | LOC: WC 12:47 | PROVIDERS: Visit Provider Surgery | DX: N30.41 Irradiation cystitis with hematuria (principal) | CPT/HCPCS: 99183; G0277 ==

== ENCOUNTER → 2024-11-11 13:02 | Outpatient (CLI) | payer MEDICARE, BC, SELFPAY | LOC: WC 13:03 | PROVIDERS: Visit Provider Physician Assistant | DX: N30.41 Irradiation cystitis with hematuria (principal) | CPT/HCPCS: 99183; G0277 ==

== ENCOUNTER → 2024-11-15 16:19 | Outpatient (CLI) | payer MEDICARE, BC, SELFPAY | PROVIDERS: Visit Provider Surgery | DX: N30.41 Irradiation cystitis with hematuria (principal) | CPT/HCPCS: 99183; G0277 ==

== ENCOUNTER → 2024-11-16 14:17 | Outpatient (CLI) | payer MEDICARE, BC, SELFPAY | LOC: WC 14:22 | PROVIDERS: Visit Provider Surgery | DX: N30.41 Irradiation cystitis with hematuria (principal) | CPT/HCPCS: 99183; G0277 ==

== ENCOUNTER → 2024-11-17 12:30 | Outpatient (CLI) | payer MEDICARE, BC, SELFPAY | LOC: WC 11-18 16:13 | PROVIDERS: Visit Provider Surgery | DX: N30.41 Irradiation cystitis with hematuria (principal) | CPT/HCPCS: 99183; G0277 ==

== ENCOUNTER → 2024-11-18 15:59 | Outpatient (CLI) | payer MEDICARE, BC, SELFPAY | LOC: WC 16:01 | PROVIDERS: Visit Provider Physician Assistant | DX: N30.41 Irradiation cystitis with hematuria (principal) | CPT/HCPCS: 99183; G0277 ==

== ENCOUNTER → 2024-11-21 08:26 | Outpatient (CLI) | payer MEDICARE, BC, SELFPAY | LOC: WC 08:26 | PROVIDERS: Visit Provider Surgery | DX: N30.41 Irradiation cystitis with hematuria (principal) | CPT/HCPCS: 99183; G0277 ==

== ENCOUNTER → 2024-11-22 12:38 | Outpatient (CLI) | payer MEDICARE, BC, SELFPAY | LOC: WC 12:39 | PROVIDERS: Visit Provider Surgery | DX: N30.41 Irradiation cystitis with hematuria (principal); Z85.46 Personal history of malignant neoplasm of prostate; Z96.0 Presence of urogenital implants; N35.919 Unspecified urethral stricture, male, unspecified site; I10 Essential (primary) hypertension; H53.9 Unspecified visual disturbance; E11.9 Type 2 diabetes mellitus without complications; Z88.0 Allergy status to penicillin; Z87.891 Personal history of nicotine dependence; Z86.711 Personal history of pulmonary embolism; Z88.2 Allergy status to sulfonamides | CPT/HCPCS: 99183; 99211; 99213; G0277 ==

== ENCOUNTER → 2024-11-23 14:34 | Outpatient (CLI) | payer MEDICARE, BC, SELFPAY | LOC: WC 12-13 14:35 | PROVIDERS: Referring Provider Family Medicine; Visit Provider Surgery | DX: N30.41 Irradiation cystitis with hematuria (principal) | CPT/HCPCS: 99211; 99212 ==

== ENCOUNTER → 2024-11-24 14:16 | Outpatient (CLI) | payer MEDICARE, BC, SELFPAY | LOC: WC 14:17 | PROVIDERS: Visit Provider Surgery | DX: N30.41 Irradiation cystitis with hematuria (principal) | CPT/HCPCS: 99183; G0277 ==

== ENCOUNTER → 2024-11-25 15:14 | Outpatient (CLI) | payer MEDICARE, BC, SELFPAY | PROVIDERS: Referring Provider Urology; Visit Provider Physician Assistant | DX: N30.41 Irradiation cystitis with hematuria (principal) | CPT/HCPCS: 99183; G0277 ==

== ENCOUNTER → 2024-11-28 13:28 | Outpatient (CLI) | payer MEDICARE, BC, SELFPAY | LOC: WC 13:51 | PROVIDERS: Referring Provider Urology; Visit Provider Surgery | DX: N30.41 Irradiation cystitis with hematuria (principal) | CPT/HCPCS: 99183; G0277 ==

== ENCOUNTER → 2024-11-29 12:11 | Outpatient (CLI) | payer MEDICARE, BC, SELFPAY | LOC: WC 12:12 | PROVIDERS: Referring Provider Urology; Visit Provider Surgery | DX: N30.41 Irradiation cystitis with hematuria (principal) | CPT/HCPCS: 99183; G0277 ==

== ENCOUNTER → 2024-12-13 09:11 | Outpatient (CLI) | payer MEDICARE, BC, SELFPAY | PROVIDERS: Visit Provider Urology | DX: N39.0 Urinary tract infection, site not specified (principal); Z93.59 Other cystostomy status | CPT/HCPCS: 87077; 87086 ==

== ENCOUNTER 2025-01-14 20:13 | Emergency (ER) | payer MEDICARE, BC, SELFPAY ==
[2025-01-14] VITALS (7 sets, daily range): BP systolic 165–199; BP diastolic 74–93; PULSE 56–61; RESP 18; TEMP 36.4; O2SAT 95–99; BMI 29.7
--- NOTE | 2025-01-14 20:32 | DI.US.S_ITS ---
PROCEDURE: US SCROTUM INDICATIONS: right testicle pain TECHNIQUE: Real-time scanning was performed of the scrotum and testicles, with image documentation. Color and pulse Doppler interrogation was performed of both testicles. COMPARISON: None. FINDINGS: Right: Testicle is normal in size at 3.7 x 1.6 x 2.4 cm, and homogenous in echotexture. Epididymis is normal in overall size and morphology. Incidental epididymal cyst 1.0 cm. No hydrocele or varicoceles. Overlying scrotal skin is normal in thickness. Left: Testicle is normal in size at 3.3 x 1.7 x 2.4 cm, and homogeneous in echotexture. Epididymis is normal in overall size and morphology. No hydrocele or varicoceles. Overlying scrotal skin is normal in thickness. Doppler: Color and pulse Doppler demonstrate normal and symmetric arterial flow in both testicles. IMPRESSION: Unremarkable examination. Dictated by: Gordy Macedo M.D. on 01/14/2025 at 22:13 Approved by: Gordy Macedo M.D. on 01/14/2025 at 22:14
--- NOTE | 2025-01-14 20:46 | PC.NURSE ---
pt has a suprapubic catheter, states he has had several UTI and has been in here x2 recently for them and was in outside facility for sepsis this year. c/o sudden right sided flank pain with right testicle pain
[2025-01-14 20:55] LABS: Add Manual Diff / Slide Review NO; Appearance Urine UA CLEAR; Bilirubin Urine UA NEGATIVE (NEGATIVE); Color Urine UA YELLOW; Glucose Urine UA NEGATIVE (Negative); Hematocrit 39.6 % (41-53); Hemoglobin 13.7 g/dL (13.5-17.5); Ketones Urine UA NEGATIVE (NEGATIVE); Leukocyte Esterase Urine UA 1+ (NEGATIVE); Lymphocytes Absolute Auto 900 /uL (1100-4500); Mean Corpuscular HGB Conc 34.6 % (30-36); Mean Corpuscular Hemoglobin 29.6 PG (26-34); Mean Corpuscular Volume 85.7 fL (80-100); Nitrite Urine UA POSITIVE (Negative); Occult Blood Urine UA 3+ (Negative); Platelet Count 275 X10^3/uL (150-400); Protein Urine UA 1+ (Negative); Specific Gravity Urine UA 1.020 (1.000-1.035); Urobilinogen Urine UA 0.2 E.U./dL (0.2); pH Urine UA 5.5 (4.5-8.0)
[2025-01-14 21:05] LABS: Alanine Aminotransferase 23 IU/L (<50); Albumin 4.8 g/dL (3.5-5.0); Albumin Globulin Ratio 1.8 (1.0-2.8); Alkaline Phosphatase 52 U/L (38-126); Blood Urea Nitrogen 16 mg/dL (9-20); Calcium 9.9 mg/dL (8.4-10.2); Carbon Dioxide 25 mmol/L (22-32); Chloride 103 mmol/L (98-107); Estimated Glomerular Filt Rate > 60 mL/min (>60); Globulin 2.6 g/dL (1.7-4.1); Glucose 136 mg/dL (70-99); HEMOLYSIS < 15 (0-50); Lipase 63 U/L (23-300); Potassium 3.2 mmol/L (3.4-5.1); Sodium 139 mmol/L (137-145); Total Protein 7.4 g/dL (6.3-8.2)
[2025-01-14 21:07] LABS: Culture Indicated Urine Specimen Cultured
--- NOTE | 2025-01-14 21:41 | ED.GENADULT ---
HPI - General Adult General Chief complaint: Urogenital-Male Stated complaint: Severe pain in right side near kidney. Time Seen by Provider: 01/14/25 21:11 Source: patient Mode of arrival: Ambulatory History of Present Illness HPI narrative: 69-year-old male with history of prostate cancer, urethral strictures, eventual suprapubic catheter placement about 1 year ago [facility], followed also by local urologist Dr. Mcgregor, suprapubic catheter change in clinic last week for regular scheduled change, most recent urine infection was in October, grew out 2 different bacteria, treated with cefdinir and then a later course of nitrofurantoin with resolution of symptoms. Now having nontraumatic right testicular pain. No history of kidney stones recalled. Recent vacation to [facility], had right foot swelling, foot imaging, clinical diagnosis of gout, treated with colchicine, symptoms improved some. No fevers or chills. No back pain or flank pain. Not currently take any antibacterial antibiotics. Related Data Home Medications ?Medication ?Instructions ?Recorded ?Confirmed amlodipine 10 mg tablet 10 mg PO DAILY 12/29/22 01/11/25 lisinopril 40 mg tablet 40 mg PO DAILY 12/29/22 01/11/25 metformin 1,000 mg tablet 1,000 mg PO BID 12/29/22 01/11/25 acetaminophen 500 mg tablet 500 mg PO Q6H PRN pain 10/06/24 01/11/25 (Tylenol Extra Strength) blood-glucose sensor (FreeStyle 11/05/24 01/11/25 Cary 3 Plus Sensor device) oxybutynin chloride 10 mg 10 mg PO DAILY 11/05/24 01/11/25 tablet,extended release 24 hr potassium chloride 20 mEq 20 meq PO BID 11/05/24 01/11/25 tablet,extended release(part/cryst) rosuvastatin 40 mg tablet 40 mg PO ONCE PM 11/05/24 01/11/25 Previous Rx's ?Medication ?Instructions ?Recorded cefdinir 300 mg capsule 300 mg PO BID 10 days #20 caps 01/14/25 Allergies Allergy/AdvReac Type Severity Reaction Status Date / Time sulfamethoxazole (From AdvReac Mild Rash Verified 01/14/25 20:18 Bactrim) trimethoprim (From Bactrim) AdvReac Mild Rash Verified 01/14/25 20:18 Penicillins AdvReac Rash Verified 01/14/25 20:18 Sulfa (Sulfonamide AdvReac Rash Verified 01/14/25 20:18 Antibiotics) Patient History Medical History Hx of brachytherapy History of gout Hx of diabetes mellitus History of depression Hypertension Prostate cancer Surgical History Hx of vasectomy Hx of prostatectomy Hx of prostate biopsy Hx of cataract surgery Family History Uncle Cancer Mother CVA (cerebral vascular accident) Coronary artery disease Diabetes mellitus Hyperlipidemia Father Hyperlipidemia Kidney stones Social History marital status: number of children: 3 Smoking Status: Former smoker Tobacco: How many years used: 5 alcohol intake: current caffeine: Yes Type(s) of exercise: yoga frequency: 3-4 times per week duration: > 90 minutes/day Smoking Status: Former smoker tobacco type: cigarettes and pipe alcohol intake frequency: a few times a month Exam Narrative Exam Narrative: GENERAL: Well-developed patient, in mild distress. HEAD: Atraumatic. Normocephalic. EYES: Pupils equal round and reactive. Extraocular motions intact. No scleral icterus. No injection or drainage. ENT: Nose without bleeding, purulent drainage. Throat without erythema, tonsillar hypertrophy or exudate. Airway patent. NECK: Trachea midline. Non tender CARDIOVASCULAR: Regular rate and rhythm without murmurs, gallops, or rubs. RESPIRATORY: Clear to auscultation. Breath sounds equal bilaterally. No wheezes, rales, or rhonchi. GASTROINTESTINAL: Abdomen soft, non-tender, nondistended. Suprapubic catheter in place, site unremarkable. : Circumcised male genitalia, mild tenderness right testicle not obviously enlarged, no tenderness along sporadic cord, no obvious hernia on palpation nor with Valsalva. Left testicle not obviously enlarged and seems to be nontender. No scrotal edema or lesions. No penile lesions. EXTREMITIES: No edema or joint tenderness. BACK: Nontender without deformity or crepitance. No flank tenderness. NEURO: AOx3. Motor functions grossly nonfocal. SKIN: No rash or erythema of visible areas Initial Vital Signs Initial Vital Signs: Vital Signs Temperature 97.6 F 01/14/25 20:18 Pulse Rate 61 01/14/25 20:18 Respiratory Rate 18 01/14/25 20:18 Blood Pressure 199/93 H 01/14/25 20:18 Pulse Oximetry 99 01/14/25 20:18 Oxygen Delivery Method Room Air 01/14/25 20:18 Course Orders Ordered: ED Orders 01/14/25 20:32 US scrotum Stat 01/14/25 20:40 Complete Blood Count AUTO DIFF Stat Comprehensive Metabolic Panel Stat Lipase Stat Urinalysis and Microscopic Stat Urine Culture Stat 01/14/25 21:42 CT kidney ureter bladder (KUB) Stat Discontinued Medications Hydrocodone Bitart/Acetaminophen (Hydrocodone/Acet 5/325 Prepack) 1 bottle MISC DIRECTED ONE Stop: 01/14/25 23:26 Last Admin: 01/14/25 23:35 Dose: 1 bottle Documented By: VEDA Hydromorphone HCl (Hydromorphone Hcl 0.5 Mg/0.5 Ml Syringe) 0.5 mg IV NOW ONE Stop: 01/14/25 23:13 Last Admin: 01/14/25 23:21 Dose: 0.5 mg Documented By: VEDA Ceftriaxone Sodium 1,000 mg/ (Sodium Chloride) 100 mls @ 200 mls/hr IV NOW ONE Stop: 01/14/25 21:43 Last Infusion: 01/14/25 23:15 Dose: Infused Documented By: Admin: 01/14/25 22:17 Dose: 200 mls/hr Documented By: VEDA Ondansetron HCl (Ondansetron 4 Mg/2 Ml Inj) 4 mg IV NOW PRN PRN Reason: Nausea And Vomiting Ondansetron HCl (Ondansetron 4 Mg Odt) 4 mg PO NOW PRN PRN Reason: Nausea And Vomiting Ondansetron HCl (Ondansetron 4 Mg/2 Ml Inj) 4 mg IV NOW ONE Stop: 01/14/25 23:13 Last Admin: 01/14/25 23:21 Dose: 4 mg Documented By: VEDA Potassium Chloride (Potassium Chloride 20 Meq/15 Ml Udc) 40 meq PO NOW ONE Stop: 01/14/25 21:44 Last Admin: 01/14/25 22:17 Dose: 40 meq Documented By: VEDA Vital Signs Vital signs: Vital Signs - 8 hr 01/14/25 20:18 01/14/25 20:50 01/14/25 20:51 Temperature 97.6 F Pulse Rate 61 56 L 57 L Respiratory Rate 18 18 Blood Pressure 199/93 H 195/91 H Pulse Oximetry 99 95 95 Oxygen Delivery Method Room Air Room Air 01/14/25 22:22 01/14/25 22:23 01/14/25 22:23 Temperature Pulse Rate 61 Respiratory Rate Blood Pressure 172/81 H Pulse Oximetry 95 96 Oxygen Delivery Method 01/14/25 22:30 01/14/25 22:30 01/14/25 23:00 Temperature Pulse Rate 60 58 L Respiratory Rate Blood Pressure 165/76 H Pulse Oximetry 95 97 Oxygen Delivery Method 01/14/25 23:00 Temperature Pulse Rate Respiratory Rate 18 Blood Pressure 166/74 H Pulse Oximetry Oxygen Delivery Method Medical Decision Making Lab Data Lab results reviewed: Yes I reviewed the patient's lab results. Lab results narrative: White blood cell count 9100, hemoglobin 13.7, platelets 275,000. Glucose 136. Normal renal function. Normal serum CO2 and sodium. Serum potassium 3.2 mildly decreased. Liver functions and lipase normal. Urinalysis suspicious for infection with many bacteria and some inflammatory changes, urine culture triggered. 01/14/25 20:40 01/14/25 20:40 Labs: Lab Results 01/14/25 Range/Units 20:40 WBC 9.1 (4.5-11.0) X10^3/uL RBC 4.63 (4.5-5.9) X10^6/uL Hgb 13.7 (13.5-17.5) g/dL Hct 39.6 L (41-53) % MCV 85.7 (80-100) fL MCH 29.6 (26-34) PG MCHC 34.6 (30-36) % RDW 15.9 H (11.6-14.8) % Plt Count 275 (150-400) X10^3/uL Neut % (Auto) 80.3 H (50-75) % Lymph % (Auto) 10.1 L (25-40) % Geary % (Auto) 4.8 (3-14) % Eos % (Auto) 4.2 H (2-4) % Baso % (Auto) 0.6 (0-2) % Neut # (Auto) 7300 H (8740-6151) /uL Lymph # (Auto) 900 L (7870-3078) /uL Geary # (Auto) 400 (0-900) /uL Eos # (Auto) 400 (0-450) /uL Baso # (Auto) 100 (0-100) /uL Sodium 139 (137-145) mmol/L Potassium 3.2 L (3.4-5.1) mmol/L Chloride 103 (98-107) mmol/L Carbon Dioxide 25 (22-32) mmol/L BUN 16 (9-20) mg/dL Creatinine 1.14 (0.66-1.25) mg/dL Estimated GFR > 60 (>60) mL/min BUN/Creatinine Ratio 14.0 (6-22) Glucose 136 H (70-99) mg/dL Calcium 9.9 (8.4-10.2) mg/dL Total Bilirubin 0.3 (0.2-1.3) mg/dL AST 24 (17-59) IU/L ALT 23 (<50) IU/L Alkaline Phosphatase 52 (38-126) U/L Total Protein 7.4 (6.3-8.2) g/dL Albumin 4.8 (3.5-5.0) g/dL Globulin 2.6 (1.7-4.1) g/dL Albumin/Globulin Ratio 1.8 (1.0-2.8) Lipase 63 (23-300) U/L Urine Color Yellow Urine Appearance Clear Urine pH 5.5 (4.5-8.0) Ur Specific [place] 1.020 (1.000-1.035) Urine Protein 1+ H (Negative) Urine Glucose (UA) Negative (Negative) g/dL Urine Ketones Negative (NEGATIVE) Urine Occult Blood 3+ H (Negative) Urine Nitrate Positive H (Negative) Urine Bilirubin Negative (NEGATIVE) Urine Urobilinogen 0.2 (0.2) E.U./dL Ur Leukocyte Esterase 1+ H (NEGATIVE) Urine RBC 30-100/hpf H (0-5/HPF) Urine WBC 30-100/hpf H (0-5/HPF) Ur Squamous Epith Cells 0-1 /hpf (0-5/HPF) Urine Bacteria Many (>30) H (None) Ur Culture Indicated? Specimen cultured Vol Urine Centrifuged Low vol <10ml (spun) A Imaging Data Ultrasound scrotum: Radiologist's Impression: [address] [id number] Ultrasound Report Signed Patient: Brayden Guo MR#: [id number] : 1955 Acct:[id number] Age/Sex: 69 / M Date of Service: 01/14/25 Loc: ED Accession Number: [id number] Procedure: US scrotum Ordering Provider: German Diop MD PROCEDURE: US SCROTUM INDICATIONS: right testicle pain TECHNIQUE: Real-time scanning was performed of the scrotum and testicles, with image documentation. Color and pulse Doppler interrogation was performed of both testicles. COMPARISON: None. FINDINGS: Right: Testicle is normal in size at 3.7 x 1.6 x 2.4 cm, and homogenous in echotexture. Epididymis is normal in overall size and morphology. Incidental epididymal cyst 1.0 cm. No hydrocele or varicoceles. Overlying scrotal skin is normal in thickness. Left: Testicle is normal in size at 3.3 x 1.7 x 2.4 cm, and homogeneous in echotexture. Epididymis is normal in overall size and morphology. No hydrocele or varicoceles. Overlying scrotal skin is normal in thickness. Doppler: Color and pulse Doppler demonstrate normal and symmetric arterial flow in both testicles. IMPRESSION: Unremarkable examination. Dictated by: Gordy Macedo M.D. on 01/14/2025 at 22:13 Approved by: Gordy Macedo M.D. on 01/14/2025 at 22:14 CT scan - abdomen/pelvis: Radiologist's Impression: [address] [id number] [address] Scan Report Signed Patient: Brayden Guo MR#: [id number] : 1955 Acct:[id number] Age/Sex: 69 / M Date of Service: 01/14/25 Loc: ED Accession Number: [id number] Procedure: CT kidney ureter bladder (KUB) Ordering Provider: German Diop MD PROCEDURE: CT KIDNEY URETER BLADDER (KUB) INDICATIONS: UTI, eval for stone TECHNIQUE: CT of the abdomen and pelvis was obtained without intravenous contrast. Coronal and sagittal reformats were performed. For radiation dose reduction, the following was used: automated exposure control, adjustment of mA and/or kV according to patient size. COMPARISON: [facility], CT, CT KIDNEY URETER BLADDER (KUB), 08/18/2024, 18:13. FINDINGS: Image quality: Diagnostic. Lower Chest: No significant findings. ABDOMEN: Liver: No contour-deforming mass. Gallbladder: No radiopaque gallstones or wall thickening. Biliary ducts: No biliary dilation. Pancreas: No ductal dilation. Spleen: Size is within normal limits. Adrenal Glands: Unchanged left adrenal myelolipoma 1.3 cm. Kidneys and Ureters: Right ureteral dilation with fat stranding along the right ureter. Mild right hydronephrosis. No left hydronephrosis.. No renal calculi. Simple renal cysts. Stomach and Bowel: Normal colonic caliber, without significant wall thickening. Peritoneum: No abnormal intraperitoneal fluid. No free air. Ventral Wall: No significant hernia. Abdominal Nodes: No retroperitoneal or mesenteric adenopathy by size criteria. Vessels: Aorta and inferior vena cava are normal in size. PELVIS: Pelvic Organs: Prostatectomy Bladder: Decompressed by a suprapubic catheter. Pericystic fluid. Pelvic Nodes: No enlarged lymph nodes. Miscellaneous: No inguinal hernias are seen. Bones: No aggressive osseous abnormality. IMPRESSION: Right hydroureter and mild hydronephrosis, without visible obstructing lesion. Fat stranding along the right ureter and bladder consistent with urinary tract infection. Dictated by: Gordy Macedo M.D. on 01/14/2025 at 22:55 Approved by: Gordy Macedo M.D. on 01/14/2025 at 23:01 MDM Narrative Medical decision making narrative: 69-year-old male with history of suprapubic catheter, recurrent urinary tract infection, having nontraumatic right scrotal discomfort. Minimal tenderness right testis and epididymal region. Ultrasound scrotum ordered. Labs including urinalysis pending. DDx consider primary scrotal pathology such as epididymitis/orchitis, consider heard pain from ureteral stone, consider referred pain from inguinal hernia though not obvious on examination. Requesting pain medication, IV Dilaudid, symptoms improved. Lab data: White blood cell count 9100, hemoglobin 13.7, platelets 275,000. Glucose 136. Normal renal function. Normal serum CO2 and sodium. Serum potassium 3.2 mildly decreased. Liver functions and lipase normal. Urinalysis suspicious for infection with many bacteria and some inflammatory changes, urine culture triggered. Potassium low, oral potassium given. Ultrasound scrotum, no acute changes, no torsion. See radiology report. CT abdomen and pelvis. IMPRESSION: Right hydroureter and mild hydronephrosis, without visible obstructing lesion. Fat stranding along the right ureter and bladder consistent with urinary tract infection. See radiology report. Lab review, most recent urine culture results. Urine culture last result from 11/2024 showed E coli greater than 100,000 colonies, resistant to ciprofloxacin/levofloxacin, otherwise sensitive. Patient with history of penicillin and sulfa allergies, prior response to nitrofurantoin, prior treatment with cefdinir. IV ceftriaxone given for urinary tract infection. We will prescribe cefdinir for possible developing upper tract infection given unilateral hydronephrosis without ureteral stone changes on CT imaging. Patient seems agreeable to this plan. Prescription sent to requested pharmacy for cefdinir 10 day course. Follow up advised with his [facility] urologist as scheduled early January visit. Return precautions discussed. Discharged home with family. Discharge Plan Departure Patient Disposition: Home Clinical Impression: Urinary tract infection Instructions: DI for Kidney Infection Activity Restrictions/Additional Instructions: History of prostate cancer, urinary stricture, suprapubic catheter, recurrent urinary tract infections. Most recent urine culture located from last month, showed E coli that was sensitive to most antibiotic but resistant to ciprofloxacin/levofloxacin antibiotic. You have allergy to penicillins and sulfa antibiotics. Nontraumatic right testicle/crit scrotal pain tonight. No history of known kidney stones recalled. Ultrasound of the scrotal contents showed no obvious inflammatory changes, with good blood flow to both testes per Radiology report. CT scan of the abdomen showed some urinary tract infection changes, some hydronephrosis dilatation on the right side without urinary stone identified, suspicious for infection. His since the infection by imaging seems lateralized, you might be at some risk of kidney infection more so than simple lower cystitis bladder infection. We might choose cefdinir antibiotic take rather than your previous nitrofurantoin antibiotic if upper tract infection is bruising. IV ceftriaxone given in the emergency department. Prescription for cefdinir course of antibiotic sent to your requested pharmacy. Take antibiotics as directed. Take pain medication as needed, home pack of hydrocodone/acetaminophen. Recheck with your [facility] urologist as planned early January. Return earlier to this/nearest emergency department for any change worsening symptoms or any concerns prior. Prescriptions: New cefdinir 300 mg capsule 300 mg PO BID 10 Days Qty: 20 0RF No Action lisinopril 40 mg tablet 40 mg PO DAILY amlodipine 10 mg tablet 10 mg PO DAILY metformin 1,000 mg tablet 1,000 mg PO BID potassium chloride 20 mEq tablet,ER particles/crystals 20 meq PO BID rosuvastatin 40 mg tablet 40 mg PO ONCE PM (DME) [email or web address] Cary 3 Plus Sensor Device MISCELLANEOUS DAILY oxybutynin chloride 10 mg tablet extended release 24hr 10 mg PO DAILY acetaminophen [Tylenol Extra Strength] 500 mg tablet 500 mg PO Q6H PRN (Reason: pain) Referrals: Phillip Mcgregor DO [Primary Care Provider, Urology] Stand Alone Forms: Patient Portal/API
[2025-01-14] MEDS: POTASSIUM CHLORIDE 20 MEQ/15 ML UDC 40 MEQ PO (22:17)
[2025-01-14] MEDS: ONDANSETRON 4 MG/2 ML INJ IV (23:21)
== END 2025-01-14 23:45 | disposition home or self-care (01) ==
PROVIDERS: Emergency Provider Emergency Medicine; PCP Urology
DX: N39.0 Urinary tract infection, site not specified (principal); N50.811 Right testicular pain; Z88.0 Allergy status to penicillin; Z88.2 Allergy status to sulfonamides
CPT/HCPCS: 36415; 74176; 76870; 80053; 81001; 83690; 85025; 87077; 87086; 87186; 93976; 96365; 96375; 99284; J0696; J1171; J2405; J7050

== ENCOUNTER 2025-02-13 05:46 | Emergency (ER) | payer MEDICARE, BC, SELFPAY ==
[2025-02-13 06:05] VITALS: BP 174/84; PULSE 76; RESP 18; TEMP 37.6; O2SAT 97
--- NOTE | 2025-02-13 06:10 | ED.MALEGU ---
HPI - Male Genitourinary General Chief complaint: Urogenital-Male Stated complaint: Back Pain, Abdominal Pain Time Seen by Provider: 02/13/25 05:54 Source: patient Mode of arrival: Ambulatory History of Present Illness HPI Narrative: 69 year old male with a history of prostate cancer, urethral strictures, eventual suprapubic catheter placement followed by local urologist here Dr. Mcgregor. Patient has history of frequent UTI. Recent urine culture from 01/14/25 grew Klebsiella oxytoca that was sensitive to everything except ampicillin and ciprofloxacin. The patient antibiotic allergies include sulfa penicillins and Bactrim. Patient's symptoms today include bilateral CVA tenderness and fever and chills subjective that started yesterday. Patient denies any other symptoms. Related Data Home Medications ?Medication ?Instructions ?Recorded ?Confirmed amlodipine 10 mg tablet 10 mg PO DAILY 12/29/22 01/11/25 lisinopril 40 mg tablet 40 mg PO DAILY 12/29/22 01/11/25 metformin 1,000 mg tablet 1,000 mg PO BID 12/29/22 01/11/25 acetaminophen 500 mg tablet 500 mg PO Q6H PRN pain 10/06/24 01/11/25 (Tylenol Extra Strength) blood-glucose sensor (FreeStyle 11/05/24 01/11/25 Cary 3 Plus Sensor device) oxybutynin chloride 10 mg 10 mg PO DAILY 11/05/24 01/11/25 tablet,extended release 24 hr potassium chloride 20 mEq 20 meq PO BID 11/05/24 01/11/25 tablet,extended release(part/cryst) rosuvastatin 40 mg tablet 40 mg PO ONCE PM 11/05/24 01/11/25 Previous Rx's ?Medication ?Instructions ?Recorded cephalexin 500 mg capsule 500 mg PO BID #14 caps 02/13/25 Allergies Allergy/AdvReac Type Severity Reaction Status Date / Time sulfamethoxazole (From AdvReac Mild Rash Verified 01/14/25 20:18 Bactrim) trimethoprim (From Bactrim) AdvReac Mild Rash Verified 01/14/25 20:18 Penicillins AdvReac Rash Verified 01/14/25 20:18 Sulfa (Sulfonamide AdvReac Rash Verified 01/14/25 20:18 Antibiotics) Review of Systems Review of Systems ROS Unobtainable: All systems reviewed & are unremarkable except as noted in HPI and below Patient History Medical History Hx of brachytherapy History of gout Hx of diabetes mellitus History of depression Hypertension Prostate cancer Surgical History Hx of vasectomy Hx of prostatectomy Hx of prostate biopsy Hx of cataract surgery Family History Uncle Cancer Mother CVA (cerebral vascular accident) Coronary artery disease Diabetes mellitus Hyperlipidemia Father Hyperlipidemia Kidney stones Social History marital status: number of children: 3 Tobacco: How many years used: 5 alcohol intake: current caffeine: Yes Type(s) of exercise: yoga frequency: 3-4 times per week duration: > 90 minutes/day tobacco type: cigarettes and pipe alcohol intake frequency: a few times a month Exam Narrative Exam Narrative: General: Patient appears to be in no acute distress, acting appropriately Head: normocephalic, atraumatic, HEENT: Pupils equal round reactive, eyes tracking well, neck supple, no JVD Heart: regular rate and rhythm, no murmurs, rubs, or gallops heard Lungs: clear to auscultation, no adventitious sounds Abdomen: soft , bilateral CVA tenderness, nondistended, positive bowel sounds Neurological: no focal neurological signs, moving all extremities well, alert and oriented x3, Psych: good judgment ,good insight, mood is normal. Initial Vital Signs Initial Vital Signs: Vital Signs Temperature 99.7 F H 02/13/25 06:05 Pulse Rate 76 02/13/25 06:05 Respiratory Rate 18 02/13/25 06:05 Blood Pressure 174/84 H 02/13/25 06:05 Pulse Oximetry 97 02/13/25 06:05 Oxygen Delivery Method Room Air 02/13/25 06:05 Course Orders Ordered: ED Orders 02/13/25 06:03 Urine Culture Stat 02/13/25 06:08 UA Complete [Urinalysis and Microscopic] Stat 02/13/25 06:33 CBC Auto Diff [Complete Blood Count AUTO DIFF] Stat CMP [Comprehensive Metabolic Panel] Stat Lactate (Lactic Acid) Stat Procalcitonin Stat Discontinued Medications Ceftriaxone Sodium 1,000 mg/ (Sodium Chloride) 100 mls @ 200 mls/hr IV NOW ONE Stop: 02/13/25 06:19 Last Infusion: 02/13/25 07:17 Dose: Infused Vital Signs Vital signs: Vital Signs - 8 hr 02/13/25 06:05 02/13/25 06:15 02/13/25 06:30 Temperature 99.7 F H Pulse Rate 76 73 65 Respiratory Rate 18 Blood Pressure 174/84 H Pulse Oximetry 97 95 96 Oxygen Delivery Method Room Air 02/13/25 06:30 Temperature Pulse Rate Respiratory Rate Blood Pressure 125/71 Pulse Oximetry Oxygen Delivery Method MDM - Male Genitourinary Lab Data 02/13/25 06:33 02/13/25 06:33 Labs: Lab Results 02/13/25 02/13/25 Range/Units 06:03 06:33 WBC 7.6 (4.5-11.0) X10^3/uL RBC 4.80 (4.5-5.9) X10^6/uL Hgb 14.1 (13.5-17.5) g/dL Hct 40.9 L (41-53) % MCV 85.2 (80-100) fL MCH 29.4 (26-34) PG MCHC 34.5 (30-36) % RDW 14.6 (11.6-14.8) % Plt Count 200 (150-400) X10^3/uL Neut % (Auto) 81.1 H (50-75) % Lymph % (Auto) 8.5 L (25-40) % [place] % (Auto) 8.5 (3-14) % Eos % (Auto) 1.4 L (2-4) % Baso % (Auto) 0.5 (0-2) % Neut # (Auto) 6100 (7322-7923) /uL Lymph # (Auto) 600 L (9186-3678) /uL [place] # (Auto) 600 (0-900) /uL Eos # (Auto) 100 (0-450) /uL Baso # (Auto) 0 (0-100) /uL Sodium 138 (137-145) mmol/L Potassium 3.8 (3.4-5.1) mmol/L Chloride 105 (98-107) mmol/L Carbon Dioxide 22 (22-32) mmol/L BUN 17 (9-20) mg/dL Creatinine 1.23 (0.66-1.25) mg/dL Estimated GFR > 60 (>60) mL/min BUN/Creatinine Ratio 13.8 (6-22) Glucose 127 H (70-99) mg/dL Lactate 0.9 (0.7-2.1) mmol/L Calcium 9.6 (8.4-10.2) mg/dL Total Bilirubin 0.8 (0.2-1.3) mg/dL AST 21 (17-59) IU/L ALT 18 (<50) IU/L Alkaline Phosphatase 43 (38-126) U/L Total Protein 7.1 (6.3-8.2) g/dL Albumin 4.5 (3.5-5.0) g/dL Globulin 2.6 (1.7-4.1) g/dL Albumin/Globulin Ratio 1.7 (1.0-2.8) Procalcitonin 0.120 (<0.5) ng/mL Urine Color Yellow Urine Appearance Cloudy Urine pH 6.0 (4.5-8.0) Ur Specific Walsh 1.015 (1.000-1.035) Urine Protein 2+ H (Negative) Urine Glucose (UA) Negative (Negative) g/dL Urine Ketones Trace H (NEGATIVE) Urine Occult Blood 2+ H (Negative) Urine Nitrate Positive H (Negative) Urine Bilirubin Negative (NEGATIVE) Urine Urobilinogen 0.2 (0.2) E.U./dL Ur Leukocyte Esterase 2+ H (NEGATIVE) Urine RBC 1-5/hpf D (0-5/HPF) Urine WBC 30-100/hpf H (0-5/HPF) Ur Squamous Epith Cells 0-1 /hpf (0-5/HPF) Urine Bacteria Many (>30) H (None) Ur Culture Indicated? Specimen cultured Vol Urine Centrifuged 10ml (spun) MDM Narrative Medical decision making narrative: 69-year-old male with frequent UTIs from a permanent suprapubic catheter. Patient last culture grew Klebsiella. Patient UA today again showed a UTI picture. Patient was given a dose of Rocephin here in the ED. Considering last culture was sensitive to cephalosporins we will go ahead and treat for a week with cephalexin. Advised to follow up for worsening symptoms. Follow up on urine cultures here in the ED. Discharge Plan Departure Patient Disposition: Home Clinical Impression: Urinary tract infection Qualifiers: Urinary tract infection type: catheter-associated UTI Indwelling urinary catheter type: indwelling urethral catheter Encounter type: initial encounter Qualified Code(s): T83.511A - Infection and inflammatory reaction due to indwelling urethral catheter, initial encounter Instructions: DI for Urinary Tract Infection (UTI) Activity Restrictions/Additional Instructions: Take antibiotics as prescribed. Follow up sooner if infection worsens. Hydrate well. Prescriptions: New cephalexin 500 mg capsule 500 mg PO BID Qty: 14 0RF No Action lisinopril 40 mg tablet 40 mg PO DAILY amlodipine 10 mg tablet 10 mg PO DAILY metformin 1,000 mg tablet 1,000 mg PO BID potassium chloride 20 mEq tablet,ER particles/crystals 20 meq PO BID rosuvastatin 40 mg tablet 40 mg PO ONCE PM (DME) FreeStyle Cary 3 Plus Sensor Device MISCELLANEOUS DAILY oxybutynin chloride 10 mg tablet extended release 24hr 10 mg PO DAILY acetaminophen [Tylenol Extra Strength] 500 mg tablet 500 mg PO Q6H PRN (Reason: pain) Referrals: Phillip Mcgregor DO [Primary Care Provider, Urology] Stand Alone Forms: Patient Portal/API
[2025-02-13 06:13] LABS: Appearance Urine UA CLOUDY; Bilirubin Urine UA NEGATIVE (NEGATIVE); Color Urine UA YELLOW; Glucose Urine UA NEGATIVE (Negative); Ketones Urine UA TRACE (NEGATIVE); Leukocyte Esterase Urine UA 2+ (NEGATIVE); Nitrite Urine UA POSITIVE (Negative); Occult Blood Urine UA 2+ (Negative); Protein Urine UA 2+ (Negative); Specific Gravity Urine UA 1.015 (1.000-1.035); Urobilinogen Urine UA 0.2 E.U./dL (0.2); pH Urine UA 6.0 (4.5-8.0)
[2025-02-13 06:15] VITALS: PULSE 73; O2SAT 95
[2025-02-13 06:20] LABS: Culture Indicated Urine Specimen Cultured
[2025-02-13 06:30] VITALS: BP 125/71; PULSE 65; O2SAT 96
[2025-02-13 06:45] LABS: Add Manual Diff / Slide Review NO; Hematocrit 40.9 % (41-53); Hemoglobin 14.1 g/dL (13.5-17.5); Lymphocytes Absolute Auto 600 /uL (1100-4500); Mean Corpuscular HGB Conc 34.5 % (30-36); Mean Corpuscular Hemoglobin 29.4 PG (26-34); Mean Corpuscular Volume 85.2 fL (80-100); Platelet Count 200 X10^3/uL (150-400)
[2025-02-13 07:00] VITALS: BP 129/63; PULSE 64; RESP 16; O2SAT 93
[2025-02-13 07:00] LABS: Lactate (Lactic Acid) 0.9 mmol/L (0.7-2.1)
[2025-02-13 07:01] LABS: Alanine Aminotransferase 18 IU/L (<50); Albumin 4.5 g/dL (3.5-5.0); Albumin Globulin Ratio 1.7 (1.0-2.8); Alkaline Phosphatase 43 U/L (38-126); Blood Urea Nitrogen 17 mg/dL (9-20); Calcium 9.6 mg/dL (8.4-10.2); Carbon Dioxide 22 mmol/L (22-32); Chloride 105 mmol/L (98-107); Estimated Glomerular Filt Rate > 60 mL/min (>60); Globulin 2.6 g/dL (1.7-4.1); Glucose 127 mg/dL (70-99); HEMOLYSIS < 15 (0-50); Potassium 3.8 mmol/L (3.4-5.1); Sodium 138 mmol/L (137-145); Total Protein 7.1 g/dL (6.3-8.2)
[2025-02-13 07:18] LABS: Procalcitonin 0.120 ng/mL (<0.5)
== END 2025-02-13 07:32 | disposition home or self-care (01) ==
PROVIDERS: Emergency Provider Family Medicine; PCP Urology
DX: N39.0 Urinary tract infection, site not specified (principal); M54.9 Dorsalgia, unspecified; R50.9 Fever, unspecified; R39.853 Costovertebral (angle) tenderness, bilateral; T83.511A Infection and inflammatory reaction due to indwelling urethral catheter, initial encounter
CPT/HCPCS: 36415; 80053; 81001; 83605; 84145; 85025; 87086; 96365; 99284; J0696; J7050

== ENCOUNTER → 2025-02-22 09:31 | Outpatient (CLI) | payer MEDICARE, BC, SELFPAY | PROVIDERS: PCP Family Medicine; Visit Provider Urology | DX: T83.511A Infection and inflammatory reaction due to indwelling urethral catheter, initial encounter (principal); N39.0 Urinary tract infection, site not specified; N35.919 Unspecified urethral stricture, male, unspecified site | CPT/HCPCS: 87086 ==